=== PATIENT | female | born 1940 | race Caucasian/White ===

== ENCOUNTER 2018-01-22 09:00 | Outpatient (RCR) | payer MEDICARE, SELFPAY ==
--- NOTE | 2017-12-11 14:05 | PT.OIE ---
Current Diagnoses Other female genital prolapse (12/11/17) Female genital prolapse, unspecified (12/11/17) Past Surgical History History of cataract removal with insertion of prosthetic lens History of knee replacement History of knee replacement History of tonsillectomy Status post appendectomy Status post hysterectomy with oophorectomy Physical Therapy Initial Evaluation PT-OP-A Visit Information Start: 12/11/17 11:44 Freq: Status: Active Protocol: Activity Type Activity Date Activity User E-Sign Co-Sign Detail Recorded Client Recorded Date Recorded By Document 12/11/17 09:00 [facility] [email or web address] 12/11/17 11:49 [facility] 12/11/17 09:00 Out-Patient Physical Therapy Visit Information [Visit Information] -Visit Type Initial Evaluation -Visit Start Time 09:00 -Visit Stop Time 09:45 -Total Visit Minutes 1 -Visit Number 1 -Number of SYSTEM OPERATOR Visits 0 [Evaluation Information] -Evaluation Date 12/11/17 PT-OP-B Current Condition Start: 12/11/17 11:44 Freq: Status: Active Protocol: Activity Type Activity Date Activity User E-Sign Co-Sign Detail Recorded Client Recorded Date Recorded By Document 12/11/17 11:49 [facility] [email or web address] 12/11/17 11:58 [facility] 12/11/17 11:49 Current Condition [History of Current Condition] -Onset Date symptoms have been progressing for 5 years -Current Complaints urinary incontinence leaking 4-6 times per day and during the night -History of Current Condition 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 She has also been dealing with diarrhea and has had fecal soilage with this. -Prior Treatments and Tests Tonie has started back using a estrace ring and has been using this for approximately 2 months [Treatment Goals] -Patient/Caregiver Goals Tonie would like to begin working on a home exercise program for strengthening her pelvic floor to minimize her urinary incontinence. She reports she would like to avoid surgery if possilbe. [Prior Functional Status] -Baseline Function- ADL's Independent [Current Functional Impairments ( Reported)] -Functional Limitations- Recreation/ Tonie is limited Hobbies in walking for exercise due to urinary leakage and foot pain. She would like to work up to a pool exercise progam for strenghening. [Personal Factors] -Other Personal Factors That May history of Effect Therapy/Recovery bilateral knee replacement PT-OP-C Subjective Start: 12/11/17 11:44 Freq: Status: Active Protocol: Activity Type Activity Date Activity User E-Sign Co-Sign Detail Recorded Client Recorded Date Recorded By Document 12/11/17 11:49 [facility] [email or web address] 12/11/17 11:58 [facility] 12/11/17 11:49 OP-PT Subjective [Patient Comments] -Patient Comments Tonie's chief complaint today is of urinary leakage 4-6 time per day and during the night. She is wearing poise pads during the day but pull ups at night due to leakage. She is also concerned about her diarrhea as this has been happening for a few months now and it makes it difficult to control her bowels PT-OP-I Pelvic Floor Start: 12/11/17 11:44 Freq: Status: Active Protocol: Activity Type Activity Date Activity User E-Sign Co-Sign Detail Recorded Client Recorded Date Recorded By Document 12/11/17 11:58 [facility] [email or web address] 12/11/17 12:02 [facility] 12/11/17 11:58 Pelvic Floor Assessment [Urine] -Pelvic Floor Surgery Yes -Other Urinary Symptoms strains to fully empty her bladder, history of UTI -Leakage Size Medium -Leakage Cause Cough Exercise Lifting Sneeze Urge -Other Leakage Causes leakage also occurs at night -Leaks Per Day 5 -Voiding Frequency 10 times per day -Nocturia 1-2 times per night -Pads Used In 24 Hours 8 -Urine Pad Type Maxi Pad Depends [Pelvic Clock] -Pelvic Clock 12-3 Atrophy -Pelvic Clock 3-6 Atrophy -Pelvic Clock 6-9 Atrophy -Pelvic Clock 9-12 Atrophy [Prolapse] -Prolapse Comments vaginal vault prolapse [Contraction Ability] -Voluntary Contraction Weak -Voluntary Relaxation Weak -Manual Muscle Testing Left 2 -Manual Muscle Testing Right 2 -Manual Muscle Testing Anterior 2 -Manual Muscle Testing Posterior 2 -Muscle Endurance (Seconds) 4 -Number of Quick Contractions In 10 3 Seconds [Comments] -Pelvic Floor Comments Tonie is able to facilitate all parts of her pelvic floor however she lacks endurance and the contraction is weak. PT-OP-K Range of Motion Start: 12/11/17 14:03 Freq: Status: Active Protocol: Activity Type Activity Date Activity User E-Sign Co-Sign Detail Recorded Client Recorded Date Recorded By Document 12/11/17 14:04 [facility] [email or web address] 12/11/17 14:05 [facility] 12/11/17 14:04 Hip Goniometric Range of Motion [Hip] Measured in Degrees Right -Testing Position Supine -External Rotation 20 [Hip ROM Limitations] -Hip ROM Limitations Soft Tissue Tightness PT-OP-M Strength Start: 12/11/17 11:44 Freq: Status: Active Protocol: Activity Type Activity Date Activity User E-Sign Co-Sign Detail Recorded Client Recorded Date Recorded By Document 12/11/17 14:02 [facility] [email or web address] 12/11/17 14:03 [facility] 12/11/17 14:02 Hip Strength [Hip Manual Muscle Testing] Left -Abduction 4 Good -External Rotation 4 Good Right -Abduction 4 Good -External Rotation 4 Good PT-OP-Q Treatments Start: 12/11/17 11:44 Freq: Status: Active Protocol: Activity Type Activity Date Activity User E-Sign Co-Sign Detail Recorded Client Recorded Date Recorded By Document 12/11/17 09:00 [facility] [email or web address] 12/11/17 13:51 [facility] 12/11/17 09:00 Therapeutic Exercises [Supine Exercises] 2 -Supine Exercise Name pelvic floor long holds 5 second hold time with 10 sec rest 3 -Supine Exercise Name Roll outs with theraband -Resistance level 1 -Reps/Minutes 2 sets of 10 reps 1 -Supine Exercise Name adductor ball squeeze -Reps/Minutes 2 sets of 10 reps PT-OP-T Assessment and Plan Start: 12/11/17 11:44 Freq: Status: Active Protocol: Activity Type Activity Date Activity User E-Sign Co-Sign Detail Recorded Client Recorded Date Recorded By Document 12/11/17 09:00 [facility] [email or web address] 12/11/17 13:57 [facility] 12/11/17 09:00 Physical Therapy Assessment [Rehab Potential] -Rehabilitation Potential Excellent [Evaluation Complexity] -Number of Personal Factors/ 1-2 Comorbidities -Number of Body Systems Impaired 1-2 -Clinical Presentation at Evaluation Stable [Impairments] -Impairments Gait Posture ROM Strength Tone -Other Impairments pelvic floor weakness and vaginal vault prolapse [Goals] Four -Impairment Urinary leakage 4-5 times per day -Longterm Goal (LTG) Decrease pad use per day to 1-2 and frequency of leakage for day to 0-1 time per day. Tonie is able to remain dry at night -LTG Duration 8 weeks Three -Impairment poor postural habits contributing to downward pressure on the pelvic floor -Longterm Goal (LTG) Tonie is educated on a home exercise program addressing posture Two -Impairment poor endurance of pelvic floor contractions at 4-5 second hold time -Short Term Goal (STG) Improve endurance of the pelvic floor to 10 second hold time in supine One -Impairment Weakness of the pelvic floor at 2/5 MMT and vaginal vault prolapse -Corner Cutter Goal (LTG) improve strength of the pelvic floor to 4/5 for all parts of the levator ani to improve support of the vaginal wall -LTG Duration 8 weeks [Assessment Summary] -Assessment Tonie presents with signs and symptoms of pelvic floor weakness and urinary leakage . She is able to facilitate all parts of the pelvic floor but is weak in all areas of her levator ani. She also lacks endurance of the pelvic floor. Her right hip is tight and weak in her ER and hip abduction and postural habits may be contributing to her prolapse as well. Tonie tolerated today's treatment well and is a good candidate for PT Physical Therapy Plan [Frequency and Duration] -Frequency of Treatment 1x/Week -Plan of Care Start Date 12/11/17 -Plan of Care End Date 02/05/18 [Therapeutic Interventions] -Therapeutic Interventions Home Exercise Program Neuromuscular Re-education Self-Care/Home Management Therapeutic Exercises -Modalities Biofeedback Electric Stimulation Provider Signature Date
--- NOTE | 2017-12-11 14:07 | PT.OPPOC ---
Current Diagnoses Other female genital prolapse (12/11/17) Female genital prolapse, unspecified (12/11/17) Provider Visit Care Team Role Provider Type Ilana Alejandra DO Primary Care Provider Physician Specialty: Family Practice Address: [address] [place] [address], [id number] Email: [email or web address] Stacia Johnson MD Attending Provider Physician Specialty: G[employer] WE[employer] PU[employer]ER Address: [address] [place] [address], [id number] Email: [email or web address] Plan Of Care PT-OP-T Assessment and Plan Start: 12/11/17 11:44 Freq: Status: Active Protocol: Document 12/11/17 09:00 [facility] (Rec: 12/11/17 13:57 [facility] [email or web address]) Physical Therapy Assessment Rehab Potential Rehabilitation Potential Excellent Evaluation Complexity Number of Personal Factors/Comorbidities 1-2 Number of Body Systems Impaired 1-2 Clinical Presentation at Evaluation Stable Impairments Impairments Gait Posture ROM Strength Tone Other Impairments pelvic floor weakness and vaginal vault prolapse Goals Four Impairment Urinary leakage 4-5 times per day Home Care Manager Goal (LTG) Decrease pad use per day to 1- 2 and frequency of leakage for day to 0-1 time per day. Tonie is able to remain dry at night LTG Duration 8 weeks Three Impairment poor postural habits contributing to downward pressure on the pelvic floor Retirement Goal (LTG) Tonie is educated on a home exercise program addressing posture Two Impairment poor endurance of pelvic floor contractions at 4-5 second hold time Short Term Goal (STG) Improve endurance of the pelvic floor to 10 second hold time in supine One Impairment Weakness of the pelvic floor at 2/5 MMT and vaginal vault prolapse Home Care Manager Goal (LTG) improve strength of the pelvic floor to 4/5 for all parts of the levator ani to improve support of the vaginal wall LTG Duration 8 weeks Assessment Summary Assessment Tonie presents with signs and symptoms of pelvic floor weakness and urinary leakage. She is able to facilitate all parts of the pelvic floor but is weak in all areas of her levator ani. She also lacks endurance of the pelvic floor. Her right hip is tight and weak in her ER and hip abduction and postural habits may be contributing to her prolapse as well. Tonie tolerated today's treatment well and is a good candidate for PT Physical Therapy Plan Frequency and Duration Frequency of Treatment 1x/Week Plan of Care Start Date 12/11/17 Plan of Care End Date 02/05/18 Therapeutic Interventions Therapeutic Interventions Home Exercise Program Neuromuscular Re-education Self-Care/Home Management Therapeutic Exercises Modalities Biofeedback Electric Stimulation Plan of Care Dates Plan of Care Start Date 12/11/17 Plan of Care End Date 02/05/18 Please Sign and Return: I have reviewed this Plan of Care and certify that the skilled therapy services above are required to meet the patient???s needs. Physician Signature Date Printed Name and Credentials
--- NOTE | 2017-12-19 14:04 | PT.OTN ---
Current Diagnoses Other female genital prolapse (12/18/17) Female genital prolapse, unspecified (12/18/17) Physical Therapy Treatment Note PT-OP-A Visit Information Start: 12/11/17 11:44 Freq: Status: Active Protocol: Document 12/18/17 09:00 [facility] (Rec: 12/19/17 14:03 [facility] [email or web address]) Out-Patient Physical Therapy Visit Information Visit Information Visit Type Treatment Note Visit Start Time 09:00 Visit Stop Time 09:45 Total Visit Minutes 45 Visit Number 2 Number of WHOLESALE BUYER Visits 0 PT-OP-B Current Condition Start: 12/11/17 11:44 Freq: Status: Active Protocol: Document 12/11/17 11:49 [facility] (Rec: 12/11/17 11:58 [facility] [email or web address]) Current Condition History of Current Condition Onset Date symptoms have been progressing for 5 years Current Complaints urinary incontinence leaking 4 -6 times per day and during the night History of Current Condition 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 She has also been dealing with diarrhea and has had fecal soilage with this. Prior Treatments and Tests Tonie has started back using a estrace ring and has been using this for approximately 2 months Treatment Goals Patient/Caregiver Goals Tonie would like to begin working on a home exercise program for strengthening her pelvic floor to minimize her urinary incontinence. She reports she would like to avoid surgery if possilbe. Prior Functional Status Baseline Function- ADL's Independent Current Functional Impairments (Reported) Functional Limitations- Recreation/ Tonie is limited in walking for Hobbies exercise due to urinary leakage and foot pain. She would like to work up to a pool exercise progam for strenghening. Personal Factors Other Personal Factors That May Effect history of bilateral knee Therapy/Recovery replacement PT-OP-C Subjective Start: 12/11/17 11:44 Freq: Status: Active Protocol: Document 12/18/17 09:00 [facility] (Rec: 12/19/17 14:03 [facility] [email or web address]) OP-PT Subjective Patient Comments Patient Comments Tonie reports she has been working on her home program Patient Reported Progress Same PT-OP-I Pelvic Floor Start: 12/11/17 11:44 Freq: Status: Active Protocol: Document 12/11/17 11:58 [facility] (Rec: 12/11/17 12:02 [facility] [email or web address]) Pelvic Floor Assessment Urine Pelvic Floor Surgery Yes Other Urinary Symptoms strains to fully empty her bladder, history of UTI Leakage Size Medium Leakage Cause Cough Exercise Lifting Sneeze Urge Other Leakage Causes leakage also occurs at night Leaks Per Day 5 Voiding Frequency 10 times per day Nocturia 1-2 times per night Pads Used In 24 Hours 8 Urine Pad Type Maxi Pad Depends Pelvic Clock Pelvic Clock 12-3 Atrophy Pelvic Clock 3-6 Atrophy Pelvic Clock 6-9 Atrophy Pelvic Clock 9-12 Atrophy Prolapse Prolapse Comments vaginal vault prolapse Contraction Ability Voluntary Contraction Weak Voluntary Relaxation Weak Manual Muscle Testing Left 2 Manual Muscle Testing Right 2 Manual Muscle Testing Anterior 2 Manual Muscle Testing Posterior 2 Muscle Endurance (Seconds) 4 Number of Quick Contractions In 10 3 Seconds Comments Pelvic Floor Comments Tonie is able to facilitate all parts of her pelvic floor however she lacks endurance and the contraction is weak. PT-OP-K Range of Motion Start: 12/11/17 14:03 Freq: Status: Active Protocol: Document 12/11/17 14:04 [facility] (Rec: 12/11/17 14:05 [facility] [email or web address]) Hip Goniometric Range of Motion Hip Measured in Degrees Right Testing Position Supine External Rotation 20 Hip ROM Limitations Hip ROM Limitations Soft Tissue Tightness PT-OP-M Strength Start: 12/11/17 11:44 Freq: Status: Active Protocol: Document 12/11/17 14:02 [facility] (Rec: 12/11/17 14:03 [facility] [email or web address]) Hip Strength Hip Manual Muscle Testing Left Abduction 4 Good External Rotation 4 Good Right Abduction 4 Good External Rotation 4 Good PT-OP-Q Treatments Start: 12/11/17 11:44 Freq: Status: Active Protocol: Document 12/18/17 09:00 [facility] (Rec: 12/19/17 14:03 [facility] [email or web address]) Therapeutic Exercises Supine Exercises 6 Supine Exercise Name pelvic floor quick contractions Reps/Minutes 2 second hold with 2 second rest x 10 reps 4 Supine Exercise Name supine horizontal abduction with theraband laying on 1/2 foam roll Reps/Minutes 2 sets of 10 reps Comments for posture 5 Supine Exercise Name supine foam roll stretch Reps/Minutes 1-2 minutes 2 Supine Exercise Name pelvic floor long holds 10 second hold time with 10 sec rest 3 Supine Exercise Name Roll outs with theraband Resistance level 1 Reps/Minutes 2 sets of 10 reps 1 Supine Exercise Name adductor ball squeeze Reps/Minutes 2 sets of 10 reps PT-OP-T Assessment and Plan Start: 12/11/17 11:44 Freq: Status: Active Protocol: Document 12/18/17 09:00 [facility] (Rec: 12/19/17 14:03 [facility] [email or web address]) Physical Therapy Plan Therapeutic Interventions Therapeutic Interventions Home Exercise Program Neuromuscular Re-education Self-Care/Home Management Therapeutic Exercises Modalities Biofeedback Electric Stimulation Next Visit Focus/Plan Next Visit Plan progress dynamic stabilization and continue to work postural exercises as Tonie tends to lean forward placing increased pressure on her bladder
--- NOTE | 2017-12-25 10:02 | PT.OTN ---
Current Diagnoses Other female genital prolapse (12/25/17) Female genital prolapse, unspecified (12/25/17) Physical Therapy Treatment Note PT-OP-A Visit Information Start: 12/11/17 11:44 Freq: Status: Active Protocol: Document 12/25/17 09:54 [facility] (Rec: 12/25/17 09:59 [facility] [email or web address]) Out-Patient Physical Therapy Visit Information Visit Information Visit Type Treatment Note Visit Start Time 09:00 Visit Stop Time 09:45 Total Visit Minutes 45 Visit Number 3 Number of WOVEN BLIND LOOM TENDER Visits 0 PT-OP-B Current Condition Start: 12/11/17 11:44 Freq: Status: Active Protocol: Document 12/11/17 11:49 [facility] (Rec: 12/11/17 11:58 [facility] [email or web address]) Current Condition History of Current Condition Onset Date symptoms have been progressing for 5 years Current Complaints urinary incontinence leaking 4 -6 times per day and during the night History of Current Condition 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 She has also been dealing with diarrhea and has had fecal soilage with this. Prior Treatments and Tests Tonie has started back using a estrace ring and has been using this for approximately 2 months Treatment Goals Patient/Caregiver Goals Tonie would like to begin working on a home exercise program for strengthening her pelvic floor to minimize her urinary incontinence. She reports she would like to avoid surgery if possilbe. Prior Functional Status Baseline Function- ADL's Independent Current Functional Impairments (Reported) Functional Limitations- Recreation/ Tonie is limited in walking for Hobbies exercise due to urinary leakage and foot pain. She would like to work up to a pool exercise progam for strenghening. Personal Factors Other Personal Factors That May Effect history of bilateral knee Therapy/Recovery replacement PT-OP-C Subjective Start: 12/11/17 11:44 Freq: Status: Active Protocol: Document 12/25/17 09:54 [facility] (Rec: 12/25/17 09:59 [facility] [email or web address]) OP-PT Subjective Patient Comments Patient Comments Tonie reports she has been tring to get her exercises in more. She woke up dry at 1:00 am for the first time last night Patient Reported Progress Improving PT-OP-I Pelvic Floor Start: 12/11/17 11:44 Freq: Status: Active Protocol: Document 12/11/17 11:58 [facility] (Rec: 12/11/17 12:02 [facility] [email or web address]) Pelvic Floor Assessment Urine Pelvic Floor Surgery Yes Other Urinary Symptoms strains to fully empty her bladder, history of UTI Leakage Size Medium Leakage Cause Cough Exercise Lifting Sneeze Urge Other Leakage Causes leakage also occurs at night Leaks Per Day 5 Voiding Frequency 10 times per day Nocturia 1-2 times per night Pads Used In 24 Hours 8 Urine Pad Type Maxi Pad Depends Pelvic Clock Pelvic Clock 12-3 Atrophy Pelvic Clock 3-6 Atrophy Pelvic Clock 6-9 Atrophy Pelvic Clock 9-12 Atrophy Prolapse Prolapse Comments vaginal vault prolapse Contraction Ability Voluntary Contraction Weak Voluntary Relaxation Weak Manual Muscle Testing Left 2 Manual Muscle Testing Right 2 Manual Muscle Testing Anterior 2 Manual Muscle Testing Posterior 2 Muscle Endurance (Seconds) 4 Number of Quick Contractions In 10 3 Seconds Comments Pelvic Floor Comments Tonie is able to facilitate all parts of her pelvic floor however she lacks endurance and the contraction is weak. PT-OP-K Range of Motion Start: 12/11/17 14:03 Freq: Status: Active Protocol: Document 12/11/17 14:04 [facility] (Rec: 12/11/17 14:05 [facility] [email or web address]) Hip Goniometric Range of Motion Hip Measured in Degrees Right Testing Position Supine External Rotation 20 Hip ROM Limitations Hip ROM Limitations Soft Tissue Tightness PT-OP-M Strength Start: 12/11/17 11:44 Freq: Status: Active Protocol: Document 12/11/17 14:02 [facility] (Rec: 12/11/17 14:03 [facility] [email or web address]) Hip Strength Hip Manual Muscle Testing Left Abduction 4 Good External Rotation 4 Good Right Abduction 4 Good External Rotation 4 Good PT-OP-Q Treatments Start: 12/11/17 11:44 Freq: Status: Active Protocol: Document 12/25/17 09:54 [facility] (Rec: 12/25/17 09:59 [facility] [email or web address]) Cardio Equipment Recumbent Elliptical ([employer]) Duration (Minutes) 5 Therapeutic Exercises Supine Exercises 4 Supine Exercise Name supine horizontal abduction with theraband laying on 1/2 foam roll Reps/Minutes 2 sets of 10 reps Comments for posture 5 Supine Exercise Name supine foam roll stretch Reps/Minutes 1-2 minutes 2 Supine Exercise Name pelvic floor long holds 10 second hold time with 10 sec rest Reps/Minutes 3 sets of 10 reps 3 Supine Exercise Name Roll outs with theraband Resistance level 1 Reps/Minutes 2 sets of 10 reps 1 Supine Exercise Name adductor ball squeeze Reps/Minutes 2 sets of 10 reps Standing Exercises 2 Standing Exercise Name standing rows Side bilateral Resistance level 1 theraband Reps/Minutes 2 sets of 10 reps 1 Standing Exercise Name standing bilateral shoulder extension Equipment Used level 1 theraband Reps/Minutes 2 sets of 10 reps Self-Care/Home Management Treatment Education Patient Education Home Exercise Program PT-OP-T Assessment and Plan Start: 12/11/17 11:44 Freq: Status: Active Protocol: Document 12/25/17 09:54 [facility] (Rec: 12/25/17 09:59 [facility] [email or web address]) Physical Therapy Plan Frequency and Duration Frequency of Treatment 1x/Week Plan of Care Start Date 12/11/17 Plan of Care End Date 02/05/18 Therapeutic Interventions Therapeutic Interventions Home Exercise Program Neuromuscular Re-education Self-Care/Home Management Therapeutic Exercises Modalities Biofeedback Electric Stimulation Next Visit Focus/Plan Next Visit Plan continue to progress dynamic stabilization and posture. Start with biofeedback first Please Sign and Return: I have reviewed this Plan of Care and certify that the skilled therapy services above are required to meet the patient???s needs. Physician Signature Date Printed Name and Credentials Clinical Instructor Signature Printed Name and Credentials
--- NOTE | 2018-01-01 10:43 | PT.OTN ---
Current Diagnoses Other female genital prolapse (01/01/18) Female genital prolapse, unspecified (01/01/18) Physical Therapy Treatment Note PT-OP-A Visit Information Start: 12/11/17 11:44 Freq: Status: Active Protocol: Document 01/01/18 09:24 [facility] (Rec: 01/01/18 09:26 [facility] [email or web address]) Out-Patient Physical Therapy Visit Information Visit Information Visit Type Treatment Note Visit Start Time 09:00 Visit Stop Time 09:45 Total Visit Minutes 45 Visit Number 4 Number of ENTERTAINER OR VARIETY ARTIST Visits 0 Evaluation Information Evaluation Date 12/11/17 PT-OP-B Current Condition Start: 12/11/17 11:44 Freq: Status: Active Protocol: Document 12/11/17 11:49 [facility] (Rec: 12/11/17 11:58 [facility] [email or web address]) Current Condition History of Current Condition Onset Date symptoms have been progressing for 5 years Current Complaints urinary incontinence leaking 4 -6 times per day and during the night History of Current Condition 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 She has also been dealing with diarrhea and has had fecal soilage with this. Prior Treatments and Tests Bossman has started back using a estrace ring and has been using this for approximately 2 months Treatment Goals Patient/Caregiver Goals Bossman would like to begin working on a home exercise program for strengthening her pelvic floor to minimize her urinary incontinence. She reports she would like to avoid surgery if possilbe. Prior Functional Status Baseline Function- ADL's Independent Current Functional Impairments (Reported) Functional Limitations- Recreation/ Bossman is limited in walking for Hobbies exercise due to urinary leakage and foot pain. She would like to work up to a pool exercise progam for strenghening. Personal Factors Other Personal Factors That May Effect history of bilateral knee Therapy/Recovery replacement PT-OP-C Subjective Start: 12/11/17 11:44 Freq: Status: Active Protocol: Document 01/01/18 09:24 [facility] (Rec: 01/01/18 09:26 [facility] [email or web address]) OP-PT Subjective Patient Comments Patient Comments bossman reports she has a visit with Dr. Copeland February 11. She felt sore in her shoulders from the new theraband postural exercises Patient Reported Progress Improving PT-OP-I Pelvic Floor Start: 12/11/17 11:44 Freq: Status: Active Protocol: Document 12/11/17 11:58 [facility] (Rec: 12/11/17 12:02 [facility] [email or web address]) Pelvic Floor Assessment Urine Pelvic Floor Surgery Yes Other Urinary Symptoms strains to fully empty her bladder, history of UTI Leakage Size Medium Leakage Cause Cough Exercise Lifting Sneeze Urge Other Leakage Causes leakage also occurs at night Leaks Per Day 5 Voiding Frequency 10 times per day Nocturia 1-2 times per night Pads Used In 24 Hours 8 Urine Pad Type Maxi Pad Depends Pelvic Clock Pelvic Clock 12-3 Atrophy Pelvic Clock 3-6 Atrophy Pelvic Clock 6-9 Atrophy Pelvic Clock 9-12 Atrophy Prolapse Prolapse Comments vaginal vault prolapse Contraction Ability Voluntary Contraction Weak Voluntary Relaxation Weak Manual Muscle Testing Left 2 Manual Muscle Testing Right 2 Manual Muscle Testing Anterior 2 Manual Muscle Testing Posterior 2 Muscle Endurance (Seconds) 4 Number of Quick Contractions In 10 3 Seconds Comments Pelvic Floor Comments Bossman is able to facilitate all parts of her pelvic floor however she lacks endurance and the contraction is weak. PT-OP-K Range of Motion Start: 12/11/17 14:03 Freq: Status: Active Protocol: Document 12/11/17 14:04 [facility] (Rec: 12/11/17 14:05 [facility] [email or web address]) Hip Goniometric Range of Motion Hip Measured in Degrees Right Testing Position Supine External Rotation 20 Hip ROM Limitations Hip ROM Limitations Soft Tissue Tightness PT-OP-M Strength Start: 12/11/17 11:44 Freq: Status: Active Protocol: Document 12/11/17 14:02 [facility] (Rec: 12/11/17 14:03 [facility] [email or web address]) Hip Strength Hip Manual Muscle Testing Left Abduction 4 Good External Rotation 4 Good Right Abduction 4 Good External Rotation 4 Good PT-OP-Q Treatments Start: 12/11/17 11:44 Freq: Status: Active Protocol: Document 01/01/18 10:37 [facility] (Rec: 01/01/18 10:43 [facility] [email or web address]) Cardio Equipment Recumbent Elliptical ([employer]) Duration (Minutes) 5 Therapeutic Exercises Supine Exercises 6 Supine Exercise Name pelvic floor quick contractions Reps/Minutes 2 second hold with 2 second rest x 10 reps 4 Supine Exercise Name supine horizontal abduction with theraband laying on 1/2 foam roll Reps/Minutes 2 sets of 10 reps Comments for posture 5 Supine Exercise Name supine foam roll stretch Reps/Minutes 1-2 minutes 2 Supine Exercise Name pelvic floor long holds 10 second hold time with 10 sec rest Reps/Minutes 3 sets of 10 reps 3 Supine Exercise Name Roll outs with theraband Resistance level 1 Reps/Minutes 2 sets of 10 reps 1 Supine Exercise Name adductor ball squeeze Reps/Minutes 2 sets of 10 reps Standing Exercises 2 Standing Exercise Name standing rows Side bilateral Resistance level 1 theraband Reps/Minutes 2 sets of 10 reps 1 Standing Exercise Name standing bilateral shoulder extension Equipment Used level 1 theraband Reps/Minutes 2 sets of 10 reps Self-Care/Home Management Treatment Education Patient Education Home Exercise Program Other Education worked on urge deference technique PT-OP-T Assessment and Plan Start: 12/11/17 11:44 Freq: Status: Active Protocol: Document 01/01/18 10:37 [facility] (Rec: 01/01/18 10:43 [facility] [email or web address]) Physical Therapy Assessment Assessment Summary Assessment Bossman is making steady progress weith her pelvic floor strengthening her avg today on EMG biofeedback was 10.7 with maximum of 21.3 uv. She notes at times her leakage will happen after she has been sitting. We talked today about urge deference technique before standing and about tightening the pelivc floor as she stands from sitting Physical Therapy Plan Frequency and Duration Frequency of Treatment 1x/Week Plan of Care Start Date 12/11/17 Plan of Care End Date 02/05/18 Therapeutic Interventions Therapeutic Interventions Home Exercise Program Neuromuscular Re-education Self-Care/Home Management Therapeutic Exercises Modalities Biofeedback Electric Stimulation Next Visit Focus/Plan Next Visit Plan work on sit - stand with pelvic floor activation and continue to address posture Please Sign and Return: I have reviewed this Plan of Care and certify that the skilled therapy services above are required to meet the patient???s needs. Physician Signature Date Printed Name and Credentials Clinical Instructor Signature Printed Name and Credentials
--- NOTE | 2018-01-08 11:17 | PT.OTN ---
Current Diagnoses Other female genital prolapse (01/08/18) Female genital prolapse, unspecified (01/08/18) Physical Therapy Treatment Note PT-OP-A Visit Information Start: 12/11/17 11:44 Freq: Status: Active Protocol: Document 01/08/18 11:03 [facility] (Rec: 01/08/18 11:16 [facility] [email or web address]) Out-Patient Physical Therapy Visit Information Visit Information Visit Type Treatment Note Visit Start Time 09:00 Visit Stop Time 09:45 Total Visit Minutes 45 Visit Number 5 Number of TOP DYEING MACHINE LOADER Visits 0 PT-OP-B Current Condition Start: 12/11/17 11:44 Freq: Status: Active Protocol: Document 12/11/17 11:49 [facility] (Rec: 12/11/17 11:58 [facility] [email or web address]) Current Condition History of Current Condition Onset Date symptoms have been progressing for 5 years Current Complaints urinary incontinence leaking 4 -6 times per day and during the night History of Current Condition 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 She has also been dealing with diarrhea and has had fecal soilage with this. Prior Treatments and Tests Tonie has started back using a estrace ring and has been using this for approximately 2 months Treatment Goals Patient/Caregiver Goals Tonie would like to begin working on a home exercise program for strengthening her pelvic floor to minimize her urinary incontinence. She reports she would like to avoid surgery if possilbe. Prior Functional Status Baseline Function- ADL's Independent Current Functional Impairments (Reported) Functional Limitations- Recreation/ Tonie is limited in walking for Hobbies exercise due to urinary leakage and foot pain. She would like to work up to a pool exercise progam for strenghening. Personal Factors Other Personal Factors That May Effect history of bilateral knee Therapy/Recovery replacement PT-OP-C Subjective Start: 12/11/17 11:44 Freq: Status: Active Protocol: Document 01/08/18 11:03 [facility] (Rec: 01/08/18 11:16 [facility] [email or web address]) OP-PT Subjective Patient Comments Patient Comments Tonie reports she is trying to do her exercises more. She has had less accidents during the day but her greatest challenge is when she wakes up in the am and her bladder is very full it is difficult to make it to the toilet Patient Reported Progress Improving PT-OP-I Pelvic Floor Start: 12/11/17 11:44 Freq: Status: Active Protocol: Document 12/11/17 11:58 [facility] (Rec: 12/11/17 12:02 [facility] [email or web address]) Pelvic Floor Assessment Urine Pelvic Floor Surgery Yes Other Urinary Symptoms strains to fully empty her bladder, history of UTI Leakage Size Medium Leakage Cause Cough Exercise Lifting Sneeze Urge Other Leakage Causes leakage also occurs at night Leaks Per Day 5 Voiding Frequency 10 times per day Nocturia 1-2 times per night Pads Used In 24 Hours 8 Urine Pad Type Maxi Pad Depends Pelvic Clock Pelvic Clock 12-3 Atrophy Pelvic Clock 3-6 Atrophy Pelvic Clock 6-9 Atrophy Pelvic Clock 9-12 Atrophy Prolapse Prolapse Comments vaginal vault prolapse Contraction Ability Voluntary Contraction Weak Voluntary Relaxation Weak Manual Muscle Testing Left 2 Manual Muscle Testing Right 2 Manual Muscle Testing Anterior 2 Manual Muscle Testing Posterior 2 Muscle Endurance (Seconds) 4 Number of Quick Contractions In 10 3 Seconds Comments Pelvic Floor Comments Tonie is able to facilitate all parts of her pelvic floor however she lacks endurance and the contraction is weak. PT-OP-K Range of Motion Start: 12/11/17 14:03 Freq: Status: Active Protocol: Document 12/11/17 14:04 [facility] (Rec: 12/11/17 14:05 [facility] [email or web address]) Hip Goniometric Range of Motion Hip Measured in Degrees Right Testing Position Supine External Rotation 20 Hip ROM Limitations Hip ROM Limitations Soft Tissue Tightness PT-OP-M Strength Start: 12/11/17 11:44 Freq: Status: Active Protocol: Document 12/11/17 14:02 [facility] (Rec: 12/11/17 14:03 [facility] [email or web address]) Hip Strength Hip Manual Muscle Testing Left Abduction 4 Good External Rotation 4 Good Right Abduction 4 Good External Rotation 4 Good PT-OP-Q Treatments Start: 12/11/17 11:44 Freq: Status: Active Protocol: Document 01/08/18 11:03 [facility] (Rec: 01/08/18 11:16 [facility] [email or web address]) Therapeutic Exercises Supine Exercises 4 Supine Exercise Name supine horizontal abduction with theraband laying on 1/2 foam roll Reps/Minutes 2 sets of 10 reps Comments for posture 5 Supine Exercise Name supine foam roll stretch Reps/Minutes 1-2 minutes 2 Supine Exercise Name pelvic floor long holds 10 second hold time with 10 sec rest Reps/Minutes 3 sets of 10 reps 3 Supine Exercise Name Roll outs with theraband Resistance level 1 Reps/Minutes 3 sets of 10 reps 1 Supine Exercise Name adductor ball squeeze Reps/Minutes 2 sets of 10 reps Standing Exercises 2 Standing Exercise Name standing rows Side bilateral Resistance level 1 theraband Reps/Minutes 2 sets of 10 reps 1 Standing Exercise Name standing bilateral shoulder extension Equipment Used level 1 theraband Reps/Minutes 2 sets of 10 reps PT-OP-T Assessment and Plan Start: 12/11/17 11:44 Freq: Status: Active Protocol: Document 01/08/18 11:03 [facility] (Rec: 01/08/18 11:16 [facility] [email or web address]) Physical Therapy Assessment Assessment Summary Assessment worked alot on breathing techniques today with Tonie while on the foam roll to decrease spasm Physical Therapy Plan Frequency and Duration Frequency of Treatment 1x/Week Plan of Care Start Date 12/11/17 Plan of Care End Date 02/05/18 Therapeutic Interventions Therapeutic Interventions Home Exercise Program Neuromuscular Re-education Self-Care/Home Management Therapeutic Exercises Modalities Biofeedback Electric Stimulation Next Visit Focus/Plan Next Visit Plan work on sit - stand with pelvic floor activation and continue to address posture Please Sign and Return: I have reviewed this Plan of Care and certify that the skilled therapy services above are required to meet the patient?s needs. Physician Signature Date Printed Name and Credentials Clinical Instructor Signature Printed Name and Credentials
--- NOTE | 2018-01-15 12:01 | PT.OTN ---
Current Diagnoses Other female genital prolapse (01/15/18) Female genital prolapse, unspecified (01/15/18) Physical Therapy Treatment Note PT-OP-A Visit Information Start: 12/11/17 11:44 Freq: Status: Active Protocol: Document 01/15/18 11:50 [facility] (Rec: 01/15/18 11:54 [facility] [email or web address]) Out-Patient Physical Therapy Visit Information Visit Information Visit Type Treatment Note Visit Start Time 09:00 Visit Stop Time 09:45 Total Visit Minutes 45 Visit Number 6 Number of CONVERTIBLE TOP INSTALLER Visits 0 Evaluation Information Evaluation Date 12/11/17 PT-OP-B Current Condition Start: 12/11/17 11:44 Freq: Status: Active Protocol: Document 12/11/17 11:49 [facility] (Rec: 12/11/17 11:58 [facility] [email or web address]) Current Condition History of Current Condition Onset Date symptoms have been progressing for 5 years Current Complaints urinary incontinence leaking 4 -6 times per day and during the night History of Current Condition 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 She has also been dealing with diarrhea and has had fecal soilage with this. Prior Treatments and Tests Tonie has started back using a estrace ring and has been using this for approximately 2 months Treatment Goals Patient/Caregiver Goals Tonie would like to begin working on a home exercise program for strengthening her pelvic floor to minimize her urinary incontinence. She reports she would like to avoid surgery if possilbe. Prior Functional Status Baseline Function- ADL's Independent Current Functional Impairments (Reported) Functional Limitations- Recreation/ Tonie is limited in walking for Hobbies exercise due to urinary leakage and foot pain. She would like to work up to a pool exercise progam for strenghening. Personal Factors Other Personal Factors That May Effect history of bilateral knee Therapy/Recovery replacement PT-OP-C Subjective Start: 12/11/17 11:44 Freq: Status: Active Protocol: Document 01/15/18 11:50 [facility] (Rec: 01/15/18 11:54 [facility] [email or web address]) OP-PT Subjective Patient Comments Patient Comments Tracy reports she has been getting into more of a routine of exercising at home Patient Reported Progress Improving PT-OP-I Pelvic Floor Start: 12/11/17 11:44 Freq: Status: Active Protocol: Document 12/11/17 11:58 [facility] (Rec: 12/11/17 12:02 [facility] [email or web address]) Pelvic Floor Assessment Urine Pelvic Floor Surgery Yes Other Urinary Symptoms strains to fully empty her bladder, history of UTI Leakage Size Medium Leakage Cause Cough Exercise Lifting Sneeze Urge Other Leakage Causes leakage also occurs at night Leaks Per Day 5 Voiding Frequency 10 times per day Nocturia 1-2 times per night Pads Used In 24 Hours 8 Urine Pad Type Maxi Pad Depends Pelvic Clock Pelvic Clock 12-3 Atrophy Pelvic Clock 3-6 Atrophy Pelvic Clock 6-9 Atrophy Pelvic Clock 9-12 Atrophy Prolapse Prolapse Comments vaginal vault prolapse Contraction Ability Voluntary Contraction Weak Voluntary Relaxation Weak Manual Muscle Testing Left 2 Manual Muscle Testing Right 2 Manual Muscle Testing Anterior 2 Manual Muscle Testing Posterior 2 Muscle Endurance (Seconds) 4 Number of Quick Contractions In 10 3 Seconds Comments Pelvic Floor Comments Tonie is able to facilitate all parts of her pelvic floor however she lacks endurance and the contraction is weak. PT-OP-K Range of Motion Start: 12/11/17 14:03 Freq: Status: Active Protocol: Document 12/11/17 14:04 [facility] (Rec: 12/11/17 14:05 [facility] [email or web address]) Hip Goniometric Range of Motion Hip Measured in Degrees Right Testing Position Supine External Rotation 20 Hip ROM Limitations Hip ROM Limitations Soft Tissue Tightness PT-OP-M Strength Start: 12/11/17 11:44 Freq: Status: Active Protocol: Document 12/11/17 14:02 [facility] (Rec: 12/11/17 14:03 [facility] [email or web address]) Hip Strength Hip Manual Muscle Testing Left Abduction 4 Good External Rotation 4 Good Right Abduction 4 Good External Rotation 4 Good PT-OP-Q Treatments Start: 12/11/17 11:44 Freq: Status: Active Protocol: Document 01/15/18 11:54 [facility] (Rec: 01/15/18 11:57 [facility] [email or web address]) Cardio Equipment Recumbent Bicycle Duration (Minutes) 5 Therapeutic Exercises Supine Exercises 6 Supine Exercise Name pelvic floor quick contractions Reps/Minutes 2 second hold with 2 second rest x 10 reps 4 Supine Exercise Name supine horizontal abduction with theraband laying on 1/2 foam roll Reps/Minutes 2 sets of 10 reps Comments for posture 5 Supine Exercise Name supine foam roll stretch Reps/Minutes 1-2 minutes 2 Supine Exercise Name pelvic floor long holds 10 second hold time with 10 sec rest Reps/Minutes 3 sets of 10 reps 3 Supine Exercise Name Roll outs with theraband Resistance level 1 Reps/Minutes 3 sets of 10 reps 1 Supine Exercise Name adductor ball squeeze Reps/Minutes 2 sets of 10 reps Standing Exercises 2 Standing Exercise Name standing rows Side bilateral Resistance level 1 theraband Reps/Minutes 2 sets of 10 reps 1 Standing Exercise Name standing bilateral shoulder extension Equipment Used level 1 theraband Reps/Minutes 2 sets of 10 reps PT-OP-T Assessment and Plan Start: 12/11/17 11:44 Freq: Status: Active Protocol: Document 01/15/18 11:50 [facility] (Rec: 01/15/18 11:54 [facility] [email or web address]) Physical Therapy Assessment Assessment Summary Assessment good improvements with endurance of pelvic floor long holds today Physical Therapy Plan Frequency and Duration Frequency of Treatment 1x/Week Plan of Care Start Date 12/11/17 Plan of Care End Date 02/05/18 Therapeutic Interventions Therapeutic Interventions Home Exercise Program Neuromuscular Re-education Self-Care/Home Management Therapeutic Exercises Modalities Biofeedback Electric Stimulation Next Visit Focus/Plan Next Visit Plan work on standing pelvic floor work next visit Please Sign and Return: I have reviewed this Plan of Care and certify that the skilled therapy services above are required to meet the patient?s needs. Physician Signature Date Printed Name and Credentials Clinical Instructor Signature Printed Name and Credentials
--- NOTE | 2018-01-22 11:01 | PT.OTN ---
Current Diagnoses Other female genital prolapse (01/22/18) Female genital prolapse, unspecified (01/22/18) Physical Therapy Treatment Note PT-OP-A Visit Information Start: 12/11/17 11:44 Freq: Status: Active Protocol: Document 01/22/18 10:54 [facility] (Rec: 01/22/18 11:01 [facility] [email or web address]) Out-Patient Physical Therapy Visit Information Visit Information Visit Type Treatment Note Visit Start Time 09:00 Visit Stop Time 09:45 Total Visit Minutes 45 Visit Number 7 Number of ORDER TO DELIVERY SUPERVISOR Visits 0 Evaluation Information Evaluation Date 12/11/17 PT-OP-B Current Condition Start: 12/11/17 11:44 Freq: Status: Active Protocol: Document 12/11/17 11:49 [facility] (Rec: 12/11/17 11:58 [facility] [email or web address]) Current Condition History of Current Condition Onset Date symptoms have been progressing for 5 years Current Complaints urinary incontinence leaking 4 -6 times per day and during the night History of Current Condition 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 She has also been dealing with diarrhea and has had fecal soilage with this. Prior Treatments and Tests Tonie has started back using a estrace ring and has been using this for approximately 2 months Treatment Goals Patient/Caregiver Goals Tonie would like to begin working on a home exercise program for strengthening her pelvic floor to minimize her urinary incontinence. She reports she would like to avoid surgery if possilbe. Prior Functional Status Baseline Function- ADL's Independent Current Functional Impairments (Reported) Functional Limitations- Recreation/ Tonie is limited in walking for Hobbies exercise due to urinary leakage and foot pain. She would like to work up to a pool exercise progam for strenghening. Personal Factors Other Personal Factors That May Effect history of bilateral knee Therapy/Recovery replacement PT-OP-C Subjective Start: 12/11/17 11:44 Freq: Status: Active Protocol: Document 01/22/18 10:54 AM[facility] (Rec: 01/22/18 11:01 [facility] [email or web address]) OP-PT Subjective Patient Comments Patient Comments Tracy has a MD visit with Dr Melba Copeland in 3 weeks Patient Reported Progress Same PT-OP-I Pelvic Floor Start: 12/11/17 11:44 Freq: Status: Active Protocol: Document 12/11/17 11:58 AM[facility] (Rec: 12/11/17 12:02 [facility] [email or web address]) Pelvic Floor Assessment Urine Pelvic Floor Surgery Yes Other Urinary Symptoms strains to fully empty her bladder, history of UTI Leakage Size Medium Leakage Cause Cough Exercise Lifting Sneeze Urge Other Leakage Causes leakage also occurs at night Leaks Per Day 5 Voiding Frequency 10 times per day Nocturia 1-2 times per night Pads Used In 24 Hours 8 Urine Pad Type Maxi Pad Depends Pelvic Clock Pelvic Clock 12-3 Atrophy Pelvic Clock 3-6 Atrophy Pelvic Clock 6-9 Atrophy Pelvic Clock 9-12 Atrophy Prolapse Prolapse Comments vaginal vault prolapse Contraction Ability Voluntary Contraction Weak Voluntary Relaxation Weak Manual Muscle Testing Left 2 Manual Muscle Testing Right 2 Manual Muscle Testing Anterior 2 Manual Muscle Testing Posterior 2 Muscle Endurance (Seconds) 4 Number of Quick Contractions In 10 3 Seconds Comments Pelvic Floor Comments Tonie is able to facilitate all parts of her pelvic floor however she lacks endurance and the contraction is weak. PT-OP-K Range of Motion Start: 12/11/17 14:03 Freq: Status: Active Protocol: Document 12/11/17 14:04 AM[facility] (Rec: 12/11/17 14:05 AM[facility] [email or web address]) Hip Goniometric Range of Motion Hip Measured in Degrees Right Testing Position Supine External Rotation 20 Hip ROM Limitations Hip ROM Limitations Soft Tissue Tightness PT-OP-M Strength Start: 12/11/17 11:44 Freq: Status: Active Protocol: Document 12/11/17 14:02 AMH (Rec: 12/11/17 14:03 [facility] [email or web address]) Hip Strength Hip Manual Muscle Testing Left Abduction 4 Good External Rotation 4 Good Right Abduction 4 Good External Rotation 4 Good PT-OP-Q Treatments Start: 12/11/17 11:44 Freq: Status: Active Protocol: Document 01/22/18 10:54 AM[facility] (Rec: 01/22/18 11:01 [facility] [email or web address]) Therapeutic Exercises Supine Exercises 6 Supine Exercise Name pelvic floor quick contractions Reps/Minutes 2 second hold with 2 second rest x 10 reps 4 Supine Exercise Name supine horizontal abduction with theraband laying on 1/2 foam roll Reps/Minutes 2 sets of 10 reps Comments for posture 5 Supine Exercise Name supine foam roll stretch Reps/Minutes 1-2 minutes 2 Supine Exercise Name pelvic floor long holds 10 second hold time with 10 sec rest Reps/Minutes 3 sets of 10 reps 3 Supine Exercise Name Roll outs with theraband Resistance level 1 Reps/Minutes 3 sets of 10 reps 1 Supine Exercise Name adductor ball squeeze Reps/Minutes 2 sets of 10 reps Standing Exercises 4 Standing Exercise Name standing hip abduction and hip extension Reps/Minutes 2 sets of 10 reps 3 Standing Exercise Name function squats Reps/Minutes 2 sets of 10 reps 2 Standing Exercise Name standing rows Side bilateral Resistance level 1 theraband Reps/Minutes 2 sets of 10 reps 1 Standing Exercise Name standing bilateral shoulder extension Equipment Used level 1 theraband Reps/Minutes 2 sets of 10 reps PT-OP-T Assessment and Plan Start: 12/11/17 11:44 Freq: Status: Active Protocol: Document 01/22/18 10:54 AM[facility] (Rec: 01/22/18 11:01 AM[facility] [email or web address]) Physical Therapy Plan Frequency and Duration Frequency of Treatment 1x/Week Plan of Care Start Date 12/11/17 Plan of Care End Date 02/05/18 Therapeutic Interventions Therapeutic Interventions Home Exercise Program Neuromuscular Re-education Self-Care/Home Management Therapeutic Exercises Modalities Biofeedback Electric Stimulation Next Visit Focus/Plan Next Visit Plan review standing pelvic floor exercises next visit
--- NOTE | 2018-02-07 11:07 | PT.OPPN ---
Current Diagnoses Other female genital prolapse (01/22/18) Female genital prolapse, unspecified (01/22/18) Physical Therapy Progress Note PT-OP-A Visit Information Start: 12/11/17 11:44 Freq: Status: Active Protocol: Document 01/22/18 10:54 AM[facility] (Rec: 01/22/18 11:01 AM[facility] [email or web address]) Out-Patient Physical Therapy Visit Information Visit Information Visit Type Treatment Note Visit Start Time 09:00 Visit Stop Time 09:45 Total Visit Minutes 45 Visit Number 7 Number of FURNACE DOOR TENDER Visits 0 Evaluation Information Evaluation Date 12/11/17 PT-OP-B Current Condition Start: 12/11/17 11:44 Freq: Status: Active Protocol: Document 12/11/17 11:49 AMH (Rec: 12/11/17 11:58 AM[facility] [email or web address]) Current Condition History of Current Condition Onset Date symptoms have been progressing for 5 years Current Complaints urinary incontinence leaking 4 -6 times per day and during the night History of Current Condition 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 She has also been dealing with diarrhea and has had fecal soilage with this. Prior Treatments and Tests Tonie has started back using a estrace ring and has been using this for approximately 2 months Treatment Goals Patient/Caregiver Goals Tonie would like to begin working on a home exercise program for strengthening her pelvic floor to minimize her urinary incontinence. She reports she would like to avoid surgery if possilbe. Prior Functional Status Baseline Function- ADL's Independent Current Functional Impairments (Reported) Functional Limitations- Recreation/ Tonie is limited in walking for Hobbies exercise due to urinary leakage and foot pain. She would like to work up to a pool exercise progam for strenghening. Personal Factors Other Personal Factors That May Effect history of bilateral knee Therapy/Recovery replacement PT-OP-C Subjective Start: 12/11/17 11:44 Freq: Status: Active Protocol: Document 01/22/18 10:54 AMH (Rec: 01/22/18 11:01 [facility] [email or web address]) OP-PT Subjective Patient Comments Patient Comments Tracy has a MD visit with Dr Melba Copeland in 3 weeks Patient Reported Progress Same PT-OP-I Pelvic Floor Start: 12/11/17 11:44 Freq: Status: Active Protocol: Document 12/11/17 11:58 AMH (Rec: 12/11/17 12:02 AM[facility] [email or web address]) Pelvic Floor Assessment Urine Pelvic Floor Surgery Yes Other Urinary Symptoms strains to fully empty her bladder, history of UTI Leakage Size Medium Leakage Cause Cough Exercise Lifting Sneeze Urge Other Leakage Causes leakage also occurs at night Leaks Per Day 5 Voiding Frequency 10 times per day Nocturia 1-2 times per night Pads Used In 24 Hours 8 Urine Pad Type Maxi Pad Depends Pelvic Clock Pelvic Clock 12-3 Atrophy Pelvic Clock 3-6 Atrophy Pelvic Clock 6-9 Atrophy Pelvic Clock 9-12 Atrophy Prolapse Prolapse Comments vaginal vault prolapse Contraction Ability Voluntary Contraction Weak Voluntary Relaxation Weak Manual Muscle Testing Left 2 Manual Muscle Testing Right 2 Manual Muscle Testing Anterior 2 Manual Muscle Testing Posterior 2 Muscle Endurance (Seconds) 4 Number of Quick Contractions In 10 3 Seconds Comments Pelvic Floor Comments Tonie is able to facilitate all parts of her pelvic floor however she lacks endurance and the contraction is weak. PT-OP-K Range of Motion Start: 12/11/17 14:03 Freq: Status: Active Protocol: Document 12/11/17 14:04 AMH (Rec: 12/11/17 14:05 AM[facility] [email or web address]) Hip Goniometric Range of Motion Hip Measured in Degrees Right Testing Position Supine External Rotation 20 Hip ROM Limitations Hip ROM Limitations Soft Tissue Tightness PT-OP-M Strength Start: 12/11/17 11:44 Freq: Status: Active Protocol: Document 12/11/17 14:02 AMH (Rec: 12/11/17 14:03 AMH [email or web address]) Hip Strength Hip Manual Muscle Testing Left Abduction 4 Good External Rotation 4 Good Right Abduction 4 Good External Rotation 4 Good PT-OP-T Assessment and Plan Start: 12/11/17 11:44 Freq: Status: Active Protocol: Document 02/07/18 09:41 AMH (Rec: 02/07/18 09:53 AMH [email or web address]) Physical Therapy Assessment Goals Four Impairment Urinary leakage 4-5 times per day Halfway Goal (LTG) Decrease pad use per day to 1- 2 and frequency of leakage for day to 0-1 time per day. Tonie is able to remain dry at night LTG Duration 8 weeks Three Impairment poor postural habits contributing to downward pressure on the pelvic floor Halfway Goal (LTG) Tonie is educated on a home exercise program addressing posture Two Impairment poor endurance of pelvic floor contractions at 4-5 second hold time Short Term Goal (STG) Improve endurance of the pelvic floor to 10 second hold time in supine One Impairment Weakness of the pelvic floor at 2/5 MMT and vaginal vault prolapse Halfway Goal (LTG) improve strength of the pelvic floor to 4/5 for all parts of the levator ani to improve support of the vaginal wall LTG Duration 8 weeks Progress Towards Goals Progress Towards Goals Slow Progress due to Activity Tolerance Progress Comments Tonie's treatment has focused on improving pelvic floor strength as well as strength of her surrounding hip and pelvis musculature. I have also been addressing posture to decrease pressure down on the pelvic floor. Tonie has made some progress but it has been slow. She is trying to work on her exercises as she can at home. She is still noting leakage at night, although this is intermittent now and some times during the day. Assessment Summary Assessment Tonie has been tolerating her exercises well and has progressed her exercises from supine to include functional positions like sit-stand with pelvic floor facilitation and standing postural stabilization. Her endurance of the pelvic floor has improved to 10 second hold time in supine. EMG readings have improved and maximum contraction is 21 uv. Tonie may benefit from continued PT to carry her over to a independent program. Physical Therapy Plan Frequency and Duration Frequency of Treatment 1x/Week Plan of Care Start Date 02/07/18 Plan of Care End Date 04/04/18
--- NOTE | 2018-09-04 11:15 | PT.OPDS ---
Current Diagnoses Other female genital prolapse (01/22/18) Female genital prolapse, unspecified (01/22/18) Provider Visit Care Team Role Provider Type Ilana Alejandra DO Primary Care Provider Physician Specialty: Family Practice Address: [address] [place] [address], [id number] Email: [email or web address] Stacia Johnson MD Attending Provider Physician Specialty: PRACTICING DERMATOLOGIST Address: [address] [place] [address], [id number] Email: [email or web address] Visit Number Visit Number 7 Discharge Summary PT-OP-B Current Condition Start: 12/11/17 11:44 Freq: Status: Active Protocol: Document 12/11/17 11:49 AMH (Rec: 12/11/17 11:58 AMH [email or web address]) Current Condition History of Current Condition Onset Date symptoms have been progressing for 5 years Current Complaints urinary incontinence leaking 4 -6 times per day and during the night History of Current Condition 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 She has also been dealing with diarrhea and has had fecal soilage with this. Prior Treatments and Tests Tonie has started back using a estrace ring and has been using this for approximately 2 months Treatment Goals Patient/Caregiver Goals Tonie would like to begin working on a home exercise program for strengthening her pelvic floor to minimize her urinary incontinence. She reports she would like to avoid surgery if possilbe. Prior Functional Status Baseline Function- ADL's Independent Current Functional Impairments (Reported) Functional Limitations- Recreation/ Tonie is limited in walking for Hobbies exercise due to urinary leakage and foot pain. She would like to work up to a pool exercise progam for strenghening. Personal Factors Other Personal Factors That May Effect history of bilateral knee Therapy/Recovery replacement PT-OP-C Subjective Start: 12/11/17 11:44 Freq: Status: Active Protocol: Document 01/22/18 10:54 AMH (Rec: 01/22/18 11:01 AMH [email or web address]) OP-PT Subjective Patient Comments Patient Comments Tracy has a MD visit with Dr Melba Copeland in 3 weeks Patient Reported Progress Same PT-OP-I Pelvic Floor Start: 12/11/17 11:44 Freq: Status: Active Protocol: Document 12/11/17 11:58 AMH (Rec: 12/11/17 12:02 AMH [email or web address]) Pelvic Floor Assessment Urine Pelvic Floor Surgery Yes Other Urinary Symptoms strains to fully empty her bladder, history of UTI Leakage Size Medium Leakage Cause Cough Exercise Lifting Sneeze Urge Other Leakage Causes leakage also occurs at night Leaks Per Day 5 Voiding Frequency 10 times per day Nocturia 1-2 times per night Pads Used In 24 Hours 8 Urine Pad Type Maxi Pad Depends Pelvic Clock Pelvic Clock 12-3 Atrophy Pelvic Clock 3-6 Atrophy Pelvic Clock 6-9 Atrophy Pelvic Clock 9-12 Atrophy Prolapse Prolapse Comments vaginal vault prolapse Contraction Ability Voluntary Contraction Weak Voluntary Relaxation Weak Manual Muscle Testing Left 2 Manual Muscle Testing Right 2 Manual Muscle Testing Anterior 2 Manual Muscle Testing Posterior 2 Muscle Endurance (Seconds) 4 Number of Quick Contractions In 10 3 Seconds Comments Pelvic Floor Comments Tonie is able to facilitate all parts of her pelvic floor however she lacks endurance and the contraction is weak. PT-OP-K Range of Motion Start: 12/11/17 14:03 Freq: Status: Active Protocol: Document 12/11/17 14:04 AMH (Rec: 12/11/17 14:05 [facility] [email or web address]) Hip Goniometric Range of Motion Hip Measured in Degrees Right Testing Position Supine External Rotation 20 Hip ROM Limitations Hip ROM Limitations Soft Tissue Tightness PT-OP-M Strength Start: 12/11/17 11:44 Freq: Status: Active Protocol: Document 12/11/17 14:02 AMH (Rec: 12/11/17 14:03 AMH [email or web address]) Hip Strength Hip Manual Muscle Testing Left Abduction 4 Good External Rotation 4 Good Right Abduction 4 Good External Rotation 4 Good PT-OP-T Assessment and Plan Start: 12/11/17 11:44 Freq: Status: Active Protocol: Document 09/04/18 11:13 AMH (Rec: 09/04/18 11:15 AMH [email or web address]) Physical Therapy Assessment Assessment Summary Assessment Tonie has not been seen in physical therapy since February 2018. She did not wish to continue her PT at this time. She will be discharged to a independent home program at this time Physical Therapy Plan Discharge Physical Therapy Discharge Reasons No Longer Attending PT
== END 2018-09-04 14:34 ==
LOC: PHYS 09:00
PROVIDERS: PCP Family Medicine; Visit Provider Obstetrics & Gynecology
DX: N81.9 Female genital prolapse, unspecified (principal); N81.89 Other female genital prolapse
CPT/HCPCS: 97110; 97161

== ENCOUNTER → 2018-04-12 12:34 | Outpatient (CLI) | payer MEDICARE, SELFPAY ==
--- NOTE | 2018-04-12 | DI.MG.S_ITS ---
BILATERAL DIGITAL SCREENING MAMMOGRAM 3D/2D WITH CAD: 04/12/2018 CLINICAL: Routine screening. Comparison is made to exams dated: 03/30/2017 mammogram, 03/24/2016 mammogram, 01/04/2015 mammogram, 06/09/2013 mammogram, 04/12/2012 mammogram, and 01/10/2011 mammogram - [facility]. There are scattered fibroglandular elements in both breasts. Current study was also evaluated with a Computer Aided Detection (CAD) system. There is a new 0.5 cm oval mass in the right breast posterior depth superior region seen on the mediolateral oblique view only, not seen on any comparison imaging dating back to at least 2010. No other significant masses, calcifications, or other findings are seen in either breast. IMPRESSION: INCOMPLETE: NEEDS ADDITIONAL IMAGING EVALUATION The new 0.5 cm oval mass in the right breast is indeterminate. Additional views with possible ultrasound are recommended. This exam was interpreted at Station ID: [id number]. NOTE: For mammograms, a report in lay terms will be sent to the patient. Approximately 15% of breast malignancies will not be visualized mammographically. In the management of a palpable breast mass, a negative mammogram must not discourage biopsy of a clinically suspicious lesion. Electronically Signed By: Jaylen Neal M.D. ecl/:04/14/2018 20:56:03 copy to: Stacia Johnson letter sent: Additional Imaging Needed ACR BI-RADS Category 0: Incomplete [id number]
== END ==
PROVIDERS: PCP Family Medicine; Visit Provider Family Medicine
DX: Z12.31 Encounter for screening mammogram for malignant neoplasm of breast (principal)
CPT/HCPCS: 77063; 77067

== ENCOUNTER → 2018-04-25 08:46 | Outpatient (CLI) | payer MEDICARE, SELFPAY ==
--- NOTE | 2018-04-25 08:48 | DI.US.S_ITS ---
ULTRASOUND OF RIGHT BREAST: 04/25/2018 CLINICAL: Patient returns for additional imaging over a suspected mass in the right breast. Comparison is made to exams dated: 04/25/2018 mammogram, 04/12/2018 mammogram, and 03/30/2017 mammogram - [facility]. Color flow ultrasound of the right breast was performed on the areas of interest. Gil scale images of the real-time examination were reviewed. There is a benign 0.4 cm lymph node in the right breast at 9 o'clock posterior depth. This correlates with mammography findings. IMPRESSION: BENIGN There is no sonographic evidence of malignancy. The 0.4 cm lymph node in the right breast is benign. A 1 year screening mammogram is recommended. This exam was interpreted at Station ID: [id number]. Electronically Signed By: Shelley Vernon M.D. lk/:04/25/2018 13:56:00 copy to: Stacia Johnson letter sent: Normal Exam Ultrasound BI-RADS: 2 Benign
--- NOTE | 2018-04-25 08:48 | DI.MG.S_ITS ---
UNILATERAL RIGHT DIGITAL DIAGNOSTIC MAMMOGRAM 3D/2D WITH ADDITIONAL VIEWS: 04/25/2018 CLINICAL: Additional evaluation requested from prior study. Comparison is made to exams dated: 04/12/2018 mammogram, 03/30/2017 mammogram, and 03/24/2016 mammogram - [facility]. There are scattered fibroglandular elements in the right breast. There is a round mass in the right breast at 10 o'clock posterior depth. No other significant masses or calcifications are seen in the breast. IMPRESSION: INCOMPLETE: NEEDS ADDITIONAL IMAGING EVALUATION The round mass in the right breast likely represents a lymph node and is indeterminate. An ultrasound is recommended. This exam was interpreted at Station ID: [id number]. NOTE: For mammograms, a report in lay terms will be sent to the patient. Approximately 15% of breast malignancies will not be visualized mammographically. In the management of a palpable breast mass, a negative mammogram must not discourage biopsy of a clinically suspicious lesion. Electronically Signed By: Shelley cruz/kusum:04/25/2018 09:31:25 copy to: Stacia Johnson letter sent: Additional Imaging Needed ACR BI-RADS Category 0: Incomplete [id number]
== END ==
PROVIDERS: PCP Family Medicine; Visit Provider Family Medicine
DX: R92.8 Other abnormal and inconclusive findings on diagnostic imaging of breast (principal)
CPT/HCPCS: 76642; 77065; G0279

== ENCOUNTER → 2018-07-11 09:09 | Outpatient (CLI) | payer MEDICARE, SELFPAY ==
[2018-07-11 15:03] LABS: Clostridium Difficile Tox PCR Negative for C. diff
== END ==
PROVIDERS: PCP Family Medicine; Visit Provider Family Medicine
DX: R19.7 Diarrhea, unspecified (principal)
CPT/HCPCS: 87015; 87045; 87177; 87427; 87493; 87899

== ENCOUNTER → 2018-11-19 11:43 | Outpatient (CLI) | payer MEDICARE, SELFPAY ==
[2018-11-19 12:19] LABS: Appearance Urine UA SL CLOUDY; Bilirubin Urine UA NEGATIVE (NEGATIVE); Color Urine UA YELLOW; Glucose Urine UA NEGATIVE (Negative); Ketones Urine UA NEGATIVE (NEGATIVE); Leukocyte Esterase Urine UA 3+ (NEGATIVE); Nitrite Urine UA NEGATIVE (Negative); Occult Blood Urine UA 2+ (Negative); Protein Urine UA NEGATIVE (Negative); Urobilinogen Urine UA 0.2 E.U./dL (0.2)
[2018-11-19 13:50] LABS: RBC Urine 5-10/HPF (0-5/HPF); Squamous Epithelial Cell Urine 1-5 /HPF (0-5/HPF); WBC Urine 30-100/HPF (0-5/HPF)
[2018-11-19 13:51] LABS: Bacteria Urine Many (>30); Culture Indicated Urine Specimen Cultured
== END ==
PROVIDERS: PCP Family Medicine; Visit Provider Family Medicine
DX: R39.89 Other symptoms and signs involving the genitourinary system (principal)
CPT/HCPCS: 81001; 87077; 87086; 87186

== ENCOUNTER → 2019-02-18 11:36 | Outpatient (CLI) | payer MEDICARE, SELFPAY ==
[2019-02-18 12:15] LABS: Add Manual Diff / Slide Review NO; Basophils Absolute Auto 100 /uL (0-100); Basophils Percent Auto 1.2 % (0-2); Eosinophils Absolute Auto 100 /uL (0-450); Hematocrit 39.7 % (36-46); Hemoglobin 13.2 g/dL (12.0-16.0); Lymphocytes Absolute Auto 1200 /uL (1100-4500); Lymphocytes Percent Auto 21.8 % (25-40); Mean Corpuscular HGB Conc 33.1 % (30-36); Mean Corpuscular Hemoglobin 30.5 PG (26-34); Mean Corpuscular Volume 92.1 fL (80-100); Monocytes Absolute Auto 400 /uL (0-900); Monocytes Percent Auto 8.1 % (3-14); Neutrophils Absolute Auto 3700 /uL (1500-7000); Neutrophils Percent Auto 66.9 % (50-75); Platelet Count 304 X10^3/uL (150-400); Red Blood Cell Count 4.31 X10^6/uL (4.0-5.2); Red Cell Distribution Width 13.2 % (11.6-14.8); White Blood Cell Count 5.5 X10^3/uL (4.5-11.0)
[2019-02-18 13:41] LABS: Thyroid Stimulating Hormone 1.98 uIU/mL (0.47-4.68)
[2019-02-18 16:50] LABS: Alanine Aminotransferase 28 IU/L (9-52); Albumin 4.2 g/dL (3.5-5.0); Albumin Globulin Ratio 1.6 (1.0-2.8); Alkaline Phosphatase 65 U/L (38-126); Aspartate Aminotransferase 25 IU/L (14-36); BUN Creatinine Ratio 31.7 (6-22); Blood Urea Nitrogen 19 mg/dL (7-17); Calcium 9.7 mg/dL (8.4-10.2); Carbon Dioxide 27 mmol/L (22-32); Chloride 101 mmol/L (98-107); Estimated Glomerular Filt Rate > 60.0 mL/min (>60); Globulin 2.7 g/dL (1.7-4.1); Glucose 92 mg/dL (80-110); HEMOLYSIS < 15 (0-50); Potassium 4.4 mmol/L (3.4-5.1); Sodium 137 mmol/L (137-145); Total Protein 6.9 g/dL (6.3-8.2)
== END ==
PROVIDERS: PCP Family Medicine; Visit Provider Family Medicine
DX: Z13.29 Encounter for screening for other suspected endocrine disorder (principal); Z13.6 Encounter for screening for cardiovascular disorders; E78.5 Hyperlipidemia, unspecified
CPT/HCPCS: 36415; 80053; 84443; 85025

== ENCOUNTER → 2019-05-15 12:10 | Outpatient (CLI) | payer MEDICARE, SELFPAY ==
--- NOTE | 2019-05-15 12:11 | DI.MG.S_ITS ---
BILATERAL DIGITAL SCREENING MAMMOGRAM 3D/2D WITH CAD: 05/15/2019 CLINICAL: Routine screening. Comparison is made to exams dated: 04/12/2018 mammogram, 03/30/2017 mammogram, 03/24/2016 mammogram, 04/25/2018 mammogram, and 04/25/2018 [facility]. There are scattered fibroglandular elements in both breasts. Current study was also evaluated with a Computer Aided Detection (CAD) system. No significant masses, calcifications, or other findings are seen in either breast. There has been no significant interval change. IMPRESSION: NEGATIVE There is no mammographic evidence of malignancy. A 1 year screening mammogram is recommended. This exam was interpreted at Station ID: [id number]. NOTE: For mammograms, a report in lay terms will be sent to the patient. Approximately 15% of breast malignancies will not be visualized mammographically. In the management of a palpable breast mass, a negative mammogram must not discourage biopsy of a clinically suspicious lesion. Electronically Signed By: Jaylen strauss/kusum:05/16/2019 15:04:53 copy to: Stacia Johnson letter sent: Normal Exam ACR BI-RADS Category 1: Negative [id number]
== END ==
PROVIDERS: PCP Family Medicine; Visit Provider Family Medicine
DX: Z12.31 Encounter for screening mammogram for malignant neoplasm of breast (principal); M85.852 Other specified disorders of bone density and structure, left thigh; Z78.0 Asymptomatic menopausal state; Z90.722 Acquired absence of ovaries, bilateral; Z82.62 Family history of osteoporosis
CPT/HCPCS: 77063; 77067; 77080

== ENCOUNTER → 2019-09-19 07:50 | Outpatient (CLI) | payer MEDICARE, SELFPAY ==
[2019-09-19 08:52] LABS: Blood Urea Nitrogen 23 mg/dL (7-17); Calcium 9.3 mg/dL (8.4-10.2); Carbon Dioxide 27 mmol/L (22-32); Chloride 102 mmol/L (98-107); Estimated Glomerular Filt Rate > 60.0 mL/min (>60); Glucose 96 mg/dL (80-110); HEMOLYSIS < 15 (0-50); Potassium 4.3 mmol/L (3.4-5.1); Sodium 135 mmol/L (137-145)
[2019-09-19 09:16] LABS: Vitamin D 25 Hydroxy (D3) 49.8 ng/mL (30.0-100.0)
== END ==
PROVIDERS: PCP Family Medicine; Referring Provider Family Medicine; Visit Provider Family Medicine
DX: M81.0 Age-related osteoporosis without current pathological fracture (principal); M85.80 Other specified disorders of bone density and structure, unspecified site
CPT/HCPCS: 36415; 80048; 82306

== ENCOUNTER 2019-09-24 13:00 | Outpatient (RCR) | payer MEDICARE, SELFPAY ==
--- NOTE | 2019-07-14 16:00 | PT.OIE ---
Current Diagnoses Other specified disorders of muscle (07/14/19) Urge incontinence (07/14/19) Unspecified urinary incontinence (07/14/19) Past Medical History (Last Reviewed 09/05/18 @ 10:26 by Trang Goodson) Arthritis of foot (Chronic ~1999) Cataracts, bilateral (Resolved) Cervical spine disease (Chronic ~2013) Chickenpox (Resolved) Dry skin (Chronic) Hearing loss (Chronic) Hemorrhoids (Chronic ~1959) History of wrist fracture (Resolved ~1949) Measles (Resolved) Mumps (Resolved) Murmur (Chronic ~2010) Osteopenia (Chronic ~1999) Shoulder pain (Resolved) Urinary incontinence, urge (Chronic ~1999) Past Surgical History (Last Reviewed 09/05/18 @ 10:26 by Trang Goodson) Anesthesia complication (Inactive) History of bladder suspension procedure (Chronic ~2001) History of cataract removal with insertion of prosthetic lens History of knee replacement (~2010) History of knee replacement (~2011) History of tonsillectomy (~1949) History of vein stripping (Resolved ~1965) Pilonidal cyst (Resolved ~1999) Status post appendectomy (~1949) Status post hysterectomy with oophorectomy (~1979) Surgical procedure planned (Resolved ~1964) Visit Care Team Role Provider Type Ilana Alejandra DO Attending Provider Physician Primary Care Provider Specialty: [facility] Address: [address] [place] [address], [address], [facility] Email: [email or web address] Physical Therapy Initial Evaluation PT-OP-A Visit Information Start: 07/14/19 07:41 Freq: Status: Active Protocol: Document 07/14/19 14:30 AMB (Rec: 07/20/19 14:03 AMB [email or web address]) Out-Patient Physical Therapy Visit Information Visit Information Visit Type Initial Evaluation Visit Start Time 14:30 Visit Stop Time 15:15 Total Visit Minutes 45 Visit Number 1 PT-OP-B Current Condition Start: 07/14/19 07:41 Freq: Status: Active Protocol: Document 07/14/19 14:30 AMB (Rec: 07/20/19 14:03 AMB [email or web address]) Current Condition History of Current Condition Onset Date 5 years Current Complaints urinary urgency History of Current Condition Tonie reports 5 vaginal births all with episiotomies. She had a bladder sling and hyserectomy in 1985. She has had at least 2 episodes of prior pelvic floor physical therapy. She returns to PT after seeing Dr. Copeland in [place]. She reports she does have intermittent diarrhea and can have some fecal soiling, but mostly she is concerned with her urinary incontinence. She describes 2 -3 large leaks per week, with more smaller ones. She describes a lot of urgency with triggers including running water, collier in th edoor , being close to a bathroom. She does not describe leaking with cough or sneeze. Personal Factors Other Personal Factors That May Effect Previous bladder surgery and Therapy/Recovery pelvic floor physical therapy, osteopenia PT-OP-C Subjective Start: 07/14/19 07:41 Freq: Status: Active Protocol: Document 07/14/19 14:30 AMB (Rec: 07/20/19 14:03 AMB [email or web address]) Patient Questionnaires Pelvic Pain and Urgency/Frequency Patient Symptom Scale Pelvic Pain Score 8 PT-OP-I Pelvic Floor Start: 07/14/19 07:41 Freq: Status: Active Protocol: Document 07/14/19 14:30 AMB (Rec: 07/20/19 14:03 AMB [email or web address]) Pelvic Floor Assessment Urine Urinary Symptoms Urge Sensation,Dribbling After Urination Leakage Size Large Leakage Cause Urge Leaks Per Day daily Nocturia 1-2 Pads Used In 24 Hours 4 Urine Pad Type Depends Bowel Bowel Symptoms Fecal Leakage Other Bowel Symptoms leaking when has diarrhea Pelvic Clock Pelvic Clock 12-3 Atrophy Pelvic Clock 3-6 Atrophy Pelvic Clock 6-9 Atrophy Pelvic Clock 9-12 Atrophy Prolapse Prolapse Comments vaginal vault prolapse Perineal Descent Resting Absent Bearing Present Contraction Ability Voluntary Contraction Weak Voluntary Relaxation Moderate Manual Muscle Testing Left 2 Manual Muscle Testing Right 2 Manual Muscle Testing Anterior 2 Manual Muscle Testing Posterior 2 Muscle Endurance (Seconds) 3 Number of Quick Contractions In 10 3 Seconds Comments Pelvic Floor Comments Tonie is able to contract her pelvic floor, but tends to overuse her abdominals PT-OP-T Assessment and Plan Start: 07/14/19 07:41 Freq: Status: Active Protocol: Document 07/14/19 14:30 AMB (Rec: 07/20/19 14:03 AMB [email or web address]) Physical Therapy Assessment Rehab Potential Rehabilitation Potential Fair Evaluation Complexity Number of Personal Factors/Comorbidities 1-2 Number of Body Systems Impaired 1-2 Clinical Presentation at Evaluation Stable Impairments Impairments Functional Activities,Strength Goals Four Impairment Urinary leakage 4-5 times per day Color Card Maker Goal (LTG) Decrease pad use per day to 1- 2 and frequency of leakage for day to 0-1 time per day. LTG Duration 8 weeks Three Impairment Urge incontinence Snf Goal (LTG) Tonie will use urge reduction techniques to reduce her leaks with triggers (running water, seeing toilet). 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 Given her history she likely has stress incontinence as well, but her large leaks in relationship to triggers of running water or seeing a toilet will definitely benefit from urge reduction techniques. She does have a weak pelvic floor, and would benefit from another round of strengthening. Physical Therapy Plan Frequency and Duration Frequency of Treatment 1x/Week Duration of Treatment 8 weeks Plan of Care Start Date 07/14/19 Plan of Care End Date 09/08/19 Therapeutic Interventions Therapeutic Interventions Home Exercise Program,Manual Therapy,Neuromuscular Re- education,Self-Care/Home Management,Therapeutic Activities,Therapeutic Exercises Modalities Biofeedback,Electric Stimulation Next Visit Focus/Plan Next Note Type Treatment Note Next Visit Plan begin with urge reduction techniques, can try NMES vs sEMG for assistance with strengthening
--- NOTE | 2019-08-15 16:13 | PT.OTN ---
Current Diagnoses Other specified disorders of muscle (08/15/19) Urge incontinence (08/15/19) Physical Therapy Treatment Note PT-OP-A Visit Information Start: 07/14/19 07:41 Freq: Status: Active Protocol: Document 08/15/19 10:30 AMB (Rec: 08/15/19 16:13 AMB [email or web address]) Out-Patient Physical Therapy Visit Information Visit Information Visit Type Treatment Note Visit Start Time 10:30 Visit Stop Time 11:15 Total Visit Minutes 45 Visit Number 2 PT-OP-B Current Condition Start: 07/14/19 07:41 Freq: Status: Active Protocol: Document 07/14/19 14:30 AMB (Rec: 07/20/19 14:03 AMB [email or web address]) Current Condition History of Current Condition Onset Date 5 years Current Complaints urinary urgency History of Current Condition Tonie reports 5 vaginal births all with episiotomies. She had a bladder sling and hyserectomy in 1985. She has had at least 2 episodes of prior pelvic floor physical therapy. She returns to PT after seeing Dr. Copeland in [place]. She reports she does have intermittent diarrhea and can have some fecal soiling, but mostly she is concerned with her urinary incontinence. She describes 2 -3 large leaks per week, with more smaller ones. She describes a lot of urgency with triggers including running water, collier in th edoor , being close to a bathroom. She does not describe leaking with cough or sneeze. Personal Factors Other Personal Factors That May Effect Previous bladder surgery and Therapy/Recovery pelvic floor physical therapy, osteopenia PT-OP-C Subjective Start: 07/14/19 07:41 Freq: Status: Active Protocol: Document 08/15/19 10:30 AMB (Rec: 08/15/19 16:13 AMB [email or web address]) OP-PT Subjective Patient Comments Patient Comments Tonie states she has not been doing her exercises much. She has been busy over the holidays with her grandchildren. She has been trying to do her exercises when she has a trigger but not many other exercises. PT-OP-I Pelvic Floor Start: 07/14/19 07:41 Freq: Status: Active Protocol: Document 07/14/19 14:30 AMB (Rec: 07/20/19 14:03 AMB [email or web address]) Pelvic Floor Assessment Urine Urinary Symptoms Urge Sensation,Dribbling After Urination Leakage Size Large Leakage Cause Urge Leaks Per Day daily Nocturia 1-2 Pads Used In 24 Hours 4 Urine Pad Type Depends Bowel Bowel Symptoms Fecal Leakage Other Bowel Symptoms leaking when has diarrhea Pelvic Clock Pelvic Clock 12-3 Atrophy Pelvic Clock 3-6 Atrophy Pelvic Clock 6-9 Atrophy Pelvic Clock 9-12 Atrophy Prolapse Prolapse Comments vaginal vault prolapse Perineal Descent Resting Absent Bearing Present Contraction Ability Voluntary Contraction Weak Voluntary Relaxation Moderate Manual Muscle Testing Left 2 Manual Muscle Testing Right 2 Manual Muscle Testing Anterior 2 Manual Muscle Testing Posterior 2 Muscle Endurance (Seconds) 3 Number of Quick Contractions In 10 3 Seconds Comments Pelvic Floor Comments Tonie is able to contract her pelvic floor, but tends to overuse her abdominals PT-OP-Q Treatments Start: 07/14/19 07:41 Freq: Status: Active Protocol: Document 08/15/19 10:30 AMB (Rec: 08/15/19 16:13 AMB [email or web address]) Therapeutic Exercises Sitting Exercises 1 Sitting Exercise Name roll in roll out Resistance #3 band Comments vc for PF contract before and after Neuro Re-Education Treatment Other Activities 1 Details sEMG Reps/Duration hooklying Comments quick flicks and long hodls with vc to avoid overuse of abdominals or gluteals. PT-OP-T Assessment and Plan Start: 07/14/19 07:41 Freq: Status: Active Protocol: Document 08/15/19 10:30 AMB (Rec: 08/15/19 16:13 AMB [email or web address]) Physical Therapy Assessment Assessment Summary Assessment Tonie had baseline 2 and max 6- 7 on sEMG today with tendency to hold her breath and compensate with abdominals, continued to enforce urge reduction with triggers. Physical Therapy Plan Next Visit Focus/Plan Next Note Type Treatment Note Next Visit Plan begin with urge reduction techniques, can try NMES vs sEMG for assistance with strengthening
--- NOTE | 2019-09-10 11:45 | PT.OTN ---
Current Diagnoses Other specified disorders of muscle (09/10/19) Urge incontinence (09/10/19) Physical Therapy Treatment Note PT-OP-A Visit Information Start: 07/14/19 07:41 Freq: Status: Active Protocol: Document 09/10/19 09:45 AMB (Rec: 09/10/19 11:39 AMB [id number]) Out-Patient Physical Therapy Visit Information Visit Information Visit Type Treatment Note Visit Start Time 09:45 Visit Stop Time 10:30 Total Visit Minutes 45 Visit Number 3 PT-OP-B Current Condition Start: 07/14/19 07:41 Freq: Status: Active Protocol: Document 07/14/19 14:30 AMB (Rec: 07/20/19 14:03 AMB [email or web address]) Current Condition History of Current Condition Onset Date 5 years Current Complaints urinary urgency History of Current Condition Tonie reports 5 vaginal births all with episiotomies. She had a bladder sling and hyserectomy in 1985. She has had at least 2 episodes of prior pelvic floor physical therapy. She returns to PT after seeing Dr. Copeland in [place]. She reports she does have intermittent diarrhea and can have some fecal soiling, but mostly she is concerned with her urinary incontinence. She describes 2 -3 large leaks per week, with more smaller ones. She describes a lot of urgency with triggers including running water, collier in th edoor , being close to a bathroom. She does not describe leaking with cough or sneeze. Personal Factors Other Personal Factors That May Effect Previous bladder surgery and Therapy/Recovery pelvic floor physical therapy, osteopenia PT-OP-C Subjective Start: 07/14/19 07:41 Freq: Status: Active Protocol: Document 09/10/19 09:45 AMB (Rec: 09/10/19 11:39 AMB [id number]) OP-PT Subjective Patient Comments Patient Comments Tonie states she thinks her sx are a little better, but still having large leaks, urgency, frequency, worst when she is at home. She does tend to fluid restrict when out in the community. PT-OP-I Pelvic Floor Start: 07/14/19 07:41 Freq: Status: Active Protocol: Document 07/14/19 14:30 AMB (Rec: 07/20/19 14:03 AMB [email or web address]) Pelvic Floor Assessment Urine Urinary Symptoms Urge Sensation,Dribbling After Urination Leakage Size Large Leakage Cause Urge Leaks Per Day daily Nocturia 1-2 Pads Used In 24 Hours 4 Urine Pad Type Depends Bowel Bowel Symptoms Fecal Leakage Other Bowel Symptoms leaking when has diarrhea Pelvic Clock Pelvic Clock 12-3 Atrophy Pelvic Clock 3-6 Atrophy Pelvic Clock 6-9 Atrophy Pelvic Clock 9-12 Atrophy Prolapse Prolapse Comments vaginal vault prolapse Perineal Descent Resting Absent Bearing Present Contraction Ability Voluntary Contraction Weak Voluntary Relaxation Moderate Manual Muscle Testing Left 2 Manual Muscle Testing Right 2 Manual Muscle Testing Anterior 2 Manual Muscle Testing Posterior 2 Muscle Endurance (Seconds) 3 Number of Quick Contractions In 10 3 Seconds Comments Pelvic Floor Comments Tonie is able to contract her pelvic floor, but tends to overuse her abdominals PT-OP-Q Treatments Start: 07/14/19 07:41 Freq: Status: Active Protocol: Document 09/10/19 09:45 AMB (Rec: 09/10/19 11:39 AMB [id number]) Therapeutic Exercises Standing Exercises 1 Standing Exercise Name 10 second holds with NMES Reps/Minutes 10 min Neuro Re-Education Treatment Other Activities 1 Details sEMG Reps/Duration hooklying Comments quick flicks and long hodls with vc to avoid overuse of abdominals or gluteals. PT-OP-T Assessment and Plan Start: 07/14/19 07:41 Freq: Status: Active Protocol: Document 09/10/19 09:45 AMB (Rec: 09/10/19 11:39 AMB [id number]) Physical Therapy Assessment Assessment Summary Assessment Tonie had baseline of 1, max with quick flicks of 14, max with 10 second holds with 8.5. Pt continues to be challenged by urge reduction technique. Physical Therapy Plan Next Visit Focus/Plan Next Note Type Treatment Note Next Visit Plan begin with urge reduction techniques, can try NMES vs sEMG for assistance with strengthening
--- NOTE | 2019-09-10 16:17 | PT.OPPOC ---
Physical, Occupational & Speech Therapy At [facility] Current Diagnoses Other specified disorders of muscle (09/10/19) Urge incontinence (09/10/19) Visit Care Team Role Provider Type Ilana Alejandra DO Attending Provider Physician Primary Care Provider Specialty: [facility] Practice Address: [address] [place] [address], [address], [facility] Email: [email or web address] Plan Of Care PT-OP-T Assessment and Plan Start: 07/14/19 07:41 Freq: Status: Active Protocol: Document 09/10/19 09:45 AMB (Rec: 09/10/19 11:39 AMB [id number]) Physical Therapy Assessment Goals Four Impairment Urinary leakage 4-5 times per day Refrigeration Engineering Teacher Goal (LTG) Decrease pad use per day to 1- 2 and frequency of leakage for day to 0-1 time per day. 2/5 : not yet met, pt has only had 3 visits LTG Duration 8 weeks Three Impairment Urge incontinence Refrigeration Engineering Teacher Goal (LTG) Tonie will use urge reduction techniques to reduce her leaks with triggers (running water, seeing toilet). 2/5: partially met- pt tries to do this every day but is challenged by it LTG Duration 8 weeks Two Impairment poor endurance of pelvic floor contractions at 4-5 second hold time Short Term Goal (STG) Improve endurance of the pelvic floor to 10 second hold time in supine 2/5 not met STG Duration 4 weeks One Impairment Weakness of the pelvic floor at 2/5 MMT and vaginal vault prolapse Refrigeration Engineering Teacher Goal (LTG) improve strength of the pelvic floor to 4/5 for all parts of the levator ani to improve support of the vaginal wall 2 /5: not met LTG Duration 8 weeks Assessment Summary Assessment Tonie has been seen for three visits, due to her traveling and some inclement weather. She has had a challenging time using urge reduction techniques to decrease her leaking, and feels that she has had some small improvements so far, but continues to have large leaks and need to use multiple pads per day. With sEMG today, Tonie had baseline of 1, max with quick flicks of 14, max with 10 second holds with 8.5, which is an improvement. Pt continues to be challenged by urge reduction technique and will benefit from continued treatment, as she has not been seen very frequently over the last two months. Physical Therapy Plan Frequency and Duration Frequency of Treatment 1x/Week Duration of Treatment 8 weeks Plan of Care Start Date 09/10/19 Plan of Care End Date 11/05/19 Therapeutic Interventions Therapeutic Interventions Home Exercise Program,Manual Therapy,Neuromuscular Re- education,Self-Care/Home Management,Therapeutic Activities,Therapeutic Exercises Modalities Biofeedback,Electric Stimulation Next Visit Focus/Plan Next Note Type Treatment Note Next Visit Plan begin with urge reduction techniques, can try NMES vs sEMG for assistance with strengthening Plan of Care Dates Plan of Care Start Date 09/10/19 Plan of Care End Date 11/05/19 Electronically Signed by: Jacqueline Pulido, PT 09/10/19 9713 Please Sign and Return: I have reviewed this Plan of Care and certify that the skilled therapy services above are required to meet the patient?s needs. Physician Signature Date Printed Name and Credentials Clinical Instructor Signature Printed Name and Credentials
--- NOTE | 2019-09-24 15:43 | PT.OTN ---
Current Diagnoses Other specified disorders of muscle (09/24/19) Urge incontinence (09/24/19) Physical Therapy Treatment Note PT-OP-A Visit Information Start: 07/14/19 07:41 Freq: Status: Active Protocol: Document 09/24/19 13:00 AMB (Rec: 09/24/19 13:42 AMB [id number]) Out-Patient Physical Therapy Visit Information Visit Information Visit Type Treatment Note Visit Start Time 09:45 Visit Stop Time 10:30 Total Visit Minutes 45 Visit Number 4 PT-OP-B Current Condition Start: 07/14/19 07:41 Freq: Status: Active Protocol: Document 07/14/19 14:30 AMB (Rec: 07/20/19 14:03 AMB [email or web address]) Current Condition History of Current Condition Onset Date 5 years Current Complaints urinary urgency History of Current Condition Tonie reports 5 vaginal births all with episiotomies. She had a bladder sling and hyserectomy in 1985. She has had at least 2 episodes of prior pelvic floor physical therapy. She returns to PT after seeing Dr. Copeland in [place]. She reports she does have intermittent diarrhea and can have some fecal soiling, but mostly she is concerned with her urinary incontinence. She describes 2 -3 large leaks per week, with more smaller ones. She describes a lot of urgency with triggers including running water, collier in th edoor , being close to a bathroom. She does not describe leaking with cough or sneeze. Personal Factors Other Personal Factors That May Effect Previous bladder surgery and Therapy/Recovery pelvic floor physical therapy, osteopenia PT-OP-C Subjective Start: 07/14/19 07:41 Freq: Status: Active Protocol: Document 09/24/19 13:00 AMB (Rec: 09/24/19 13:42 AMB [id number]) OP-PT Subjective Patient Comments Patient Comments Pt states she has been doing HEP, although not multiple times per day. PT-OP-I Pelvic Floor Start: 07/14/19 07:41 Freq: Status: Active Protocol: Document 07/14/19 14:30 AMB (Rec: 07/20/19 14:03 AMB [email or web address]) Pelvic Floor Assessment Urine Urinary Symptoms Urge Sensation,Dribbling After Urination Leakage Size Large Leakage Cause Urge Leaks Per Day daily Nocturia 1-2 Pads Used In 24 Hours 4 Urine Pad Type Depends Bowel Bowel Symptoms Fecal Leakage Other Bowel Symptoms leaking when has diarrhea Pelvic Clock Pelvic Clock 12-3 Atrophy Pelvic Clock 3-6 Atrophy Pelvic Clock 6-9 Atrophy Pelvic Clock 9-12 Atrophy Prolapse Prolapse Comments vaginal vault prolapse Perineal Descent Resting Absent Bearing Present Contraction Ability Voluntary Contraction Weak Voluntary Relaxation Moderate Manual Muscle Testing Left 2 Manual Muscle Testing Right 2 Manual Muscle Testing Anterior 2 Manual Muscle Testing Posterior 2 Muscle Endurance (Seconds) 3 Number of Quick Contractions In 10 3 Seconds Comments Pelvic Floor Comments Tonie is able to contract her pelvic floor, but tends to overuse her abdominals PT-OP-Q Treatments Start: 07/14/19 07:41 Freq: Status: Active Protocol: Document 09/24/19 13:00 AMB (Rec: 09/24/19 15:39 AMB [email or web address]) Therapeutic Exercises Sitting Exercises 1 Sitting Exercise Name roll in roll out Resistance #4 band Comments vc for PF contract before and after Neuro Re-Education Treatment Other Activities 1 Details sEMG Reps/Duration hooklying Comments quick flicks and long holds with vc to avoid overuse of abdominals or gluteals. Pt encouraged to use tactile feedback as well to promote isolation of pelvic floor. PT-OP-T Assessment and Plan Start: 07/14/19 07:41 Freq: Status: Active Protocol: Document 09/24/19 13:00 AMB (Rec: 09/24/19 13:42 AMB [id number]) Physical Therapy Assessment Assessment Summary Assessment Tonie continues to struggle with isolation of pelvic floor . She is doing better wtih breathing, but isolation continues to be challenging. Continues to have urge and leaking multiple times per day . Max 10 8.7 today. Physical Therapy Plan Frequency and Duration Frequency of Treatment 1x/Week Duration of Treatment 8 weeks Plan of Care Start Date 09/10/19 Plan of Care End Date 11/05/19 Next Visit Focus/Plan Next Note Type Treatment Note Next Visit Plan Look at bladder diary.
--- NOTE | 2019-10-08 16:09 | PT.OPDS ---
Current Diagnoses Other specified disorders of muscle (09/24/19) Urge incontinence (09/24/19) Visit Care Team Role Provider Type Ilana Alejandra DO Attending Provider Physician Primary Care Provider Specialty: Family Practice Address: [address] [place] [address], [address], [address] Email: [email or web address] Visit Number Visit Number 4 Discharge Summary PT-OP-B Current Condition Start: 07/14/19 07:41 Freq: Status: Active Protocol: Document 07/14/19 14:30 AMB (Rec: 07/20/19 14:03 AMB [id number]) Current Condition History of Current Condition Onset Date 5 years Current Complaints urinary urgency History of Current Condition Tonie reports 5 vaginal births all with episiotomies. She had a bladder sling and hyserectomy in 1985. She has had at least 2 episodes of prior pelvic floor physical therapy. She returns to PT after seeing Dr. Copeland in [place]. She reports she does have intermittent diarrhea and can have some fecal soiling, but mostly she is concerned with her urinary incontinence. She describes 2 -3 large leaks per week, with more smaller ones. She describes a lot of urgency with triggers including running water, collier in th edoor , being close to a bathroom. She does not describe leaking with cough or sneeze. Personal Factors Other Personal Factors That May Effect Previous bladder surgery and Therapy/Recovery pelvic floor physical therapy, osteopenia PT-OP-C Subjective Start: 07/14/19 07:41 Freq: Status: Active Protocol: Document 09/24/19 13:00 AMB (Rec: 09/24/19 13:42 AMB [id number]) OP-PT Subjective Patient Comments Patient Comments Pt states she has been doing HEP, although not multiple times per day. PT-OP-I Pelvic Floor Start: 07/14/19 07:41 Freq: Status: Active Protocol: Document 07/14/19 14:30 AMB (Rec: 07/20/19 14:03 AMB [email or web address]) Pelvic Floor Assessment Urine Urinary Symptoms Urge Sensation,Dribbling After Urination Leakage Size Large Leakage Cause Urge Leaks Per Day daily Nocturia 1-2 Pads Used In 24 Hours 4 Urine Pad Type Depends Bowel Bowel Symptoms Fecal Leakage Other Bowel Symptoms leaking when has diarrhea Pelvic Clock Pelvic Clock 12-3 Atrophy Pelvic Clock 3-6 Atrophy Pelvic Clock 6-9 Atrophy Pelvic Clock 9-12 Atrophy Prolapse Prolapse Comments vaginal vault prolapse Perineal Descent Resting Absent Bearing Present Contraction Ability Voluntary Contraction Weak Voluntary Relaxation Moderate Manual Muscle Testing Left 2 Manual Muscle Testing Right 2 Manual Muscle Testing Anterior 2 Manual Muscle Testing Posterior 2 Muscle Endurance (Seconds) 3 Number of Quick Contractions In 10 3 Seconds Comments Pelvic Floor Comments Tonie is able to contract her pelvic floor, but tends to overuse her abdominals PT-OP-T Assessment and Plan Start: 07/14/19 07:41 Freq: Status: Active Protocol: Document 10/08/19 16:04 AMB (Rec: 10/08/19 16:09 AMB [email or web address]) Physical Therapy Assessment Assessment Summary Assessment Pt called in to state that her is too sick for her to continue with physical therapy at this time. At the time of her last visit she continued to have urge and stress incontinence, with continued pelvic floor weakness. Physical Therapy Plan Discharge Physical Therapy Discharge Reasons Patient Request
== END 2019-10-10 08:18 ==
LOC: PHYS 13:00
PROVIDERS: PCP Family Medicine; Visit Provider Family Medicine
DX: M62.89 Other specified disorders of muscle (principal); N39.41 Urge incontinence
CPT/HCPCS: 97110; 97112; 97161

== ENCOUNTER → 2020-10-13 09:13 | Outpatient (CLI) | payer MEDICARE, SELFPAY ==
[2020-10-13] MEDS: COVID-19 VACC, Ad26(JANSSEN)/PF 0.5 ML IM (09:28)
== END ==
PROVIDERS: PCP Family Medicine; Visit Provider Internal Medicine
DX: Z23 Encounter for immunization (principal)
CPT/HCPCS: 0031A; 91303

== ENCOUNTER 2020-11-14 16:02 | Emergency (ER) | payer MEDICARE, SELFPAY ==
[2020-11-14 17:13] VITALS: BP 126/62; PULSE 63; RESP 15; TEMP 36.6; O2SAT 98; BMI 25.7
--- NOTE | 2020-11-14 17:17 | ED.LOWEXIN ---
HPI - Extremity Injury (Lower) General Chief Complaint: Wound/Laceration Stated Complaint: left leg cut Time Seen by Provider: 11/14/20 16:16 Source: patient and family Mode of arrival: Ambulatory Limitations: no limitations History of Present Illness HPI Narrative: 80-year-old female nonsmoker with noncontributory medical history presents with her in the chief complaint of a deep, heavily bleeding laceration to her left anterior raza. This injury was suffered just prior to arrival when she accidentally walked into a storage container with a sharp leading edge in her kitchen. She states her tetanus will need to be updated. She has pain but denies other injury. She is not dizzy nor weak or lightheaded. She is otherwise well and free of complaint MD complaint: leg injury Onset (ago): minute(s) Type of Injury: laceration Place: home Severity: mild Relieving factors: nothing Exacerbating factors: nothing Context: direct blow Other symptoms: none Treatments prior to arrival: bandage Related Data Home Medications Medication Instructions Recorded Confirmed ASCORBIC ACID (#VITAMIN C) 500 mg PO Q DAY #0 05/17/11 09/03/19 [CALMS FORTE] 0.5 tab PO PRN PRN #0 05/17/11 09/03/19 cyclosporine [Restasis] 0.4 ml OP Q12HP #0 05/17/11 09/03/19 metoprolol succinate 25 mg 25 mg PO DAILY 01/28/18 09/03/19 tablet,extended release 24 hr vitamins A,C,R-bsnw-amhpwl 14,320 cap PO BID cap 01/28/18 09/03/19 unit-226 mg-200 unit capsule Previous Rx's Medication Instructions Recorded estradiol 1 vag ring VAGINAL [id number] #1 ea 10/04/20 Allergies Allergy/AdvReac Type Severity Reaction Status Date / Time Sulfa (Sulfonamide Allergy Mild ITCHY, Verified 09/03/19 13:52 Antibiotics) IRRITABLE, [SULFA (SULFONAMIDE MOOD CHANGE ANTIBIOTICS)] Review of Systems Constitutional Constitutional: Denies chills, Denies fatigue, Denies fever(s), Denies frequent falls, Denies lethargy and Denies weakness Eyes Eyes: Denies change in vision, Denies eye discharge, Denies irritation and Denies loss of vision ENT Ears, Nose, Mouth, and Throat: Denies change in voice, Denies dizziness, Denies neck pain, Denies sore throat and Denies throat swelling Cardiovascular Cardiovascular: Denies chest pain, Denies irregular heart rhythm, Denies lightheadedness, Denies palpitations, Denies dyspnea, Denies dyspnea on exertion and Denies orthopnea Respiratory Respiratory: Denies cough, Denies dyspnea, Denies dyspnea on exertion and Denies wheezing Gastrointestinal Gastrointestinal: Denies abdominal pain, Denies change in bowel habits, Denies diarrhea, Denies nausea and Denies vomiting Musculoskeletal Musculoskeletal: Denies neck pain and Denies numbness Integumentary/Breasts Skin/Breast: Denies pruritus, Denies erythema, Denies rash and Reports wounds Neurologic Neurologic: Denies behavioral changes, Denies confusion, Denies dizziness, Denies frequent falls, Denies loss of vision, Denies numbness and Denies weakness Psychiatric Psychiatric: Denies anxiety, Denies behavioral changes, Denies confusion, Denies depression, Denies homicidal ideation and Denies suicidal ideation Endocrine Endocrine: Denies fatigue, Denies flushing and Denies palpitations Hematologic/Lymphatic Hematologic/Lymphatic: Denies easy bruising Allergic/Immunologic Allergic/Immunologic: Denies urticaria, Denies throat swelling and Denies wheezing Patient History Medical History Arthritis of foot (~1999) Cataracts, bilateral Cervical spine disease (~2013) Chickenpox Dry skin Hearing loss Hemorrhoids (~1959) History of wrist fracture (~1949) Measles Mumps Murmur (~2010) Osteopenia (~1999) Shoulder pain Urinary incontinence, urge (~1999) Surgical History Anesthesia complication History of bladder suspension procedure (~2001) History of cataract removal with insertion of prosthetic lens History of knee replacement (~2010) History of knee replacement (~2011) History of tonsillectomy (~1949) History of vein stripping (~1965) Pilonidal cyst (~1999) Status post appendectomy (~1949) Status post hysterectomy with oophorectomy (~1979) Surgical procedure planned (~1964) Family History Father No problems noted. Mother No problems noted. Grandfather No problems noted. Social History Smoking Status: Never smoker alcohol intake: never substance use type: does not use Smoking Status: Never smoker Exam Narrative Exam Narrative: GEN: AOx3 and in mild distress EYES: Pupils are equal, round, and reactive to light and accommodation. Extraoccular muscles are intact bilaterally. There is no subconjunctival hemorrhage or exudate. CHEST: Lungs are clear to auscultation bilaterally and free of wheezes, rales, or rhonchi. Heart rate is regular rhythm, there are no murmurs, clicks, rubs, or gallops. There is no chest wall tenderness. ABD: Abdomen is soft and nontender. There is no guarding or rebound. Bowel sounds are normal in all 4 quadrants. There is no mass or organomegaly. EXT: 4 cm deep, wedge shaped laceration on anterior raza with heavy bleeding. No evidence of foreign body. Full painless ROM of all extremities with no loss of sensation or strength. SKIN: Warm, pink, and dry. No erythema or rash Initial Vital Signs Initial Vital Signs: Vital Signs Temperature 97.8 F 11/14/20 17:13 Pulse Rate 63 11/14/20 17:13 Respiratory Rate 15 11/14/20 17:13 Blood Pressure 126/62 11/14/20 17:13 Pulse Oximetry 98 11/14/20 17:13 Procedures Laceration Repair Laceration 1: Site: lower extremity Side (If applicable): left (Overlying skin very thin and attempt to place suture poles right through the skin, unable to repair surface, wound care likely will be needed) Size (cm): 4 Description: flap Depth: simple, single layer Local Anesthetic: lidocaine 1% and with bicarb Amount of anesthesia used (mL): 5 Pre-repair: wound explored, irrigated extensively and deep structures intact Size: 5-0 Number of sutures: 3 Technique: simple, interrupted Muscle layer closed with: vicryl (Sutures placed only for hemostasis and closing deep portions of wound) Course Orders Ordered: Discontinued Medications Diphtheria/Tetanus/Acell Pertussis (Tet,Diph,Pertuss(Acell),Vac/Pf 0.5 Ml Syringe) 0.5 ml IM .ONCE ONE Stop: 11/14/20 17:50 Last Admin: 11/14/20 17:59 Dose: 0.5 ml Documented by: FRAN Lidocaine/Sodium Bicarbonate (Lido 1%/Sod Bicarb 8.4% (10ml) 10 Ml Syringe) 10 ml INJ NOW ONE Stop: 11/14/20 17:17 Last Admin: 11/14/20 17:30 Dose: 10 ml Documented by: FRAN Discharge Plan Departure Patient Disposition: Home Clinical Impression: Laceration of left lower leg Qualifiers: Encounter type: initial encounter Qualified Code(s): S81.812A - Laceration without foreign body, left lower leg, initial encounter Instructions: DI for Laceration Repair Activity Restrictions/Additional Instructions: *You have been diagnosed with [left leg laceration and skin tear] *What to do: *Take medications as directed *Follow up with your primary care provider in 2-3 days, call for an appointment. Let them know you were seen in the Emergency Department and that we ask that you be seen in follow up. I have faxed over a wound care referral and they should call you in the next day or 2 for follow-up *Return to ER if you should have any new, worsening or concerning symptoms, such as [increasing pain, bleeding, redness, drainage, fever, chills or other bothersome symptoms] Prescriptions: No Action ASCORBIC ACID (#VITAMIN C) 500 mg PO Q DAY Qty: 0 RF: 0 cyclosporine [Restasis] 1 EACH dropperette 0.4 ml OP Q12HP Qty: 0 RF: 0 [CALMS FORTE] 0.5 tab PO PRN PRNQty: 0 RF: 0 Estring 2 mg (7.5 mcg /24 hour) ring 1 vag ring vaginal [id number] Qty: 1 RF: 3 metoprolol succinate 25 mg tablet extended release 24 hr 25 mg PO DAILY RF: 0 vitamins A,C,Q-yatr-bapnfz [ICaps AREDS] 14,320-226-200 pdkl-tv-ghiu capsule PO BID RF: 0 Referrals: Nirav Gamboa MD [Physician] - Ilana Alejandra DO [Primary Care Provider] -
[2020-11-14] MEDS: LIDO 1%/SOD BICARB 8.4% (10ML) 10 ML SYRINGE INJ (17:30)
[2020-11-14] MEDS: TET,DIPH,PERTUSS(ACELL),VAC/PF 0.5 ML SYRINGE IM (17:59)
[2020-11-14 18:11] VITALS: BP 122/72; PULSE 80; RESP 14; O2SAT 99
== END 2020-11-14 18:12 | disposition home or self-care (01) ==
PROVIDERS: Emergency Provider Emergency Medicine; PCP Family Medicine
DX: S81.812A Laceration without foreign body, left lower leg, initial encounter (principal); W26.8XXA Contact with other sharp object(s), not elsewhere classified, initial encounter; Z23 Encounter for immunization
CPT/HCPCS: 12002; 90471; 99283; 90715

== ENCOUNTER → 2020-11-17 09:54 | Outpatient (CLI) | payer MEDICARE, SELFPAY | PROVIDERS: PCP Family Medicine; Referring Provider Emergency Medicine; Visit Provider Family Medicine | DX: S81.812A Laceration without foreign body, left lower leg, initial encounter (principal); I87.2 Venous insufficiency (chronic) (peripheral); R60.0 Localized edema; W26.8XXA Contact with other sharp object(s), not elsewhere classified, initial encounter | CPT/HCPCS: 11042; 99204; 99213 ==

== ENCOUNTER → 2020-11-24 09:24 | Outpatient (CLI) | payer MEDICARE, SELFPAY | PROVIDERS: PCP Family Medicine; Referring Provider Family Medicine; Visit Provider Family Medicine | DX: S81.802A Unspecified open wound, left lower leg, initial encounter (principal); I87.2 Venous insufficiency (chronic) (peripheral); R60.0 Localized edema; L08.9 Local infection of the skin and subcutaneous tissue, unspecified | CPT/HCPCS: 11042; 87070; 87075; 87077; 87186; 87205; 99214 ==

== ENCOUNTER → 2020-11-26 11:00 | Outpatient (CLI) | payer MEDICARE, SELFPAY | PROVIDERS: PCP Family Medicine; Referring Provider Family Medicine; Visit Provider Nurse Practitioner Family | DX: S81.812A Laceration without foreign body, left lower leg, initial encounter (principal); R60.0 Localized edema | CPT/HCPCS: 29581 ==

== ENCOUNTER → 2020-12-01 15:38 | Outpatient (CLI) | payer MEDICARE, SELFPAY | PROVIDERS: PCP Family Medicine; Referring Provider Family Medicine; Visit Provider Family Medicine | DX: S81.802A Unspecified open wound, left lower leg, initial encounter (principal); I87.2 Venous insufficiency (chronic) (peripheral); R60.0 Localized edema; B95.7 Other staphylococcus as the cause of diseases classified elsewhere | CPT/HCPCS: 11042; 99213 ==

== ENCOUNTER → 2020-12-08 09:13 | Outpatient (CLI) | payer MEDICARE, SELFPAY | PROVIDERS: PCP Family Medicine; Referring Provider Family Medicine; Visit Provider Nurse Practitioner Family | DX: R60.0 Localized edema (principal) | CPT/HCPCS: 29581 ==

== ENCOUNTER → 2020-12-15 08:36 | Outpatient (CLI) | payer MEDICARE, SELFPAY | PROVIDERS: PCP Family Medicine; Referring Provider Family Medicine; Visit Provider Family Medicine | DX: S81.802A Unspecified open wound, left lower leg, initial encounter (principal); I87.2 Venous insufficiency (chronic) (peripheral); R60.0 Localized edema | CPT/HCPCS: 11042 ==

== ENCOUNTER → 2020-12-16 16:03 | Outpatient (CLI) | payer MEDICARE, SELFPAY ==
--- NOTE | 2020-12-16 | DI.MG.S_ITS ---
BILATERAL DIGITAL SCREENING MAMMOGRAM 3D/2D WITH CAD: 12/16/2020 CLINICAL: Routine screening. Comparison is made to exams dated: 05/15/2019 mammogram, 04/12/2018 mammogram, and 03/30/2017 mammogram - [facility]. There are scattered fibroglandular elements in both breasts. Current study was also evaluated with a Computer Aided Detection (CAD) system. No significant masses, calcifications, or other findings are seen in either breast. There has been no significant interval change. IMPRESSION: NEGATIVE There is no mammographic evidence of malignancy. A 1 year screening mammogram is recommended. This exam was interpreted at Station ID: [id number]. NOTE: For mammograms, a report in lay terms will be sent to the patient. Approximately 15% of breast malignancies will not be visualized mammographically. In the management of a palpable breast mass, a negative mammogram must not discourage biopsy of a clinically suspicious lesion. Electronically Signed By: Ajay hannah/kusum:12/16/2020 16:42:42 copy to: Stacia Johnson letter sent: Normal Exam ACR BI-RADS Category 1: Negative [id number]
== END ==
PROVIDERS: PCP Family Medicine; Referring Provider Family Medicine; Visit Provider Family Medicine
DX: Z12.31 Encounter for screening mammogram for malignant neoplasm of breast (principal)
CPT/HCPCS: 77063; 77067

== ENCOUNTER → 2020-12-21 19:13 | Outpatient (ROUT) | payer MEDICARE, SELFPAY ==
[2020-12-21 19:37] LABS: Appearance Urine UA SL CLOUDY; Bilirubin Urine UA NEGATIVE (NEGATIVE); Color Urine UA YELLOW; Glucose Urine UA NEGATIVE (Negative); Ketones Urine UA NEGATIVE (NEGATIVE); Leukocyte Esterase Urine UA 3+ (NEGATIVE); Nitrite Urine UA POSITIVE (Negative); Occult Blood Urine UA 2+ (Negative); Protein Urine UA NEGATIVE (Negative); Specific Gravity Urine UA 1.015 (1.000-1.035); Urobilinogen Urine UA 0.2 E.U./dL (0.2)
[2020-12-21 19:56] LABS: Bacteria Urine Many (>30); Culture Indicated Urine Specimen Cultured; RBC Urine 5-10/HPF (0-5/HPF); Squamous Epithelial Cell Urine 1-5 /HPF (0-5/HPF); WBC Urine 30-100/HPF (0-5/HPF)
== END ==
PROVIDERS: PCP Family Medicine; Visit Provider Nurse Practitioner Family
DX: R30.0 Dysuria (principal)
CPT/HCPCS: 81001; 87077; 87086; 87186

== ENCOUNTER → 2020-12-22 09:25 | Outpatient (CLI) | payer MEDICARE, SELFPAY | PROVIDERS: PCP Family Medicine; Referring Provider Family Medicine; Visit Provider Family Medicine | DX: I87.2 Venous insufficiency (chronic) (peripheral) (principal); S81.802A Unspecified open wound, left lower leg, initial encounter; R60.0 Localized edema | CPT/HCPCS: 97597 ==

== ENCOUNTER → 2020-12-29 09:08 | Outpatient (CLI) | payer MEDICARE, SELFPAY | PROVIDERS: PCP Family Medicine; Referring Provider Family Medicine; Visit Provider Family Medicine | DX: I87.2 Venous insufficiency (chronic) (peripheral) (principal); S81.812D Laceration without foreign body, left lower leg, subsequent encounter | CPT/HCPCS: 99212; 99213 ==

== ENCOUNTER → 2020-12-31 14:21 | Outpatient (CLI) | payer MEDICARE, SELFPAY ==
[2020-12-31 15:10] LABS: Appearance Urine UA TURBID; Bilirubin Urine UA NEGATIVE (NEGATIVE); Color Urine UA YELLOW; Glucose Urine UA NEGATIVE (Negative); Ketones Urine UA NEGATIVE (NEGATIVE); Leukocyte Esterase Urine UA 3+ (NEGATIVE); Nitrite Urine UA POSITIVE (Negative); Occult Blood Urine UA 2+ (Negative); Protein Urine UA NEGATIVE (Negative); Specific Gravity Urine UA 1.015 (1.000-1.035); Urobilinogen Urine UA 0.2 E.U./dL (0.2)
[2020-12-31 15:33] LABS: Bacteria Urine Many (>30); RBC Urine 5-10/HPF (0-5/HPF); Renal Epithelial Cells Urine 0-1/HPF (0-1/HPF); Squamous Epithelial Cell Urine 1-5 /HPF (0-5/HPF); WBC Urine >100/HPF (0-5/HPF)
[2020-12-31 15:34] LABS: Culture Indicated Urine Specimen Cultured
== END ==
PROVIDERS: PCP Family Medicine; Referring Provider Family Medicine; Visit Provider Family Medicine
DX: N39.0 Urinary tract infection, site not specified (principal)
CPT/HCPCS: 81001; 87077; 87086; 87186

== ENCOUNTER → 2021-04-29 09:29 | Outpatient (CLI) | payer MEDICARE, SELFPAY | PROVIDERS: PCP Family Medicine; Visit Provider Nurse Practitioner | DX: R30.0 Dysuria (principal); R35.0 Frequency of micturition | CPT/HCPCS: 87077; 87086; 87186 ==

== ENCOUNTER → 2021-07-05 15:03 | Outpatient (CLI) | payer MEDICARE, SELFPAY | PROVIDERS: PCP Family Medicine; Referring Provider Physician Assistant; Visit Provider Physician Assistant | DX: N34.3 Urethral syndrome, unspecified (principal) | CPT/HCPCS: 87077; 87086; 87186 ==

== ENCOUNTER → 2021-07-19 10:18 | Outpatient (CLI) | payer MEDICARE, SELFPAY ==
[2021-07-19 11:50] LABS: Appearance Urine UA SL CLOUDY; Bilirubin Urine UA NEGATIVE (NEGATIVE); Color Urine UA YELLOW; Glucose Urine UA NEGATIVE (Negative); Ketones Urine UA NEGATIVE (NEGATIVE); Leukocyte Esterase Urine UA 3+ (NEGATIVE); Nitrite Urine UA POSITIVE (Negative); Occult Blood Urine UA 2+ (Negative); Protein Urine UA NEGATIVE (Negative); Specific Gravity Urine UA <=1.005 (1.000-1.035); Urobilinogen Urine UA 0.2 E.U./dL (0.2)
[2021-07-19 12:16] LABS: Bacteria Urine Many (>30); RBC Urine 1-5/HPF (0-5/HPF); Squamous Epithelial Cell Urine 1-5 /HPF (0-5/HPF); WBC Urine 30-100/HPF (0-5/HPF)
[2021-07-19 12:17] LABS: Culture Indicated Urine Specimen Cultured
== END ==
PROVIDERS: PCP Family Medicine; Referring Provider Family Medicine; Visit Provider Family Medicine
DX: N30.01 Acute cystitis with hematuria (principal)
CPT/HCPCS: 81001; 87077; 87086; 87186

== ENCOUNTER → 2021-09-20 07:40 | Outpatient (CLI) | payer MEDICARE, SELFPAY ==
[2021-09-20 08:38] LABS: Alanine Aminotransferase 20 IU/L (<35); Albumin 4.2 g/dL (3.5-5.0); Albumin Globulin Ratio 1.5 (1.0-2.8); Alkaline Phosphatase 62 U/L (38-126); Aspartate Aminotransferase 25 IU/L (14-36); BUN Creatinine Ratio 37.5 (6-22); Blood Urea Nitrogen 21 mg/dL (7-17); Calcium 9.3 mg/dL (8.4-10.2); Carbon Dioxide 29 mmol/L (22-32); Chloride 104 mmol/L (98-107); Cholesterol 193 mg/dL (140-199); Estimated Glomerular Filt Rate > 60.0 mL/min (>60); Globulin 2.8 g/dL (1.7-4.1); Glucose 91 mg/dL (80-110); HDL Cholesterol 75 mg/dL (40-60); HEMOLYSIS < 15 (0-50); LDL Cholesterol Calculated 104 mg/dL (<100); Potassium 4.8 mmol/L (3.4-5.1); Sodium 136 mmol/L (137-145); Triglycerides 70 mg/dL (35-150)
== END ==
PROVIDERS: PCP Family Medicine; Referring Provider Family Medicine; Visit Provider Family Medicine
DX: E78.5 Hyperlipidemia, unspecified (principal); M81.0 Age-related osteoporosis without current pathological fracture
CPT/HCPCS: 36415; 80053; 80061

== ENCOUNTER → 2021-11-14 10:46 | Outpatient (CLI) | payer MEDICARE, SELFPAY | PROVIDERS: Family Provider Family Medicine; PCP Family Medicine; Referring Provider Family Medicine; Visit Provider Family Medicine | DX: M81.0 Age-related osteoporosis without current pathological fracture (principal); Z78.0 Asymptomatic menopausal state; M19.071 Primary osteoarthritis, right ankle and foot; M19.072 Primary osteoarthritis, left ankle and foot | CPT/HCPCS: 77080 ==

== ENCOUNTER 2021-12-16 13:00 | Outpatient (RCR) | payer MEDICARE, SELFPAY ==
--- NOTE | 2021-11-07 17:28 | PT.OIE ---
Current Diagnoses Muscle weakness (generalized) (11/07/21) Unsteadiness on feet (11/07/21) Other abnormalities of gait and mobility (11/07/21) Unspecified abnormalities of gait and mobility (11/07/21) Abnormal posture (11/07/21) Past Medical History (Last Reviewed 07/05/21 @ 16:41 by Nuria Ludwig PA-C) Aortic valve stenosis, moderate Arthritis of foot (~1999) Cataracts, bilateral Cervical spine disease (~2013) Chickenpox Dry skin Hearing loss Hemorrhoids (~1959) History of bladder suspension procedure (~2001) History of vein stripping (~1965) History of wrist fracture (~1949) Hyperlipidemia (08/29/13) Measles Mumps Murmur (~2010) 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 Osteopenia (~1999) Shoulder pain Urinary incontinence (06/02/11) Urinary incontinence, urge (~1999) Past Surgical History (Last Reviewed 07/05/21 @ 16:41 by Nuria Ludwig PA-C) Anesthesia complication History of bladder suspension procedure (~2001) History of cataract removal with insertion of prosthetic lens History of knee replacement (~2010) History of knee replacement (~2011) History of tonsillectomy (~1949) History of vein stripping (~1965) Pilonidal cyst (~1999) Status post appendectomy (~1949) Status post hysterectomy with oophorectomy (~1979) Surgical procedure planned (~1964) Visit Care Team Role Provider Type Ann Gonzalez MD Attending Provider Physician Family Provider Primary Care Provider Referring Provider Specialty: Family Practice Address: [address] [place] [address], [facility] Phone: Fax: Email: [email or web address] Physical Therapy Initial Evaluation PT-OP-A Visit Information Start: 11/01/21 18:51 Freq: Status: Active Protocol: Document 11/07/21 13:03 LRN (Rec: 11/07/21 17:24 [email or web address] [id number]) Out-Patient Physical Therapy Visit Information Visit Information Visit Type Initial Evaluation Visit Start Time 13:03 Visit Stop Time 13:50 Total Visit Minutes 47 Visit Number 1 Evaluation Information Evaluation Date 11/07/21 Precautions Precautions Osteopenia (chiropractor won't touch her back), [place] TKA's ( 2011, 2010), arthritis, occasional falls. PT-OP-B Current Condition Start: 11/01/21 18:51 Freq: Status: Active Protocol: Document 11/07/21 13:03 LRN (Rec: 11/07/21 17:24 LRN [id number]) Current Condition History of Current Condition Onset Date 2-3 yrs ago Current Complaints Has to walk slowly and akwardly and has trouble getting up out of chair. History of Current Condition Past 2-3 yrs started to have walking and balance changes caused her to walk slower, which is an annoyance. Denies dizziness. Sometimes L knee pain. Fell a year ago going up one step tripping on the first step because didn't see it because the grass had grown over it. 1 step into house ( 4 step) and 14 steps inside the house. Prior Treatments and Tests None Future Testing and Treatments Planned None Treatment Goals Patient/Caregiver Goals Pt goal is to improve her muscle strength everywhere. Pt goal is to be able to walk more symmetrically, and faster . Pt agreeable to pool therapy in a month or two. Prior Functional Status Baseline Function- ADL's Independent Baseline Function- Mobility Independent Baseline Function- Gait Ambulated independently without assistive devices. Current Functional Impairments (Reported) Functional Limitations- ADL's Trying to cook uses counters to stabilize herself. Functional Limitations- Mobility/Gait Ambulates with 2 walking sticks outside the home and no assistive devices in the home , wearing orthotics for past 9 months. Personal Factors Other Personal Factors That May Effect Chronicity of condition, Therapy/Recovery osteopenia, Lives with spouse who has cancer in one ear, so she does all cooking and she hangs onto objects to steady herself because she doesn't use walking sticks inside the house. PT-OP-C Subjective Start: 11/01/21 18:51 Freq: Status: Active Protocol: Document 11/07/21 13:03 LRN (Rec: 11/07/21 17:24 LRN [id number]) Patient Questionnaires ABC- Activity Specific Balance Confidence Scale ABC Score 48.125 ABC Functional Impairment 40 to <60% Impaired (Score 41- 60) OP-PT Pain Assessment Location Bilateral feet Pain Location Details Feet generally in AM. Intensity 6 Scale Used Numeric (0 - 10) PT-OP-D Balance Start: 11/01/21 18:51 Freq: Status: Active Protocol: Document 11/07/21 13:03 LRN (Rec: 11/07/21 17:27 LRN [id number]) Balance Tests Romberg Romberg EO 60 secs Single Limb Standing Single Limb- Right 0 Single Limb- Left 0 PT-OP-E Functional Tests Start: 11/01/21 18:51 Freq: Status: Active Protocol: Document 11/07/21 13:03 LRN (Rec: 11/07/21 17:24 LRN [id number]) Functional Tests Dynamic Gait Index (DGI) Score 14 DGI Impairment Rating 40 to <60% Impaired (Score 10- 14) Timed Up and Go (TUG) Score 20 with walking sticks, 17 without AD Comments Used 2 walking sticks. TUG Impairment Rating 60 to <80% Impaired (Score 16- 17) PT-OP-G Mobility & Gait Start: 11/01/21 18:51 Freq: Status: Active Protocol: Document 11/07/21 13:03 LRN (Rec: 11/07/21 17:24 LRN [id number]) OP Gait Assessment Gait Gait Assistance Required: Independent Able to Maintain Weight Bearing Status Yes During Gait Gait Deviations General Gait Pattern Decreased Stride Length,Flexed Trunk,Lateral Trunk Lean Comments Gait Comments Assistive devices used: 2 walking sticks outside. No assistive device inside home. Has shorter step length with LLE. Stair Climbing Evaluation Comments Stair Climbing Comments Pt reports no problems with stair ambulation, uses 2 railings. PT-OP-J Posture/Palpation/Skin Start: 11/01/21 18:51 Freq: Status: Active Protocol: Document 11/07/21 13:03 LRN (Rec: 11/07/21 17:24 LRN [id number]) Posture Evaluation Position Standing Evaluation View Lateral Head/C-Spine Posture Forward Head L-Spine Posture Flattened Hip Posture (L) Flexed,(R) Flexed Comments Posture Comments Stands in hip flex 50-60 deg's hip flexion. PT-OP-M Strength Start: 11/01/21 18:51 Freq: Status: Active Protocol: Document 11/07/21 13:03 LRN (Rec: 11/07/21 17:24 LRN [id number]) Trunk Strength Trunk Manual Muscle Testing Core Stabilization Pt is not able to maintain a stable core during gait or with hip mobility in standing. Hip Strength Hip Manual Muscle Testing Right Flexion (L2) 3+ Fair+ Extension (S1) 2- Poor- Abduction 3- Fair- External Rotation 3+ Fair+ Internal Rotation 2- Poor- Comments Pt assessed in standing moving against gravity. Left Flexion (L2) 3+ Fair+ Extension (S1) 2- Poor- Abduction 3- Fair- External Rotation 3+ Fair+ Internal Rotation 2- Poor- PT-OP-Q Treatments Start: 11/01/21 18:51 Freq: Status: Active Protocol: Document 11/07/21 13:03 LRN (Rec: 11/07/21 17:24 LRN [id number]) Self-Care/Home Management Treatment Education Other Education Discussed results of evaluation, goals, and plan of care (POC). Pt agreeable to goals and POC. PT-OP-T Assessment and Plan Start: 11/01/21 18:51 Freq: Status: Active Protocol: Document 11/07/21 13:03 LRN (Rec: 11/07/21 17:24 LRN [id number]) Physical Therapy Assessment Rehab Potential Rehabilitation Potential Good Evaluation Complexity Number of Personal Factors/Comorbidities 1-2 Number of Body Systems Impaired 4 or More Clinical Presentation at Evaluation Evolving Impairments Impairments Balance,Gait,Posture,ROM,Soft Tissue Mobility,Strength Other Concerns Barriers to Rehabilitation Chronicity of condition. Goals Four Impairment Decreased stability with gait per TUG score 17 without asst device. Impairment TUG score 17 without asst device (60<80% impaired, score 16-17). TUG score 20 with walking sticks (100% impaired). Short Term Goal (STG) Improve TUG score without asst device to 15 (40<60% impaired , score 14-15), and with walking sticks to 18 (80<100% impaired, score 18-19). STG Duration 01/06/22 Mcfp Goal (LTG) Imiprove stability with gait with pt able to report no use of support surfaces to manueuver around her kitchen during meal prep. LTG Duration 02/05/22 Three Impairment Decreased gait ability per DGI score of 14 Impairment DGI 14 (40-<60% impaired, score 10-14) Short Term Goal (STG) Improve safety with gait per DGI score of 19 or higher ( score 15-19 is 20<40% impaired , score 20-23 is 1<20% impaired). STG Duration 01/06/22 Mcfp Goal (LTG) Pt will be able to walk more symmetrically and faster. LTG Duration 02/05/22 Two Impairment Decreased core and LE strength resulting in poor posture Short Term Goal (STG) Pt will be educated in general strengthening ex's of core & LE's. STG Duration 01/06/22 Bullet Casting Operator Goal (LTG) Pt will demonstrate improved standing posture resulting from improved LE and trunk strength. LTG Duration 02/05/22 One Impairment Pt lacks appropriate self care HEP. Short Term Goal (STG) Pt will be independent with a self care HEP. STG Duration 01/06/22 Bullet Casting Operator Goal (LTG) Pt will be independent with a self care aquatic exercise program. LTG Duration 02/05/22 Assessment Summary Assessment The pt presents with gait dyfunction due to postural deviations, decreased balance and LE and core weakness. The pt feels overall weakness that could also be contributing to her decrease in standing balance. The pt will benefit from skilled land based physical therapy (to start) and skilled aquatic based physical therapy (to end ) for focus on improving gait and balance stability through lumbar/hip mobility for improved posture and for hip/ core/pelvic stabilization/ strength. Pt education will be focus on self care and home exercises, body mechanics training to improve balance with functional activities. Physical Therapy Plan Frequency and Duration Frequency of Treatment 2x/Week Plan of Care Start Date 11/07/21 Plan of Care End Date 02/05/22 Therapeutic Interventions Therapeutic Interventions Aquatic Therapy,Balance Training,Gait Training,Home Exercise Program,Neuromuscular Re-education,Patient/ Caregiver Education,Self-Care/ Home Management,Therapeutic Activities,Therapeutic Exercises Modalities Cold Pack/Ice Massage,Hot Packs Next Visit Focus/Plan Next Note Type Treatment Note Next Visit Plan Assess LE strength of knees and ankles, hip Ext & IR strength. Assess tolerance to supine lying and restrictions for improved posturing. Assess MAYO balance. Self care HEP: postural ex's of trunk/hip ROM/strengthening , ankle strengthening. Ther Act: sit to stand transfers (and as ex) and ex to improve LE/core strength.
--- NOTE | 2021-11-10 17:36 | PT.OTN ---
Current Diagnoses Muscle weakness (generalized) (11/10/21) Unsteadiness on feet (11/10/21) Other abnormalities of gait and mobility (11/10/21) Unspecified abnormalities of gait and mobility (11/10/21) Abnormal posture (11/10/21) Physical Therapy Treatment Note PT-OP-A Visit Information Start: 11/01/21 18:51 Freq: Status: Active Protocol: Document 11/10/21 13:01 LRN (Rec: 11/10/21 13:50 LRN [id number]) Out-Patient Physical Therapy Visit Information Visit Information Visit Type Treatment Note Visit Start Time 13:02 Visit Stop Time 13:46 Total Visit Minutes 44 Visit Number 2 Evaluation Information Evaluation Date 11/07/21 Precautions Precautions Osteopenia (chiropractor won't touch her back), [place] TKA's ( 2011, 2010), arthritis, occasional falls. PT-OP-B Current Condition Start: 11/01/21 18:51 Freq: Status: Active Protocol: Document 11/07/21 13:03 LRN (Rec: 11/07/21 17:24 LRN [id number]) Current Condition History of Current Condition Onset Date 2-3 yrs ago Current Complaints Has to walk slowly and akwardly and has trouble getting up out of chair. History of Current Condition Past 2-3 yrs started to have walking and balance changes caused her to walk slower, which is an annoyance. Denies dizziness. Sometimes L knee pain. Fell a year ago going up one step tripping on the first step because didn't see it because the grass had grown over it. 1 step into house ( 4 step) and 14 steps inside the house. Prior Treatments and Tests None Future Testing and Treatments Planned None Treatment Goals Patient/Caregiver Goals Pt goal is to improve her muscle strength everywhere. Pt goal is to be able to walk more symmetrically, and faster . Pt agreeable to pool therapy in a month or two. Prior Functional Status Baseline Function- ADL's Independent Baseline Function- Mobility Independent Baseline Function- Gait Ambulated independently without assistive devices. Current Functional Impairments (Reported) Functional Limitations- ADL's Trying to cook uses counters to stabilize herself. Functional Limitations- Mobility/Gait Ambulates with 2 walking sticks outside the home and no assistive devices in the home , wearing orthotics for past 9 months. Personal Factors Other Personal Factors That May Effect Chronicity of condition, Therapy/Recovery osteopenia, Lives with spouse who has cancer in one ear, so she does all cooking and she hangs onto objects to steady herself because she doesn't use walking sticks inside the house. PT-OP-C Subjective Start: 11/01/21 18:51 Freq: Status: Active Protocol: Document 11/10/21 13:01 LRN (Rec: 11/10/21 13:50 LRN [id number]) OP-PT Subjective Patient Comments Patient Comments States she strained her L achilles a day before the last visit and it aches; therefore her walking is slow. PT-OP-D Balance Start: 11/01/21 18:51 Freq: Status: Active Protocol: Document 11/07/21 13:03 LRN (Rec: 11/07/21 17:27 LRN [id number]) Balance Tests Romberg Romberg EO 60 secs Single Limb Standing Single Limb- Right 0 Single Limb- Left 0 PT-OP-E Functional Tests Start: 11/01/21 18:51 Freq: Status: Active Protocol: Document 11/10/21 13:01 LRN (Rec: 11/10/21 13:50 LRN [id number]) Functional Tests Five Times Sit to Stand Test Score 16 Comments 10x sit to paper and prints restorer ~30 secs, pt lost balance bkwds on 10th time. PT-OP-G Mobility & Gait Start: 11/01/21 18:51 Freq: Status: Active Protocol: Document 11/07/21 13:03 LRN (Rec: 11/07/21 17:24 LRN [id number]) OP Gait Assessment Gait Gait Assistance Required: Independent Able to Maintain Weight Bearing Status Yes During Gait Gait Deviations General Gait Pattern Decreased Stride Length,Flexed Trunk,Lateral Trunk Lean Comments Gait Comments Assistive devices used: 2 walking sticks outside. No assistive device inside home. Has shorter step length with LLE. Stair Climbing Evaluation Comments Stair Climbing Comments Pt reports no problems with stair ambulation, uses 2 railings. PT-OP-J Posture/Palpation/Skin Start: 11/01/21 18:51 Freq: Status: Active Protocol: Document 11/07/21 13:03 LRN (Rec: 11/07/21 17:24 LRN [id number]) Posture Evaluation Position Standing Evaluation View Lateral Head/C-Spine Posture Forward Head L-Spine Posture Flattened Hip Posture (L) Flexed,(R) Flexed Comments Posture Comments Stands in hip flex 50-60 deg's hip flexion. PT-OP-M Strength Start: 11/01/21 18:51 Freq: Status: Active Protocol: Document 11/10/21 13:01 LRN (Rec: 11/10/21 13:50 LRN [id number]) Hip Strength Hip Manual Muscle Testing Right Flexion (L2) 5 Normal Extension (S1) 3+ Fair+ Abduction 3- Fair- External Rotation 3+ Fair+ Internal Rotation 2- Poor- Comments Assessed in supine, sidelie and prone on plinth. Left Flexion (L2) 5 Normal Extension (S1) 3+ Fair+ Abduction 2- Poor- External Rotation 3+ Fair+ Internal Rotation 2- Poor- Comments Assessed in supine, sidelie and prone on plinth. Knee Strength Knee Manual Muscle Testing Right Flexion (S2) 5 Normal Extension (L3) 4 Good Left Flexion (S2) 5 Normal Extension (L3) 4 Good Ankle/Foot Strength Ankle and Foot Manual Muscle Testing Right Dorsiflexion (L4) 5 Normal Plantarflexion (S1) 5 Normal Inversion 5 Normal Eversion (S1) 4 Good Left Dorsiflexion (L4) 5 Normal Plantarflexion (S1) 5 Normal Inversion 5 Normal Eversion (S1) 4+ Good+ PT-OP-Q Treatments Start: 11/01/21 18:51 Freq: Status: Active Protocol: Document 11/10/21 13:01 LRN (Rec: 11/10/21 13:50 [facility] [id number]) Therapeutic Exercises Supine Exercises Reverse Clamshell Supine Exercise Name Reverse Clamshell - hold for next treatment. Side bilateral Clamshell Supine Exercise Name Clamshell Side bilateral Reps/Minutes 15x Comments Much phy & v cuing to keep pelvic stable. Pt not able to keep hips stable Hip AB Supine Exercise Name Active Hip AB Side bilateral Reps/Minutes 15x each Comments Much v & phy cuing for leading with heel, pt's feet flop with each rep. SLR Supine Exercise Name SLR Side bilateral Reps/Minutes 15x each Comments Cuing needed for lift range and core stab Bridging Supine Exercise Name Bridging Reps/Minutes 15x Sitting Exercises Knee Ext Sitting Exercise Name Knee ext strengthening Side bilateral Equipment Used Lev 2 TB Reps/Minutes 15x each Comments Extra time for finding max tolerated positioning and ex tolerance Ankle EV Sitting Exercise Name Ankle EV strengthening Side bilateral Equipment Used Lev 2 TB Reps/Minutes 15x each Comments Extra time for finding max tolerated positioning and ex tolerance Sit to Stands Sitting Exercise Name Sit to Stands Reps/Minutes 10x Self-Care/Home Management Treatment Education Patient Education Home Exercise Program Activities Self-Care/Home Management Activities Issued & reviewed HEP: knee, ankle & hip strengthening. PT-OP-T Assessment and Plan Start: 11/01/21 18:51 Freq: Status: Active Protocol: Document 11/10/21 13:01 LRN (Rec: 11/10/21 13:50 LRN [id number]) Physical Therapy Assessment Goals Four Impairment Decreased stability with gait per TUG score 17 without asst device. Impairment TUG score 17 without asst device (60<80% impaired, score 16-17). TUG score 20 with walking sticks (100% impaired). Short Term Goal (STG) Improve TUG score without asst device to 15 (40<60% impaired , score 14-15), and with walking sticks to 18 (80<100% impaired, score 18-19). STG Duration 01/06/22 Ultra Sound Technician Goal (LTG) Imiprove stability with gait with pt able to report no use of support surfaces to manueuver around her kitchen during meal prep. LTG Duration 02/05/22 Three Impairment Decreased gait ability per DGI score of 14 Impairment DGI 14 (40-<60% impaired, score 10-14) Short Term Goal (STG) Improve safety with gait per DGI score of 19 or higher ( score 15-19 is 20<40% impaired , score 20-23 is 1<20% impaired). STG Duration 01/06/22 Ultra Sound Technician Goal (LTG) Pt will be able to walk more symmetrically and faster. LTG Duration 02/05/22 Two Impairment Decreased core and LE strength resulting in poor posture Short Term Goal (STG) Pt will be educated in general strengthening ex's of core & LE's. STG Duration 01/06/22 Shelter Goal (LTG) Pt will demonstrate improved standing posture resulting from improved LE and trunk strength. LTG Duration 02/05/22 One Impairment Pt lacks appropriate self care HEP. Short Term Goal (STG) Pt will be independent with a self care HEP. STG Duration 01/06/22 Ultra Sound Technician Goal (LTG) Pt will be independent with a self care aquatic exercise program. (11/10/21: HEP issued: TB ankle EV & knee ext strengthening) LTG Duration 02/05/22 (11/10/21: Progressed ) Progress Towards Goals Progress Comments Progressed HEP. Assessment Summary Assessment Knees are weak with extension, and ankles with EV, hips are generally weak . Pt not able to keep pelvis stable with hip AB and clamshell. Poor awareness of core control. She has difficulty finding the muscles to do and anterior shift of her pelvis. She has no pain with supine lying or performing a bridge (lumbar/ thoracic ext); therefore her forward bent posture with standing and walking is not mechanical in nature, may be habitual. Physical Therapy Plan Frequency and Duration Frequency of Treatment 2x/Week Plan of Care Start Date 11/07/21 Plan of Care End Date 02/05/22 Next Visit Focus/Plan Next Note Type Treatment Note Next Visit Plan Assess MAYO balance. Self care HEP: postural ex's of trunk/hip ROM/strengthening , ankle strengthening. Ther Act: sit to stand transfers (and as ex) and ex to improve LE/core strength.
--- NOTE | 2021-11-14 17:40 | PT.OTN ---
Current Diagnoses Muscle weakness (generalized) (11/14/21) Unsteadiness on feet (11/14/21) Other abnormalities of gait and mobility (11/14/21) Unspecified abnormalities of gait and mobility (11/14/21) Abnormal posture (11/14/21) Physical Therapy Treatment Note PT-OP-A Visit Information Start: 11/01/21 18:51 Freq: Status: Active Protocol: Document 11/14/21 09:00 LRN (Rec: 11/14/21 09:46 LRN [id number]) Out-Patient Physical Therapy Visit Information Visit Information Visit Type Treatment Note Visit Start Time 09:00 Visit Stop Time 09:45 Total Visit Minutes 45 Visit Number 3 Evaluation Information Evaluation Date 11/07/21 Precautions Precautions Osteopenia (chiropractor won't touch her back), [place] TKA's ( 2011, 2010), arthritis, occasional falls. PT-OP-B Current Condition Start: 11/01/21 18:51 Freq: Status: Active Protocol: Document 11/07/21 13:03 LRN (Rec: 11/07/21 17:24 LRN [id number]) Current Condition History of Current Condition Onset Date 2-3 yrs ago Current Complaints Has to walk slowly and akwardly and has trouble getting up out of chair. History of Current Condition Past 2-3 yrs started to have walking and balance changes caused her to walk slower, which is an annoyance. Denies dizziness. Sometimes L knee pain. Fell a year ago going up one step tripping on the first step because didn't see it because the grass had grown over it. 1 step into house ( 4 step) and 14 steps inside the house. Prior Treatments and Tests None Future Testing and Treatments Planned None Treatment Goals Patient/Caregiver Goals Pt goal is to improve her muscle strength everywhere. Pt goal is to be able to walk more symmetrically, and faster . Pt agreeable to pool therapy in a month or two. Prior Functional Status Baseline Function- ADL's Independent Baseline Function- Mobility Independent Baseline Function- Gait Ambulated independently without assistive devices. Current Functional Impairments (Reported) Functional Limitations- ADL's Trying to cook uses counters to stabilize herself. Functional Limitations- Mobility/Gait Ambulates with 2 walking sticks outside the home and no assistive devices in the home , wearing orthotics for past 9 months. Personal Factors Other Personal Factors That May Effect Chronicity of condition, Therapy/Recovery osteopenia, Lives with spouse who has cancer in one ear, so she does all cooking and she hangs onto objects to steady herself because she doesn't use walking sticks inside the house. PT-OP-C Subjective Start: 11/01/21 18:51 Freq: Status: Active Protocol: Document 11/14/21 09:00 LRN (Rec: 11/14/21 09:46 LRN [id number]) OP-PT Subjective Patient Comments Patient Comments States did not do ex's because of company. PT-OP-D Balance Start: 11/01/21 18:51 Freq: Status: Active Protocol: Document 11/07/21 13:03 LRN (Rec: 11/07/21 17:27 LRN [id number]) Balance Tests Romberg Romberg EO 60 secs Single Limb Standing Single Limb- Right 0 Single Limb- Left 0 PT-OP-E Functional Tests Start: 11/01/21 18:51 Freq: Status: Active Protocol: Document 11/10/21 13:01 LRN (Rec: 11/10/21 13:50 LRN [id number]) Functional Tests Five Times Sit to Stand Test Score 16 Comments 10x sit to insurance billing clerk ~30 secs, pt lost balance bkwds on 10th time. PT-OP-G Mobility & Gait Start: 11/01/21 18:51 Freq: Status: Active Protocol: Document 11/07/21 13:03 LRN (Rec: 11/07/21 17:24 LRN [id number]) OP Gait Assessment Gait Gait Assistance Required: Independent Able to Maintain Weight Bearing Status Yes During Gait Gait Deviations General Gait Pattern Decreased Stride Length,Flexed Trunk,Lateral Trunk Lean Comments Gait Comments Assistive devices used: 2 walking sticks outside. No assistive device inside home. Has shorter step length with LLE. Stair Climbing Evaluation Comments Stair Climbing Comments Pt reports no problems with stair ambulation, uses 2 railings. PT-OP-J Posture/Palpation/Skin Start: 11/01/21 18:51 Freq: Status: Active Protocol: Document 11/07/21 13:03 LRN (Rec: 11/07/21 17:24 LRN [id number]) Posture Evaluation Position Standing Evaluation View Lateral Head/C-Spine Posture Forward Head L-Spine Posture Flattened Hip Posture (L) Flexed,(R) Flexed Comments Posture Comments Stands in hip flex 50-60 deg's hip flexion. PT-OP-M Strength Start: 11/01/21 18:51 Freq: Status: Active Protocol: Document 11/10/21 13:01 LRN (Rec: 11/10/21 13:50 LRN [id number]) Hip Strength Hip Manual Muscle Testing Right Flexion (L2) 5 Normal Extension (S1) 3+ Fair+ Abduction 3- Fair- External Rotation 3+ Fair+ Internal Rotation 2- Poor- Comments Assessed in supine, sidelie and prone on plinth. Left Flexion (L2) 5 Normal Extension (S1) 3+ Fair+ Abduction 2- Poor- External Rotation 3+ Fair+ Internal Rotation 2- Poor- Comments Assessed in supine, sidelie and prone on plinth. Knee Strength Knee Manual Muscle Testing Right Flexion (S2) 5 Normal Extension (L3) 4 Good Left Flexion (S2) 5 Normal Extension (L3) 4 Good Ankle/Foot Strength Ankle and Foot Manual Muscle Testing Right Dorsiflexion (L4) 5 Normal Plantarflexion (S1) 5 Normal Inversion 5 Normal Eversion (S1) 4 Good Left Dorsiflexion (L4) 5 Normal Plantarflexion (S1) 5 Normal Inversion 5 Normal Eversion (S1) 4+ Good+ PT-OP-Q Treatments Start: 11/01/21 18:51 Freq: Status: Active Protocol: Document 11/14/21 09:00 LRN (Rec: 11/14/21 09:46 LRN [id number]) Therapeutic Exercises Supine Exercises QL w/elbow digs Supine Exercise Name QL with elbow pressing into plinth, legs bent/strght Side bilateral Reps/Minutes 5' Comments Much phys & v cuing needed with legs stgt, legs bent QL Supine Exercise Name Arching of back Side bilateral Reps/Minutes 8' Comments Much phys & v cuing needed with legs stgt, legs bent Sidelying Exercises Clamshell Sidelying Exercise Name Clamshell w/topPplvic anter rot Reps/Minutes 11' R knee lift, 9' L knee lift Comments Much phy & v cuing to keep pelvic stable. Pt not able to keep hips stable Pelvic Anter Rot Sidelying Exercise Name Top pelvis Anter rot. Side bilateral Reps/Minutes 4' on each side Comments Much phy & v cuing to keep pelvic stable. Pt not able to keep hips stable Standing Exercises Single leg step ups on step Standing Exercise Name Single leg step ups 4x each, 6 steps Side bilateral Comments 17 secs without use of hands. PT-OP-T Assessment and Plan Start: 11/01/21 18:51 Freq: Status: Active Protocol: Document 11/14/21 09:00 LRN (Rec: 11/14/21 09:46 LRN [id number]) Physical Therapy Assessment Goals Four Impairment Decreased stability with gait per TUG score 17 without asst device. Impairment TUG score 17 without asst device (60<80% impaired, score 16-17). TUG score 20 with walking sticks (100% impaired). Short Term Goal (STG) Improve TUG score without asst device to 15 (40<60% impaired , score 14-15), and with walking sticks to 18 (80<100% impaired, score 18-19). STG Duration 01/06/22 Press Operator [employer] Goal (LTG) Imiprove stability with gait with pt able to report no use of support surfaces to manueuver around her kitchen during meal prep. LTG Duration 02/05/22 Three Impairment Decreased gait ability per DGI score of 14 Impairment DGI 14 (40-<60% impaired, score 10-14) Short Term Goal (STG) Improve safety with gait per DGI score of 19 or higher ( score 15-19 is 20<40% impaired , score 20-23 is 1<20% impaired). STG Duration 01/06/22 Press Operator [employer] Goal (LTG) Pt will be able to walk more symmetrically and faster. LTG Duration 02/05/22 Two Impairment Decreased core and LE strength resulting in poor posture Short Term Goal (STG) Pt will be educated in general strengthening ex's of core & LE's. STG Duration 01/06/22 Press Operator [employer] Goal (LTG) Pt will demonstrate improved standing posture resulting from improved LE and trunk strength. LTG Duration 02/05/22 One Impairment Pt lacks appropriate self care HEP. Short Term Goal (STG) Pt will be independent with a self care HEP. STG Duration 01/06/22 Press Operator [employer] Goal (LTG) Pt will be independent with a self care aquatic exercise program. (11/10/21: HEP issued: TB ankle EV & knee ext strengthening) LTG Duration 02/05/22 (11/10/21: Progressed ) Progress Towards Goals Progress Comments Pt able to tighten lower trunk extensors weakly after training, and was able to better stabilize pelvis during clamshell. Assessment Summary Assessment Pt has very poor lower trunk ext & QL strength, as well as poor lower trunk rotator control, making arching of back and stablization with clamshell difficult. Pt was able to do R clamshell easier than L, possibly due to training on L first. Loss of stab mostly after 45 deg lift. Physical Therapy Plan Frequency and Duration Frequency of Treatment 2x/Week Plan of Care Start Date 11/07/21 Plan of Care End Date 02/05/22 Next Visit Focus/Plan Next Note Type Treatment Note Next Visit Plan Complete MAYO balance. Self care HEP: postural ex's of trunk/hip ROM/strengthening , ankle strengthening. Ther Act: sit to stand transfers (and as ex) and ex to improve LE/core strength.
--- NOTE | 2021-11-24 10:34 | PT.OTN ---
Current Diagnoses Muscle weakness (generalized) (11/24/21) Unsteadiness on feet (11/24/21) Other abnormalities of gait and mobility (11/24/21) Unspecified abnormalities of gait and mobility (11/24/21) Abnormal posture (11/24/21) Physical Therapy Treatment Note PT-OP-A Visit Information Start: 11/01/21 18:51 Freq: Status: Active Protocol: Document 11/24/21 09:45 LRN (Rec: 11/24/21 10:33 LRN [id number]) Out-Patient Physical Therapy Visit Information Visit Information Visit Type Treatment Note Visit Start Time 09:45 Visit Stop Time 10:25 Total Visit Minutes 40 Visit Number 5 Evaluation Information Evaluation Date 11/07/21 Precautions Precautions Osteopenia (chiropractor won't touch her back), [place] TKA's ( 2011, 2010), arthritis, occasional falls. PT-OP-B Current Condition Start: 11/01/21 18:51 Freq: Status: Active Protocol: Document 11/07/21 13:03 LRN (Rec: 11/07/21 17:24 LRN [id number]) Current Condition History of Current Condition Onset Date 2-3 yrs ago Current Complaints Has to walk slowly and akwardly and has trouble getting up out of chair. History of Current Condition Past 2-3 yrs started to have walking and balance changes caused her to walk slower, which is an annoyance. Denies dizziness. Sometimes L knee pain. Fell a year ago going up one step tripping on the first step because didn't see it because the grass had grown over it. 1 step into house ( 4 step) and 14 steps inside the house. Prior Treatments and Tests None Future Testing and Treatments Planned None Treatment Goals Patient/Caregiver Goals Pt goal is to improve her muscle strength everywhere. Pt goal is to be able to walk more symmetrically, and faster . Pt agreeable to pool therapy in a month or two. Prior Functional Status Baseline Function- ADL's Independent Baseline Function- Mobility Independent Baseline Function- Gait Ambulated independently without assistive devices. Current Functional Impairments (Reported) Functional Limitations- ADL's Trying to cook uses counters to stabilize herself. Functional Limitations- Mobility/Gait Ambulates with 2 walking sticks outside the home and no assistive devices in the home , wearing orthotics for past 9 months. Personal Factors Other Personal Factors That May Effect Chronicity of condition, Therapy/Recovery osteopenia, Lives with spouse who has cancer in one ear, so she does all cooking and she hangs onto objects to steady herself because she doesn't use walking sticks inside the house. PT-OP-C Subjective Start: 11/01/21 18:51 Freq: Status: Active Protocol: Document 11/21/21 09:04 LRN (Rec: 11/21/21 09:51 LRN [id number]) OP-PT Subjective Patient Comments Patient Comments Had company over weekend, so didn't get much ex in. PT-OP-D Balance Start: 11/01/21 18:51 Freq: Status: Active Protocol: Document 11/21/21 09:04 LRN (Rec: 11/21/21 09:51 LRN [id number]) Ho Balance Assessment Evaluation Sitting to Standing Ability Independent w/out Hands Unsupported Stance Safely- 2 minutes Sitting Unsupported, Feet on Floor Safely- 2 minutes Standing to Sitting Ability Safely, Minimal Hand Use Transfer Ability Safely, Minimal Hand Use Unsupported Stance- Eyes Closed Safely, 10 seconds Unsupported Stance- Eyes Open Independent, 1 minute Reaching Forward Standing Confidently, 10 inches Pick- Up Object From Floor Independent/Safe Look Behind Shoulder - Standing Shifts Weight Well Turning 360 Degrees Turns slowly, but safely Unsupported Stance, Alternating Feet on (I)- 8 Steps in > 20 secs Stair Unsupported Tandem Stance Balance Lost- Step/Stand Unilateral Leg Stance Unable,assist to not fall Total Score Ho Total Score (out of 56 points) 45 Ho Impairment Rating 1 to 19% Impaired (Score 45-55 ) PT-OP-E Functional Tests Start: 11/01/21 18:51 Freq: Status: Active Protocol: Document 11/10/21 13:01 LRN (Rec: 11/10/21 13:50 LRN [id number]) Functional Tests Five Times Sit to Stand Test Score 16 Comments 10x sit to developmental education instructor ~30 secs, pt lost balance bkwds on 10th time. PT-OP-G Mobility & Gait Start: 11/01/21 18:51 Freq: Status: Active Protocol: Document 11/07/21 13:03 LRN (Rec: 11/07/21 17:24 LRN [id number]) OP Gait Assessment Gait Gait Assistance Required: Independent Able to Maintain Weight Bearing Status Yes During Gait Gait Deviations General Gait Pattern Decreased Stride Length,Flexed Trunk,Lateral Trunk Lean Comments Gait Comments Assistive devices used: 2 walking sticks outside. No assistive device inside home. Has shorter step length with LLE. Stair Climbing Evaluation Comments Stair Climbing Comments Pt reports no problems with stair ambulation, uses 2 railings. PT-OP-J Posture/Palpation/Skin Start: 11/01/21 18:51 Freq: Status: Active Protocol: Document 11/07/21 13:03 LRN (Rec: 11/07/21 17:24 LRN [id number]) Posture Evaluation Position Standing Evaluation View Lateral Head/C-Spine Posture Forward Head L-Spine Posture Flattened Hip Posture (L) Flexed,(R) Flexed Comments Posture Comments Stands in hip flex 50-60 deg's hip flexion. PT-OP-M Strength Start: 11/01/21 18:51 Freq: Status: Active Protocol: Document 11/10/21 13:01 LRN (Rec: 11/10/21 13:50 LRN [id number]) Hip Strength Hip Manual Muscle Testing Right Flexion (L2) 5 Normal Extension (S1) 3+ Fair+ Abduction 3- Fair- External Rotation 3+ Fair+ Internal Rotation 2- Poor- Comments Assessed in supine, sidelie and prone on plinth. Left Flexion (L2) 5 Normal Extension (S1) 3+ Fair+ Abduction 2- Poor- External Rotation 3+ Fair+ Internal Rotation 2- Poor- Comments Assessed in supine, sidelie and prone on plinth. Knee Strength Knee Manual Muscle Testing Right Flexion (S2) 5 Normal Extension (L3) 4 Good Left Flexion (S2) 5 Normal Extension (L3) 4 Good Ankle/Foot Strength Ankle and Foot Manual Muscle Testing Right Dorsiflexion (L4) 5 Normal Plantarflexion (S1) 5 Normal Inversion 5 Normal Eversion (S1) 4 Good Left Dorsiflexion (L4) 5 Normal Plantarflexion (S1) 5 Normal Inversion 5 Normal Eversion (S1) 4+ Good+ PT-OP-Q Treatments Start: 11/01/21 18:51 Freq: Status: Active Protocol: Document 11/24/21 09:45 LRN (Rec: 11/24/21 10:33 LRN [id number]) Therapeutic Exercises Supine Exercises Hand to opp knee push Supine Exercise Name Kimberly hand to knee push Side bilateral Reps/Minutes 5' Comments No activation felt on R side, minimal on L side QL w/elbow digs Supine Exercise Name QL with elbow pressing into plinth, legs bent/strght Side bilateral Reps/Minutes 5' Comments Much phys & v cuing needed with legs stgt, legs bent QL Supine Exercise Name Anterior Pelvic Tilt before & after sti<>stand sets Side bilateral Reps/Minutes 10' Comments Much phys & v cuing needed with legs stgt, legs bent Clamshell Supine Exercise Name Clamshell (L sidelie) Side right Reps/Minutes 15' Comments Much phy & v cuing to keep anter pelvtilt and much trng for ant rot pelvs Sitting Exercises QL Sitting Exercise Name Arching of back Reps/Minutes 5 x 10 Comments Cuing to maintain symmetrical arch (L side weak). Sit to Stands Sitting Exercise Name Sit to Stands - extra time for pt to obtain best posture ( tailbone lift) Reps/Minutes 10x 2 Comments Cuing to not lean agst plinth to stand and extra back arch when upright. PT-OP-T Assessment and Plan Start: 11/01/21 18:51 Freq: Status: Active Protocol: Document 11/24/21 09:45 LRN (Rec: 11/24/21 10:33 LRN [id number]) Physical Therapy Assessment Goals Four Impairment Decreased stability with gait per TUG score 17 without asst device. Impairment TUG score 17 without asst device (60<80% impaired, score 16-17). TUG score 20 with walking sticks (100% impaired). Short Term Goal (STG) Improve TUG score without asst device to 15 (40<60% impaired , score 14-15), and with walking sticks to 18 (80<100% impaired, score 18-19). STG Duration 01/06/22 Assisted Goal (LTG) Imiprove stability with gait with pt able to report no use of support surfaces to manueuver around her kitchen during meal prep. LTG Duration 02/05/22 Three Impairment Decreased gait ability per DGI score of 14 Impairment DGI 14 (40-<60% impaired, score 10-14) Short Term Goal (STG) Improve safety with gait per DGI score of 19 or higher ( score 15-19 is 20<40% impaired , score 20-23 is 1<20% impaired). STG Duration 01/06/22 Assisted Goal (LTG) Pt will be able to walk more symmetrically and faster. LTG Duration 02/05/22 Two Impairment Decreased core and LE strength resulting in poor posture Short Term Goal (STG) Pt will be educated in general strengthening ex's of core & LE's. STG Duration 01/06/22 Assisted Goal (LTG) Pt will demonstrate improved standing posture resulting from improved LE and trunk strength. LTG Duration 02/05/22 One Impairment Pt lacks appropriate self care HEP. Short Term Goal (STG) Pt will be independent with a self care HEP. STG Duration 01/06/22 Treating And Pumping Supervisor Goal (LTG) Pt will be independent with a self care aquatic exercise program. (11/10/21: HEP issued: TB ankle EV & knee ext strengthening) LTG Duration 02/05/22 (11/10/21: Progressed ) Progress Towards Goals Progress Comments Pt able to perform anter pelv tilt 90% of time after training. Assessment Summary Assessment 90% of time pt is able to perform an anterior pelvic tilt after training with phys & v cuing. Pt is not able to do pelvic rotation after training. Pt exhibits poor body awareness in the pelvic region or there may be possible neural dysfunction. She appears to have no internal oblique activation in lower abdomen on the R side & minimal on the L side. Physical Therapy Plan Frequency and Duration Frequency of Treatment 2x/Week Plan of Care Start Date 11/07/21 Plan of Care End Date 02/05/22 Next Visit Focus/Plan Next Note Type Treatment Note Next Visit Plan Assess pt ability to perform anter pelv tilt & pelv rotation. Educate in general strengthening ex's of core & LE's. Self care HEP: postural ex's of trunk/hip ROM/strengthening , ankle strengthening. Ther Ex: sit to stand ex to improve LE/core strength. Gait: Improve gait stability and speed.
--- NOTE | 2021-11-29 10:32 | PT.OTN ---
Current Diagnoses Muscle weakness (generalized) (11/29/21) Unsteadiness on feet (11/29/21) Other abnormalities of gait and mobility (11/29/21) Unspecified abnormalities of gait and mobility (11/29/21) Abnormal posture (11/29/21) Physical Therapy Treatment Note PT-OP-A Visit Information Start: 11/01/21 18:51 Freq: Status: Active Protocol: Document 11/29/21 09:47 SP (Rec: 11/29/21 10:32 SP [id number]) Out-Patient Physical Therapy Visit Information Visit Information Visit Type Treatment Note Visit Start Time 09:47 Visit Stop Time 10:32 Total Visit Minutes 45 Visit Number 6 Number of SOCIAL DIRECTOR Visits 1 Evaluation Information Evaluation Date 11/07/21 Precautions Precautions Osteopenia (chiropractor won't touch her back), [place] TKA's ( 2011, 2010), arthritis, occasional falls. PT-OP-B Current Condition Start: 11/01/21 18:51 Freq: Status: Active Protocol: Document 11/07/21 13:03 LRN (Rec: 11/07/21 17:24 LRN [id number]) Current Condition History of Current Condition Onset Date 2-3 yrs ago Current Complaints Has to walk slowly and akwardly and has trouble getting up out of chair. History of Current Condition Past 2-3 yrs started to have walking and balance changes caused her to walk slower, which is an annoyance. Denies dizziness. Sometimes L knee pain. Fell a year ago going up one step tripping on the first step because didn't see it because the grass had grown over it. 1 step into house ( 4 step) and 14 steps inside the house. Prior Treatments and Tests None Future Testing and Treatments Planned None Treatment Goals Patient/Caregiver Goals Pt goal is to improve her muscle strength everywhere. Pt goal is to be able to walk more symmetrically, and faster . Pt agreeable to pool therapy in a month or two. Prior Functional Status Baseline Function- ADL's Independent Baseline Function- Mobility Independent Baseline Function- Gait Ambulated independently without assistive devices. Current Functional Impairments (Reported) Functional Limitations- ADL's Trying to cook uses counters to stabilize herself. Functional Limitations- Mobility/Gait Ambulates with 2 walking sticks outside the home and no assistive devices in the home , wearing orthotics for past 9 months. Personal Factors Other Personal Factors That May Effect Chronicity of condition, Therapy/Recovery osteopenia, Lives with spouse who has cancer in one ear, so she does all cooking and she hangs onto objects to steady herself because she doesn't use walking sticks inside the house. PT-OP-C Subjective Start: 11/01/21 18:51 Freq: Status: Active Protocol: Document 11/29/21 09:47 SP (Rec: 11/29/21 10:32 SP [id number]) OP-PT Subjective Patient Comments Patient Comments Pt states had R knee replaced while back and feels its weak get more strengthening. She requested to start doing more off the table activity, to feel stronger getting around, balance, machines today. PT-OP-D Balance Start: 11/01/21 18:51 Freq: Status: Active Protocol: Document 11/21/21 09:04 LRN (Rec: 11/21/21 09:51 LRN [id number]) Ho Balance Assessment Evaluation Sitting to Standing Ability Independent w/out Hands Unsupported Stance Safely- 2 minutes Sitting Unsupported, Feet on Floor Safely- 2 minutes Standing to Sitting Ability Safely, Minimal Hand Use Transfer Ability Safely, Minimal Hand Use Unsupported Stance- Eyes Closed Safely, 10 seconds Unsupported Stance- Eyes Open Independent, 1 minute Reaching Forward Standing Confidently, 10 inches Pick- Up Object From Floor Independent/Safe Look Behind Shoulder - Standing Shifts Weight Well Turning 360 Degrees Turns slowly, but safely Unsupported Stance, Alternating Feet on (I)- 8 Steps in > 20 secs Stair Unsupported Tandem Stance Balance Lost- Step/Stand Unilateral Leg Stance Unable,assist to not fall Total Score Ho Total Score (out of 56 points) 45 Ho Impairment Rating 1 to 19% Impaired (Score 45-55 ) PT-OP-E Functional Tests Start: 11/01/21 18:51 Freq: Status: Active Protocol: Document 11/10/21 13:01 LRN (Rec: 11/10/21 13:50 LRN [id number]) Functional Tests Five Times Sit to Stand Test Score 16 Comments 10x sit to sanitary engineering teacher ~30 secs, pt lost balance bkwds on 10th time. PT-OP-G Mobility & Gait Start: 11/01/21 18:51 Freq: Status: Active Protocol: Document 11/07/21 13:03 LRN (Rec: 04/04/22 17:24 LRN [id number]) OP Gait Assessment Gait Gait Assistance Required: Independent Able to Maintain Weight Bearing Status Yes During Gait Gait Deviations General Gait Pattern Decreased Stride Length,Flexed Trunk,Lateral Trunk Lean Comments Gait Comments Assistive devices used: 2 walking sticks outside. No assistive device inside home. Has shorter step length with LLE. Stair Climbing Evaluation Comments Stair Climbing Comments Pt reports no problems with stair ambulation, uses 2 railings. PT-OP-J Posture/Palpation/Skin Start: 11/01/21 18:51 Freq: Status: Active Protocol: Document 11/07/21 13:03 LRN (Rec: 11/07/21 17:24 LRN [id number]) Posture Evaluation Position Standing Evaluation View Lateral Head/C-Spine Posture Forward Head L-Spine Posture Flattened Hip Posture (L) Flexed,(R) Flexed Comments Posture Comments Stands in hip flex 50-60 deg's hip flexion. PT-OP-M Strength Start: 11/01/21 18:51 Freq: Status: Active Protocol: Document 11/10/21 13:01 LRN (Rec: 11/10/21 13:50 LRN [id number]) Hip Strength Hip Manual Muscle Testing Right Flexion (L2) 5 Normal Extension (S1) 3+ Fair+ Abduction 3- Fair- External Rotation 3+ Fair+ Internal Rotation 2- Poor- Comments Assessed in supine, sidelie and prone on plinth. Left Flexion (L2) 5 Normal Extension (S1) 3+ Fair+ Abduction 2- Poor- External Rotation 3+ Fair+ Internal Rotation 2- Poor- Comments Assessed in supine, sidelie and prone on plinth. Knee Strength Knee Manual Muscle Testing Right Flexion (S2) 5 Normal Extension (L3) 4 Good Left Flexion (S2) 5 Normal Extension (L3) 4 Good Ankle/Foot Strength Ankle and Foot Manual Muscle Testing Right Dorsiflexion (L4) 5 Normal Plantarflexion (S1) 5 Normal Inversion 5 Normal Eversion (S1) 4 Good Left Dorsiflexion (L4) 5 Normal Plantarflexion (S1) 5 Normal Inversion 5 Normal Eversion (S1) 4+ Good+ PT-OP-Q Treatments Start: 11/01/21 18:51 Freq: Status: Active Protocol: Document 11/29/21 09:47 SP (Rec: 11/29/21 10:32 SP [id number]) Cardio Equipment Recumbent Stepper (Sci-Fit) Duration (Minutes) 6 Resistance 2 Seat Position 9 ( next biodex) Other 55 RPM, miles Gym Equipment Shuttle Balance red clips Details WBOS Comments wt shift and stationary stance Next add corner balance Therapeutic Exercises Sitting Exercises Knee Ext Sitting Exercise Name Knee ext strengthening- added back in HEP Side bilateral Equipment Used Lev 2 TB loop Reps/Minutes 15x each Comments little time find proper strength Sit to Stands Sitting Exercise Name Sit to Stands - extra time for pt to obtain best posture ( tailbone lift) Reps/Minutes 10x 2 Comments Cuing to not lean agst plinth to stand and extra back arch when upright. Self-Care/Home Management Treatment Education Patient Education Home Exercise Program Other Education Added resisted knee ext back into HEP and STS for functional strengthening. Next tx add corner balance for stability/core and posture to improve carryover gait. PT-OP-T Assessment and Plan Start: 11/01/21 18:51 Freq: Status: Active Protocol: Document 11/29/21 09:47 SP (Rec: 11/29/21 10:32 SP [id number]) Physical Therapy Assessment Goals Four Impairment Decreased stability with gait per TUG score 17 without asst device. Impairment TUG score 17 without asst device (60<80% impaired, score 16-17). TUG score 20 with walking sticks (100% impaired). Short Term Goal (STG) Improve TUG score without asst device to 15 (40<60% impaired , score 14-15), and with walking sticks to 18 (80<100% impaired, score 18-19). STG Duration 01/06/22 [facility] Goal (LTG) Imiprove stability with gait with pt able to report no use of support surfaces to manueuver around her kitchen during meal prep. LTG Duration 02/05/22 Three Impairment Decreased gait ability per DGI score of 14 Impairment DGI 14 (40-<60% impaired, score 10-14) Short Term Goal (STG) Improve safety with gait per DGI score of 19 or higher ( score 15-19 is 20<40% impaired , score 20-23 is 1<20% impaired). STG Duration 01/06/22 Signals Intelligence Analysis Manager Goal (LTG) Pt will be able to walk more symmetrically and faster. LTG Duration 02/05/22 Two Impairment Decreased core and LE strength resulting in poor posture Short Term Goal (STG) Pt will be educated in general strengthening ex's of core & LE's. STG Duration 01/06/22 Signals Intelligence Analysis Manager Goal (LTG) Pt will demonstrate improved standing posture resulting from improved LE and trunk strength. LTG Duration 02/05/22 One Impairment Pt lacks appropriate self care HEP. Short Term Goal (STG) Pt will be independent with a self care HEP. STG Duration 01/06/22 [facility] Goal (LTG) Pt will be independent with a self care aquatic exercise program. (11/10/21: HEP issued: TB ankle EV & knee ext strengthening) LTG Duration 02/05/22 (11/10/21: Progressed ) Assessment Summary Assessment Pt improved core and anterior pelvic tilt during sitting and ableto complete added LAQ against resistance to add back in for HEP at home. Progressed functional baland on shuttle recovery WBOS with cues for trunk alignment, stated feels core and challenged balance better worked. Ended wtih bike for cardio and strengthening to start as warm up in future txs . Physical Therapy Plan Frequency and Duration Frequency of Treatment 2x/Week Plan of Care Start Date 11/07/21 Plan of Care End Date 02/05/22 Therapeutic Interventions Therapeutic Interventions Aquatic Therapy,Balance Training,Gait Training,Home Exercise Program,Neuromuscular Re-education,Patient/ Caregiver Education,Self-Care/ Home Management,Therapeutic Activities,Therapeutic Exercises Modalities Cold Pack/Ice Massage,Hot Packs Next Visit Focus/Plan Next Note Type Treatment Note Next Visit Plan Warm up biodex, corner balance and shuttle balance. HEP review. Assess pt ability to perform anter pelv tilt & pelv rotation. Educate in general strengthening ex's of core & LE's. Self care HEP: postural ex's of trunk/hip ROM/strengthening , ankle strengthening. Ther Ex: sit to stand ex to improve LE/core strength. Gait: Improve gait stability and speed.
--- NOTE | 2021-12-01 09:00 | PT.OTN ---
Current Diagnoses Muscle weakness (generalized) (12/01/21) Unsteadiness on feet (12/01/21) Other abnormalities of gait and mobility (12/01/21) Unspecified abnormalities of gait and mobility (12/01/21) Abnormal posture (12/01/21) Physical Therapy Treatment Note PT-OP-A Visit Information Start: 11/01/21 18:51 Freq: Status: Active Protocol: Document 12/01/21 08:16 SP (Rec: 12/01/21 09:02 SP [id number]) Out-Patient Physical Therapy Visit Information Visit Information Visit Type Treatment Note Visit Start Time 08:16 Visit Stop Time 09:00 Total Visit Minutes 44 Visit Number 7 Number of IT TEACHER Visits 2 Evaluation Information Evaluation Date 11/07/21 Precautions Precautions Osteopenia (chiropractor won't touch her back), [place] TKA's ( 2011, 2010), arthritis, occasional falls. PT-OP-B Current Condition Start: 11/01/21 18:51 Freq: Status: Active Protocol: Document 11/07/21 13:03 LRN (Rec: 11/07/21 17:24 LRN [id number]) Current Condition History of Current Condition Onset Date 2-3 yrs ago Current Complaints Has to walk slowly and akwardly and has trouble getting up out of chair. History of Current Condition Past 2-3 yrs started to have walking and balance changes caused her to walk slower, which is an annoyance. Denies dizziness. Sometimes L knee pain. Fell a year ago going up one step tripping on the first step because didn't see it because the grass had grown over it. 1 step into house ( 4 step) and 14 steps inside the house. Prior Treatments and Tests None Future Testing and Treatments Planned None Treatment Goals Patient/Caregiver Goals Pt goal is to improve her muscle strength everywhere. Pt goal is to be able to walk more symmetrically, and faster . Pt agreeable to pool therapy in a month or two. Prior Functional Status Baseline Function- ADL's Independent Baseline Function- Mobility Independent Baseline Function- Gait Ambulated independently without assistive devices. Current Functional Impairments (Reported) Functional Limitations- ADL's Trying to cook uses counters to stabilize herself. Functional Limitations- Mobility/Gait Ambulates with 2 walking sticks outside the home and no assistive devices in the home , wearing orthotics for past 9 months. Personal Factors Other Personal Factors That May Effect Chronicity of condition, Therapy/Recovery osteopenia, Lives with spouse who has cancer in one ear, so she does all cooking and she hangs onto objects to steady herself because she doesn't use walking sticks inside the house. PT-OP-C Subjective Start: 11/01/21 18:51 Freq: Status: Active Protocol: Document 12/01/21 08:16 SP (Rec: 12/01/21 09:02 SP [id number]) OP-PT Subjective Patient Comments Patient Comments Pt stated felt ok after last tx. She stated went walking over the weekend over uneven surfaces top [facility] to see wild [place] cid and went slow. PT-OP-D Balance Start: 11/01/21 18:51 Freq: Status: Active Protocol: Document 11/21/21 09:04 LRN (Rec: 11/21/21 09:51 LRN [id number]) Ho Balance Assessment Evaluation Sitting to Standing Ability Independent w/out Hands Unsupported Stance Safely- 2 minutes Sitting Unsupported, Feet on Floor Safely- 2 minutes Standing to Sitting Ability Safely, Minimal Hand Use Transfer Ability Safely, Minimal Hand Use Unsupported Stance- Eyes Closed Safely, 10 seconds Unsupported Stance- Eyes Open Independent, 1 minute Reaching Forward Standing Confidently, 10 inches Pick- Up Object From Floor Independent/Safe Look Behind Shoulder - Standing Shifts Weight Well Turning 360 Degrees Turns slowly, but safely Unsupported Stance, Alternating Feet on (I)- 8 Steps in > 20 secs Stair Unsupported Tandem Stance Balance Lost- Step/Stand Unilateral Leg Stance Unable,assist to not fall Total Score Ho Total Score (out of 56 points) 45 Ho Impairment Rating 1 to 19% Impaired (Score 45-55 ) PT-OP-E Functional Tests Start: 11/01/21 18:51 Freq: Status: Active Protocol: Document 12/01/21 08:16 SP (Rec: 12/01/21 11:52 SP [id number]) Functional Tests Timed Up and Go (TUG) Score 19s, 17s, 23s Comments cued tall posture, use B trek poles TUG Impairment Rating 80 to <100% Impaired (Score 18 -19) PT-OP-G Mobility & Gait Start: 11/01/21 18:51 Freq: Status: Active Protocol: Document 11/07/21 13:03 LRN (Rec: 04/04/22 17:24 LRN [id number]) OP Gait Assessment Gait Gait Assistance Required: Independent Able to Maintain Weight Bearing Status Yes During Gait Gait Deviations General Gait Pattern Decreased Stride Length,Flexed Trunk,Lateral Trunk Lean Comments Gait Comments Assistive devices used: 2 walking sticks outside. No assistive device inside home. Has shorter step length with LLE. Stair Climbing Evaluation Comments Stair Climbing Comments Pt reports no problems with stair ambulation, uses 2 railings. PT-OP-J Posture/Palpation/Skin Start: 11/01/21 18:51 Freq: Status: Active Protocol: Document 11/07/21 13:03 LRN (Rec: 11/07/21 17:24 LRN [id number]) Posture Evaluation Position Standing Evaluation View Lateral Head/C-Spine Posture Forward Head L-Spine Posture Flattened Hip Posture (L) Flexed,(R) Flexed Comments Posture Comments Stands in hip flex 50-60 deg's hip flexion. PT-OP-M Strength Start: 11/01/21 18:51 Freq: Status: Active Protocol: Document 11/10/21 13:01 LRN (Rec: 11/10/21 13:50 LRN [id number]) Hip Strength Hip Manual Muscle Testing Right Flexion (L2) 5 Normal Extension (S1) 3+ Fair+ Abduction 3- Fair- External Rotation 3+ Fair+ Internal Rotation 2- Poor- Comments Assessed in supine, sidelie and prone on plinth. Left Flexion (L2) 5 Normal Extension (S1) 3+ Fair+ Abduction 2- Poor- External Rotation 3+ Fair+ Internal Rotation 2- Poor- Comments Assessed in supine, sidelie and prone on plinth. Knee Strength Knee Manual Muscle Testing Right Flexion (S2) 5 Normal Extension (L3) 4 Good Left Flexion (S2) 5 Normal Extension (L3) 4 Good Ankle/Foot Strength Ankle and Foot Manual Muscle Testing Right Dorsiflexion (L4) 5 Normal Plantarflexion (S1) 5 Normal Inversion 5 Normal Eversion (S1) 4 Good Left Dorsiflexion (L4) 5 Normal Plantarflexion (S1) 5 Normal Inversion 5 Normal Eversion (S1) 4+ Good+ PT-OP-Q Treatments Start: 11/01/21 18:51 Freq: Status: Active Protocol: Document 12/01/21 08:16 SP (Rec: 12/01/21 09:02 SP [id number]) Cardio Equipment Recumbent Elliptical (Biodex) Duration (Minutes) 6 Resistance 2 Seat Position see 6 Other UEs/LEs 566 ft, 50 RPM Gym Equipment Shuttle Balance red clips Details WBOS, stagger wide stance Comments wt shift into BLE f/b/side, needed more into RLE and trunk posture R over pelvis. Cued tall posture, anterior tilt to improve functional posture, core and hip facilitation strengthening. Next add corner balance for carryover. Therapeutic Exercises Sitting Exercises band walk Sitting Exercise Name added HEP Resistance AROM side stepping Equipment Used contact rail 1 UE book on head Reps/Minutes 10 ft x3 laps Comments cued tall posture, pelvic ant tilt, slow eccentric trail leg Knee Ext Sitting Exercise Name Knee ext strengthening- added back in HEP Side bilateral Equipment Used Lev 2 TB loop Reps/Minutes 2x10 Comments good form and pacing Neuro Re-Education Treatment Balance Activities TUG Surface frirm Equipment B walk sticks Reps/Duration x3 Comments 19s, uses stick to ascend and arm rest to sit, 17s, 23S Self-Care/Home Management Treatment Education Patient Education Body Mechanics,Posture Other Education Intiated side stepping at rail , seated LAQ review for home self posture, core/ hip abd strengthening carryover. PT-OP-T Assessment and Plan Start: 11/01/21 18:51 Freq: Status: Active Protocol: Document 12/01/21 08:16 SP (Rec: 12/01/21 09:02 SP [id number]) Physical Therapy Assessment Other Concerns Barriers to Rehabilitation hronicity of condition. Goals Four Impairment Decreased stability with gait per TUG score 17 without asst device. Impairment TUG score 17 without asst device (60<80% impaired, score 16-17). TUG score 20 with walking sticks (100% impaired). Short Term Goal (STG) Improve TUG score without asst device to 15 (40<60% impaired , score 14-15), and with walking sticks to 18 (80<100% impaired, score 18-19). STG Duration 01/06/22 Longterm Goal (LTG) Imiprove stability with gait with pt able to report no use of support surfaces to manueuver around her kitchen during meal prep. LTG Duration 02/05/22 Three Impairment Decreased gait ability per DGI score of 14 Impairment DGI 14 (40-<60% impaired, score 10-14) Short Term Goal (STG) Improve safety with gait per DGI score of 19 or higher ( score 15-19 is 20<40% impaired , score 20-23 is 1<20% impaired). STG Duration 01/06/22 Longterm Goal (LTG) Pt will be able to walk more symmetrically and faster. LTG Duration 02/05/22 Two Impairment Decreased core and LE strength resulting in poor posture Short Term Goal (STG) Pt will be educated in general strengthening ex's of core & LE's. STG Duration 01/06/22 Longterm Goal (LTG) Pt will demonstrate improved standing posture resulting from improved LE and trunk strength. LTG Duration 02/05/22 One Impairment Pt lacks appropriate self care HEP. Short Term Goal (STG) Pt will be independent with a self care HEP. STG Duration 01/06/22 [employer] Of [employer] Goal (LTG) Pt will be independent with a self care aquatic exercise program. (11/10/21: HEP issued: TB ankle EV & knee ext strengthening) LTG Duration 02/05/22 (11/10/21: Progressed ) Progress Towards Goals Progress Comments Pt able to perform anter pelv tilt 90% of time after training. Assessment Summary Assessment Pt improved trunk corrections wtih cuing shuttle balance, able to few head turns and more awareness of trunk posture and pelvic tilt. Pt able to carryover duirng side stepping with same cues book on head worked to help self correct better. Gave for home. Physical Therapy Plan Frequency and Duration Frequency of Treatment 2x/Week Plan of Care Start Date 11/07/21 Plan of Care End Date 02/05/22 Therapeutic Interventions Therapeutic Interventions Aquatic Therapy,Balance Training,Gait Training,Home Exercise Program,Neuromuscular Re-education,Patient/ Caregiver Education,Self-Care/ Home Management,Therapeutic Activities,Therapeutic Exercises Modalities Cold Pack/Ice Massage,Hot Packs Next Visit Focus/Plan Next Note Type Treatment Note Next Visit Plan Warm up biodex, corner balance and shuttle balance. HEP review. Assess pt ability to perform anter pelv tilt & pelv rotation. Educate in general strengthening ex's of core & LE's. Self care HEP: postural ex's of trunk/hip ROM/strengthening , ankle strengthening. Ther Ex: sit to stand ex to improve LE/core strength. Gait: Improve gait stability and speed.
--- NOTE | 2021-12-08 09:45 | PT.OTN ---
Current Diagnoses Muscle weakness (generalized) (12/08/21) Unsteadiness on feet (12/08/21) Other abnormalities of gait and mobility (12/08/21) Unspecified abnormalities of gait and mobility (12/08/21) Abnormal posture (12/08/21) Physical Therapy Treatment Note PT-OP-A Visit Information Start: 11/01/21 18:51 Freq: Status: Active Protocol: Document 12/08/21 09:15 SP (Rec: 12/08/21 09:51 SP [id number]) Out-Patient Physical Therapy Visit Information Visit Information Visit Type Treatment Note Visit Note 15 min late for appt Visit Start Time 09:15 Visit Stop Time 09:45 Total Visit Minutes 30 Visit Number 8 Number of TREATMENT PLANT OPERATOR Visits 3 Evaluation Information Evaluation Date 11/07/21 Precautions Precautions Osteopenia (chiropractor won't touch her back), [place] TKA's ( 2011, 2010), arthritis, occasional falls. PT-OP-B Current Condition Start: 11/01/21 18:51 Freq: Status: Active Protocol: Document 11/07/21 13:03 LRN (Rec: 11/07/21 17:24 LRN [id number]) Current Condition History of Current Condition Onset Date 2-3 yrs ago Current Complaints Has to walk slowly and akwardly and has trouble getting up out of chair. History of Current Condition Past 2-3 yrs started to have walking and balance changes caused her to walk slower, which is an annoyance. Denies dizziness. Sometimes L knee pain. Fell a year ago going up one step tripping on the first step because didn't see it because the grass had grown over it. 1 step into house ( 4 step) and 14 steps inside the house. Prior Treatments and Tests None Future Testing and Treatments Planned None Treatment Goals Patient/Caregiver Goals Pt goal is to improve her muscle strength everywhere. Pt goal is to be able to walk more symmetrically, and faster . Pt agreeable to pool therapy in a month or two. Prior Functional Status Baseline Function- ADL's Independent Baseline Function- Mobility Independent Baseline Function- Gait Ambulated independently without assistive devices. Current Functional Impairments (Reported) Functional Limitations- ADL's Trying to cook uses counters to stabilize herself. Functional Limitations- Mobility/Gait Ambulates with 2 walking sticks outside the home and no assistive devices in the home , wearing orthotics for past 9 months. Personal Factors Other Personal Factors That May Effect Chronicity of condition, Therapy/Recovery osteopenia, Lives with spouse who has cancer in one ear, so she does all cooking and she hangs onto objects to steady herself because she doesn't use walking sticks inside the house. PT-OP-C Subjective Start: 11/01/21 18:51 Freq: Status: Active Protocol: Document 12/08/21 09:15 SP (Rec: 12/08/21 09:51 SP [id number]) OP-PT Subjective Patient Comments Patient Comments Pt states feels better about HEP and wants to work on balance today. PT-OP-D Balance Start: 11/01/21 18:51 Freq: Status: Active Protocol: Document 11/21/21 09:04 LRN (Rec: 11/21/21 09:51 LRN [id number]) Ho Balance Assessment Evaluation Sitting to Standing Ability Independent w/out Hands Unsupported Stance Safely- 2 minutes Sitting Unsupported, Feet on Floor Safely- 2 minutes Standing to Sitting Ability Safely, Minimal Hand Use Transfer Ability Safely, Minimal Hand Use Unsupported Stance- Eyes Closed Safely, 10 seconds Unsupported Stance- Eyes Open Independent, 1 minute Reaching Forward Standing Confidently, 10 inches Pick- Up Object From Floor Independent/Safe Look Behind Shoulder - Standing Shifts Weight Well Turning 360 Degrees Turns slowly, but safely Unsupported Stance, Alternating Feet on (I)- 8 Steps in > 20 secs Stair Unsupported Tandem Stance Balance Lost- Step/Stand Unilateral Leg Stance Unable,assist to not fall Total Score Ho Total Score (out of 56 points) 45 Ho Impairment Rating 1 to 19% Impaired (Score 45-55 ) PT-OP-E Functional Tests Start: 11/01/21 18:51 Freq: Status: Active Protocol: Document 12/08/21 09:15 SP (Rec: 12/08/21 12:15 SP [id number]) Functional Tests Dynamic Gait Index (DGI) Score 16/24 DGI Impairment Rating 20 to <40% Impaired (Score 15- 19) PT-OP-G Mobility & Gait Start: 11/01/21 18:51 Freq: Status: Active Protocol: Document 11/07/21 13:03 LRN (Rec: 11/07/21 17:24 LRN [id number]) OP Gait Assessment Gait Gait Assistance Required: Independent Able to Maintain Weight Bearing Status Yes During Gait Gait Deviations General Gait Pattern Decreased Stride Length,Flexed Trunk,Lateral Trunk Lean Comments Gait Comments Assistive devices used: 2 walking sticks outside. No assistive device inside home. Has shorter step length with LLE. Stair Climbing Evaluation Comments Stair Climbing Comments Pt reports no problems with stair ambulation, uses 2 railings. PT-OP-J Posture/Palpation/Skin Start: 11/01/21 18:51 Freq: Status: Active Protocol: Document 11/07/21 13:03 LRN (Rec: 11/07/21 17:24 LRN [id number]) Posture Evaluation Position Standing Evaluation View Lateral Head/C-Spine Posture Forward Head L-Spine Posture Flattened Hip Posture (L) Flexed,(R) Flexed Comments Posture Comments Stands in hip flex 50-60 deg's hip flexion. PT-OP-M Strength Start: 11/01/21 18:51 Freq: Status: Active Protocol: Document 11/10/21 13:01 LRN (Rec: 11/10/21 13:50 LRN [id number]) Hip Strength Hip Manual Muscle Testing Right Flexion (L2) 5 Normal Extension (S1) 3+ Fair+ Abduction 3- Fair- External Rotation 3+ Fair+ Internal Rotation 2- Poor- Comments Assessed in supine, sidelie and prone on plinth. Left Flexion (L2) 5 Normal Extension (S1) 3+ Fair+ Abduction 2- Poor- External Rotation 3+ Fair+ Internal Rotation 2- Poor- Comments Assessed in supine, sidelie and prone on plinth. Knee Strength Knee Manual Muscle Testing Right Flexion (S2) 5 Normal Extension (L3) 4 Good Left Flexion (S2) 5 Normal Extension (L3) 4 Good Ankle/Foot Strength Ankle and Foot Manual Muscle Testing Right Dorsiflexion (L4) 5 Normal Plantarflexion (S1) 5 Normal Inversion 5 Normal Eversion (S1) 4 Good Left Dorsiflexion (L4) 5 Normal Plantarflexion (S1) 5 Normal Inversion 5 Normal Eversion (S1) 4+ Good+ PT-OP-Q Treatments Start: 11/01/21 18:51 Freq: Status: Active Protocol: Document 12/08/21 09:15 SP (Rec: 12/08/21 12:15 SP [id number]) Neuro Re-Education Treatment Balance Activities DGI Details Comments see scanned and copy testing. Self-Care/Home Management Treatment Education Patient Education Posture Other Education added corner balance PT-OP-T Assessment and Plan Start: 11/01/21 18:51 Freq: Status: Active Protocol: Document 12/08/21 09:15 SP (Rec: 12/08/21 09:51 SP [id number]) Physical Therapy Assessment Goals Four Impairment Decreased stability with gait per TUG score 17 without asst device. Impairment TUG score 17 without asst device (60<80% impaired, score 16-17). TUG score 20 with walking sticks (100% impaired). Short Term Goal (STG) Improve TUG score without asst device to 15 (40<60% impaired , score 14-15), and with walking sticks to 18 (80<100% impaired, score 18-19). 12/01/21: TUs, 19s, 23s. STG Duration 01/06/22 Progressing 12/01/21 Long-Term Goal (LTG) Imiprove stability with gait with pt able to report no use of support surfaces to manueuver around her kitchen during meal prep. LTG Duration 02/05/22 Three Impairment Decreased gait ability per DGI score of 14 Impairment DGI 14 (40-<60% impaired, score 10-14) Short Term Goal (STG) Improve safety with gait per DGI score of 19 or higher ( score 15-19 is 20<40% impaired , score 20-23 is 1<20% impaired). 12/08/21: 20-40 % impaired , fallrisk. STG Duration 01/06/22 progressin12/08/21 Long-Term Goal (LTG) Pt will be able to walk more symmetrically and faster. LTG Duration 02/05/22 Two Impairment Decreased core and LE strength resulting in poor posture Short Term Goal (STG) Pt will be educated in general strengthening ex's of core & LE's. STG Duration 01/06/22 Long-Term Goal (LTG) Pt will demonstrate improved standing posture resulting from improved LE and trunk strength. LTG Duration 02/05/22 One Impairment Pt lacks appropriate self care HEP. Short Term Goal (STG) Pt will be independent with a self care HEP. STG Duration 01/06/22 Long-Term Goal (LTG) Pt will be independent with a self care aquatic exercise program. (11/10/21: HEP issued: TB ankle EV & knee ext strengthening) 12/01/21: side stepping. 12/08/21: added corner balance to HEP LTG Duration 02/05/22 (12/11/21: Progressed ) Assessment Summary Assessment Pt improved balance able to complete EC up to 30s NBOS and stagger stance incorner added to HEP. DGI , understands is fall risk. Improved postural corrections during corner balance. Physical Therapy Plan Frequency and Duration Frequency of Treatment 2x/Week Plan of Care Start Date 11/07/21 Plan of Care End Date 02/05/22 Therapeutic Interventions Therapeutic Interventions Aquatic Therapy,Balance Training,Gait Training,Home Exercise Program,Neuromuscular Re-education,Patient/ Caregiver Education,Self-Care/ Home Management,Therapeutic Activities,Therapeutic Exercises Modalities Cold Pack/Ice Massage,Hot Packs Next Visit Focus/Plan Next Note Type Treatment Note Next Visit Plan Warm up biodex, corner balance and shuttle balance. HEP review. Assess pt ability to perform anter pelv tilt & pelv rotation. Educate in general strengthening ex's of core & LE's. Self care HEP: postural ex's of trunk/hip ROM/strengthening , ankle strengthening. Ther Ex: sit to stand ex to improve LE/core strength. Gait: Improve gait stability and speed.
--- NOTE | 2021-12-14 09:47 | PT.OTN ---
Current Diagnoses Muscle weakness (generalized) (12/14/21) Unsteadiness on feet (12/14/21) Other abnormalities of gait and mobility (12/14/21) Unspecified abnormalities of gait and mobility (12/14/21) Abnormal posture (12/14/21) Physical Therapy Treatment Note PT-OP-A Visit Information Start: 11/01/21 18:51 Freq: Status: Active Protocol: Document 12/14/21 09:06 SP (Rec: 12/14/21 09:49 SP [id number]) Out-Patient Physical Therapy Visit Information Visit Information Visit Type Treatment Note Visit Start Time 09:06 Visit Stop Time 09:47 Total Visit Minutes 41 Visit Number 9 Number of FIT MODEL Visits 4 Evaluation Information Evaluation Date 11/07/21 Precautions Precautions Osteopenia (chiropractor won't touch her back), [place] TKA's ( 2011, 2010), arthritis, occasional falls. PT-OP-B Current Condition Start: 11/01/21 18:51 Freq: Status: Active Protocol: Document 11/07/21 13:03 LRN (Rec: 11/07/21 17:24 LRN [id number]) Current Condition History of Current Condition Onset Date 2-3 yrs ago Current Complaints Has to walk slowly and akwardly and has trouble getting up out of chair. History of Current Condition Past 2-3 yrs started to have walking and balance changes caused her to walk slower, which is an annoyance. Denies dizziness. Sometimes L knee pain. Fell a year ago going up one step tripping on the first step because didn't see it because the grass had grown over it. 1 step into house ( 4 step) and 14 steps inside the house. Prior Treatments and Tests None Future Testing and Treatments Planned None Treatment Goals Patient/Caregiver Goals Pt goal is to improve her muscle strength everywhere. Pt goal is to be able to walk more symmetrically, and faster . Pt agreeable to pool therapy in a month or two. Prior Functional Status Baseline Function- ADL's Independent Baseline Function- Mobility Independent Baseline Function- Gait Ambulated independently without assistive devices. Current Functional Impairments (Reported) Functional Limitations- ADL's Trying to cook uses counters to stabilize herself. Functional Limitations- Mobility/Gait Ambulates with 2 walking sticks outside the home and no assistive devices in the home , wearing orthotics for past 9 months. Personal Factors Other Personal Factors That May Effect Chronicity of condition, Therapy/Recovery osteopenia, Lives with spouse who has cancer in one ear, so she does all cooking and she hangs onto objects to steady herself because she doesn't use walking sticks inside the house. PT-OP-C Subjective Start: 11/01/21 18:51 Freq: Status: Active Protocol: Document 12/14/21 09:06 SP (Rec: 12/14/21 09:49 SP [id number]) OP-PT Subjective Patient Comments Patient Comments Pt stated trying to stay walking tall and do postural ex, balance, strengthening athome. PT-OP-D Balance Start: 11/01/21 18:51 Freq: Status: Active Protocol: Document 11/21/21 09:04 LRN (Rec: 11/21/21 09:51 LRN [id number]) Ho Balance Assessment Evaluation Sitting to Standing Ability Independent w/out Hands Unsupported Stance Safely- 2 minutes Sitting Unsupported, Feet on Floor Safely- 2 minutes Standing to Sitting Ability Safely, Minimal Hand Use Transfer Ability Safely, Minimal Hand Use Unsupported Stance- Eyes Closed Safely, 10 seconds Unsupported Stance- Eyes Open Independent, 1 minute Reaching Forward Standing Confidently, 10 inches Pick- Up Object From Floor Independent/Safe Look Behind Shoulder - Standing Shifts Weight Well Turning 360 Degrees Turns slowly, but safely Unsupported Stance, Alternating Feet on (I)- 8 Steps in > 20 secs Stair Unsupported Tandem Stance Balance Lost- Step/Stand Unilateral Leg Stance Unable,assist to not fall Total Score Ho Total Score (out of 56 points) 45 Ho Impairment Rating 1 to 19% Impaired (Score 45-55 ) PT-OP-E Functional Tests Start: 11/01/21 18:51 Freq: Status: Active Protocol: Document 12/14/21 09:06 SP (Rec: 12/14/21 09:49 SP [id number]) Functional Tests 6 Minute Walk Test Distance 606 ft= 1ft/sec Device Used B trek poles Comments cued posture, foot clearance and stride Timed Up and Go (TUG) Score 20s, 18s Comments posture, speed TUG Impairment Rating 80 to <100% Impaired (Score 18 -19) PT-OP-G Mobility & Gait Start: 11/01/21 18:51 Freq: Status: Active Protocol: Document 11/07/21 13:03 LRN (Rec: 11/07/21 17:24 LRN [id number]) OP Gait Assessment Gait Gait Assistance Required: Independent Able to Maintain Weight Bearing Status Yes During Gait Gait Deviations General Gait Pattern Decreased Stride Length,Flexed Trunk,Lateral Trunk Lean Comments Gait Comments Assistive devices used: 2 walking sticks outside. No assistive device inside home. Has shorter step length with LLE. Stair Climbing Evaluation Comments Stair Climbing Comments Pt reports no problems with stair ambulation, uses 2 railings. PT-OP-J Posture/Palpation/Skin Start: 11/01/21 18:51 Freq: Status: Active Protocol: Document 11/07/21 13:03 LRN (Rec: 11/07/21 17:24 LRN [id number]) Posture Evaluation Position Standing Evaluation View Lateral Head/C-Spine Posture Forward Head L-Spine Posture Flattened Hip Posture (L) Flexed,(R) Flexed Comments Posture Comments Stands in hip flex 50-60 deg's hip flexion. PT-OP-M Strength Start: 11/01/21 18:51 Freq: Status: Active Protocol: Document 11/10/21 13:01 LRN (Rec: 11/10/21 13:50 LRN [id number]) Hip Strength Hip Manual Muscle Testing Right Flexion (L2) 5 Normal Extension (S1) 3+ Fair+ Abduction 3- Fair- External Rotation 3+ Fair+ Internal Rotation 2- Poor- Comments Assessed in supine, sidelie and prone on plinth. Left Flexion (L2) 5 Normal Extension (S1) 3+ Fair+ Abduction 2- Poor- External Rotation 3+ Fair+ Internal Rotation 2- Poor- Comments Assessed in supine, sidelie and prone on plinth. Knee Strength Knee Manual Muscle Testing Right Flexion (S2) 5 Normal Extension (L3) 4 Good Left Flexion (S2) 5 Normal Extension (L3) 4 Good Ankle/Foot Strength Ankle and Foot Manual Muscle Testing Right Dorsiflexion (L4) 5 Normal Plantarflexion (S1) 5 Normal Inversion 5 Normal Eversion (S1) 4 Good Left Dorsiflexion (L4) 5 Normal Plantarflexion (S1) 5 Normal Inversion 5 Normal Eversion (S1) 4+ Good+ PT-OP-Q Treatments Start: 11/01/21 18:51 Freq: Status: Active Protocol: Document 12/14/21 09:06 SP (Rec: 12/14/21 09:49 SP [id number]) Therapeutic Exercises Supine Exercises Reverse Clamshell Supine Exercise Name Reverse Clamshell - hold for next treatment. Side bilateral Resistance discussed continue perform Clamshell Supine Exercise Name Clamshell (L sidelie) Side right Resistance discussed continue perform Reps/Minutes 15' Comments Much phy & v cuing to keep anter pelvtilt and much trng for ant rot pelvs SLR Supine Exercise Name SLR Side bilateral Resistance discussed continue perform Reps/Minutes 15x each Comments Cuing needed for lift range and core stab Sidelying Exercises Clamshell Sidelying Exercise Name Clamshell w/topPplvic anter rot Resistance discussed continue Reps/Minutes 11' R knee lift, 9' L knee lift Comments Much phy & v cuing to keep pelvic stable. Pt not able to keep hips stable Sitting Exercises band walk Sitting Exercise Name reviewed HEP Resistance AROM side stepping Equipment Used contact rail 1 UE book on head Reps/Minutes 10 ft x2 laps Comments cued tall posture, pelvic ant tilt, slow eccentric clear trail leg Knee Ext Sitting Exercise Name Knee ext strengthening- added back in HEP Side bilateral Resistance discussed continue Equipment Used Lev 2 TB loop Reps/Minutes 2x10 Comments good form and pacing Ankle EV Sitting Exercise Name Ankle EV strengthening Side bilateral Resistance - Discussed is doing as HEP at home Equipment Used Lev 3 TB Reps/Minutes 15x each Comments HEP reviewed Sit to Stands Sitting Exercise Name Sit to Stands - extra time for pt to obtain best posture ( tailbone lift) Resistance arms across chest Reps/Minutes 5 reps in sec 22sec Comments cued hip hinge, lost balance backward to sit back inseat x1 self recovery Gait Training Gait Activity 6MWT Description posture, foot clearance, stride, endurance Device Used B [employer] poles Level of Assistance SBA- S Surface firm: carpet/ tile Distance/Duration 606 ft= 1.00 ft /sec Treatment Focus posture, foot clearance, stride, endurance Comments cues as described with description. R>L LE catches floor x3 self recovery, improved clearance with cues posture and increase knee lift . Neuro Re-Education Treatment Balance Activities corner balance Details reviewed HEP Surface firm Equipment corner back, chair front Comments NBOS: EC 30 sec stagger: EC L forward 30s, R forward 19s * cues tall posture, wt bwtn BLE, core and hip abd fac- improved stability. TUG Surface firm Equipment B walk sticks Reps/Duration x3 Comments 20s, 18s. PT-OP-T Assessment and Plan Start: 11/01/21 18:51 Freq: Status: Active Protocol: Document 12/14/21 09:06 SP (Rec: 12/14/21 09:49 SP [id number]) Physical Therapy Assessment Goals Four Impairment Decreased stability with gait per TUG score 17 without asst device. Impairment TUG score 17 without asst device (60<80% impaired, score 16-17). TUG score 20 with walking sticks (100% impaired). Short Term Goal (STG) Improve TUG score without asst device to 15 (40<60% impaired , score 14-15), and with walking sticks to 18 (80<100% impaired, score 18-19). 12/01/21: TUs, 19s, 23s 12/14/21: 20s, 18s. STG Duration 01/06/22 Progressing 12/14/21 [employer] Goal (LTG) Imiprove stability with gait with pt able to report no use of support surfaces to manueuver around her kitchen during meal prep. LTG Duration 02/05/22 Three Impairment Decreased gait ability per DGI score of 14 Impairment DGI 14 (40-<60% impaired, score 10-14) Short Term Goal (STG) Improve safety with gait per DGI score of 19 or higher ( score 15-19 is 20<40% impaired , score 20-23 is 1<20% impaired). 12/08/21: 16/24 20-40 % impaired , fallrisk. STG Duration 01/06/22 progressin12/08/21 Residential Goal (LTG) Pt will be able to walk more symmetrically and faster. 12/14/21: 6MWT 606 ft= 1.00 ft/ sec, decreased foot clearance and posture over distance and R>LLE scuff and caught x1 during assessment, self trek pole recovery, improves with min cues posture. LTG Duration 02/05/22 (12/14/21 progressing) Two Impairment Decreased core and LE strength resulting in poor posture Short Term Goal (STG) Pt will be educated in general strengthening ex's of core & LE's. 12/14/21: Progressing: pt states compliant with LE ex and will continue to perform supine/side HEP. STG Duration 01/06/22 (progressing 12/14/21) [employer]isher Goal (LTG) Pt will demonstrate improved standing posture resulting from improved LE and trunk strength. 12/14/21: side stepping, ankle EV, STS, corner balance, supine: clamshell/ reverse clam,SLR, seated LAQ LTG Duration 02/05/22 (progressin12/14/21 ) One Impairment Pt lacks appropriate self care HEP. Short Term Goal (STG) Pt will be independent with a self care HEP. STG Duration 01/06/22 [employer]isher Goal (LTG) Pt will be independent with a self care aquatic exercise program. (11/10/21: HEP issued: TB ankle EV & knee ext strengthening) 12/01/21: side stepping. 12/08/21: added corner balance to HEP. LTG Duration 02/05/22 (12/08/21: Progressed ) Progress Towards Goals Progress Towards Goals Progressing Toward Goals Progress Comments TUG, 6MWT, DGI Assessment Summary Assessment Pt improving in more conscious of posture, able complete EC up to 30s stagger/NBOS now in corner with very little self recovery sways, finds potsure challenging over distance today didn't realize. NOted decrease foot clearance during 6MWT baseline assessment this tx, she reports uses UE support with trek poles 50% longer distances. Physical Therapy Plan Frequency and Duration Frequency of Treatment 2x/Week Plan of Care Start Date 11/07/21 Plan of Care End Date 02/05/22 Therapeutic Interventions Therapeutic Interventions Aquatic Therapy,Balance Training,Gait Training,Home Exercise Program,Neuromuscular Re-education,Patient/ Caregiver Education,Self-Care/ Home Management,Therapeutic Activities,Therapeutic Exercises Modalities Cold Pack/Ice Massage,Hot Packs Next Visit Focus/Plan Next Note Type Treatment Note Next Visit Plan Warm up biodex, check supine/ side LE/core and standing side stepping HEP, corner balance, shuttle balance helped posture, add shld ext/rows for HEP core strength and balance , continue gait endurance w/ posture, Future tx: add hurdles, wall posture. POC: Assess pt ability to perform anter pelv tilt & pelv rotation. Educate in general strengthening ex's of core & LE's. Self care HEP: postural ex's of trunk/hip ROM/strengthening , ankle strengthening. Ther Ex: sit to stand ex to improve LE/core strength. Gait: Improve gait stability and speed.
--- NOTE | 2021-12-16 15:40 | PT.OTN ---
Current Diagnoses Muscle weakness (generalized) (12/16/21) Unsteadiness on feet (12/16/21) Other abnormalities of gait and mobility (12/16/21) Unspecified abnormalities of gait and mobility (12/16/21) Abnormal posture (12/16/21) Physical Therapy Treatment Note PT-OP-A Visit Information Start: 11/01/21 18:51 Freq: Status: Active Protocol: Document 12/16/21 13:01 LRN (Rec: 12/16/21 15:38 LRN [id number]) Out-Patient Physical Therapy Visit Information Visit Information Visit Type Progress Note Visit Start Time 13:01 Visit Stop Time 13:43 Total Visit Minutes 42 Visit Number 10 Evaluation Information Evaluation Date 11/07/21 Precautions Precautions Osteopenia (chiropractor won't touch her back), [place] TKA's ( 2011, 2010), arthritis, occasional falls. PT-OP-B Current Condition Start: 11/01/21 18:51 Freq: Status: Active Protocol: Document 11/07/21 13:03 LRN (Rec: 11/07/21 17:24 LRN [id number]) Current Condition History of Current Condition Onset Date 2-3 yrs ago Current Complaints Has to walk slowly and akwardly and has trouble getting up out of chair. History of Current Condition Past 2-3 yrs started to have walking and balance changes caused her to walk slower, which is an annoyance. Denies dizziness. Sometimes L knee pain. Fell a year ago going up one step tripping on the first step because didn't see it because the grass had grown over it. 1 step into house ( 4 step) and 14 steps inside the house. Prior Treatments and Tests None Future Testing and Treatments Planned None Treatment Goals Patient/Caregiver Goals Pt goal is to improve her muscle strength everywhere. Pt goal is to be able to walk more symmetrically, and faster . Pt agreeable to pool therapy in a month or two. Prior Functional Status Baseline Function- ADL's Independent Baseline Function- Mobility Independent Baseline Function- Gait Ambulated independently without assistive devices. Current Functional Impairments (Reported) Functional Limitations- ADL's Trying to cook uses counters to stabilize herself. Functional Limitations- Mobility/Gait Ambulates with 2 walking sticks outside the home and no assistive devices in the home , wearing orthotics for past 9 months. Personal Factors Other Personal Factors That May Effect Chronicity of condition, Therapy/Recovery osteopenia, Lives with spouse who has cancer in one ear, so she does all cooking and she hangs onto objects to steady herself because she doesn't use walking sticks inside the house. PT-OP-C Subjective Start: 11/01/21 18:51 Freq: Status: Active Protocol: Document 12/16/21 13:01 LRN (Rec: 12/16/21 15:38 LRN [id number]) OP-PT Subjective Patient Comments Patient Comments 2 days ago got very sore in R hip after walking 4 laps in clinic and walking to cafeteria. Became very sore in the afternoon (3 hrs after therapy) and has been difficult since then. Pain is rated in her L low back as 8/ 10. 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 States it didn't hurt doing it. States she no longer wants to do aquatic therapy due to fears of illness in community from [facility]. PT-OP-D Balance Start: 11/01/21 18:51 Freq: Status: Active Protocol: Document 11/21/21 09:04 LRN (Rec: 11/21/21 09:51 LRN [id number]) Ho Balance Assessment Evaluation Sitting to Standing Ability Independent w/out Hands Unsupported Stance Safely- 2 minutes Sitting Unsupported, Feet on Floor Safely- 2 minutes Standing to Sitting Ability Safely, Minimal Hand Use Transfer Ability Safely, Minimal Hand Use Unsupported Stance- Eyes Closed Safely, 10 seconds Unsupported Stance- Eyes Open Independent, 1 minute Reaching Forward Standing Confidently, 10 inches Pick- Up Object From Floor Independent/Safe Look Behind Shoulder - Standing Shifts Weight Well Turning 360 Degrees Turns slowly, but safely Unsupported Stance, Alternating Feet on (I)- 8 Steps in > 20 secs Stair Unsupported Tandem Stance Balance Lost- Step/Stand Unilateral Leg Stance Unable,assist to not fall Total Score Ho Total Score (out of 56 points) 45 Ho Impairment Rating 1 to 19% Impaired (Score 45-55 ) PT-OP-E Functional Tests Start: 11/01/21 18:51 Freq: Status: Active Protocol: Document 12/14/21 09:06 SP (Rec: 12/14/21 09:49 SP [id number]) Functional Tests 6 Minute Walk Test Distance 606 ft= 1ft/sec Device Used B trek poles Comments cued posture, foot clearance and stride Timed Up and Go (TUG) Score 20s, 18s Comments posture, speed TUG Impairment Rating 80 to <100% Impaired (Score 18 -19) PT-OP-G Mobility & Gait Start: 11/01/21 18:51 Freq: Status: Active Protocol: Document 11/07/21 13:03 LRN (Rec: 11/07/21 17:24 LRN [id number]) OP Gait Assessment Gait Gait Assistance Required: Independent Able to Maintain Weight Bearing Status Yes During Gait Gait Deviations General Gait Pattern Decreased Stride Length,Flexed Trunk,Lateral Trunk Lean Comments Gait Comments Assistive devices used: 2 walking sticks outside. No assistive device inside home. Has shorter step length with LLE. Stair Climbing Evaluation Comments Stair Climbing Comments Pt reports no problems with stair ambulation, uses 2 railings. PT-OP-J Posture/Palpation/Skin Start: 11/01/21 18:51 Freq: Status: Active Protocol: Document 11/07/21 13:03 LRN (Rec: 11/07/21 17:24 LRN [id number]) Posture Evaluation Position Standing Evaluation View Lateral Head/C-Spine Posture Forward Head L-Spine Posture Flattened Hip Posture (L) Flexed,(R) Flexed Comments Posture Comments Stands in hip flex 50-60 deg's hip flexion. PT-OP-M Strength Start: 11/01/21 18:51 Freq: Status: Active Protocol: Document 12/16/21 13:01 LRN (Rec: 12/16/21 15:38 LRN [id number]) Hip Strength Hip Manual Muscle Testing Right Flexion (L2) 5 Normal Abduction 5 Normal Adduction 5 Normal External Rotation 5 Normal Internal Rotation 5 Normal Left Flexion (L2) 5 Normal Extension (S1) 5 Normal Abduction 5 Normal Adduction 5 Normal External Rotation 5 Normal Internal Rotation 5 Normal Comments No pain in lower sacral region with MMT. PT-OP-Q Treatments Start: 11/01/21 18:51 Freq: Status: Active Protocol: Document 12/16/21 13:01 LRN (Rec: 12/16/21 15:38 LRN [id number]) Therapeutic Exercises Sitting Exercises Hip ER/IR/AB/AD/Flex Sitting Exercise Name Resisted Isometric -MMT Side bilateral Comments No pain elicited with MMT. Manual Therapy Treatment Soft Tissue Mobilization Distraction at lumbosacral junction Body Location Lumbosacral junction Mobilization Type Sustained Pressure Intensity/Depth Moderate Body Position Prone Low back Body Location QL R>L Mobilization Type Strumming Body Position Prone R Sacral LAURA Body Location Sacral R lateral LAURA Mobilization Type Sustained Pressure Intensity/Depth Superficial Body Position Prone R Piriformis Body Location R Piriformis Mobilization Type Strumming,Sustained Pressure Intensity/Depth Moderate Body Position Prone Manual Techniques MWM standing Type MWM weight shifting onto R LE. Body Location PA R Sacral border, AP R sacral border Body Position Standing Comments No change in R lower buttock pain on R sacral inferior aspect~S3-S4 level with MWM. MWM walking Type MWM walking. Body Location Distraction L3-L4, L4-L5, L5- S1, PA R Sacral border, AP R sacral border Body Position Standing Comments No significant change with R lower buttock pain on R sacral inferior aspect~S3-S4 level. Pt thought there might have been a little relief initially with distraction of L5-S1, but later felt there was no change. PT-OP-T Assessment and Plan Start: 11/01/21 18:51 Freq: Status: Active Protocol: Document 12/16/21 13:01 LRN (Rec: 12/16/21 15:38 LRN [id number]) Physical Therapy Assessment Rehab Potential Rehabilitation Potential Good Evaluation Complexity Number of Personal Factors/Comorbidities 1-2 Number of Body Systems Impaired 4 or More Clinical Presentation at Evaluation Evolving Impairments Impairments Balance,Gait,Posture,ROM,Soft Tissue Mobility,Strength Goals Four Impairment Decreased stability with gait per TUG score 17 without asst device. Impairment TUG score 17 without asst device (60<80% impaired, score 16-17). TUG score 20 with walking sticks (100% impaired). Short Term Goal (STG) Improve TUG score without asst device to 15 (40<60% impaired , score 14-15), and with walking sticks to 18 (80<100% impaired, score 18-19). 12/01/21: TUs, 19s, 23s 12/14/21: 20s, 18s. STG Duration 01/06/22 (12/14/21: Progressing) Sustainable Products Marketing Manager Goal (LTG) Improve stability with gait with pt able to report no use of support surfaces to manueuver around her kitchen during meal prep. LTG Duration 02/05/22 Three Impairment Decreased gait ability per DGI score of 14 Impairment DGI 14 (40-<60% impaired, score 10-14) Short Term Goal (STG) Improve safety with gait per DGI score of 19 or higher ( score 15-19 is 20<40% impaired , score 20-23 is 1<20% impaired). 12/08/21: 16/24 20-40 % impaired , fall risk. STG Duration 01/06/22 (12/08/21: progressing) Nursing Home Goal (LTG) Pt will be able to walk more symmetrically and faster. 12/14/21: 6MWT 606 ft= 1.00 ft/ sec, decreased foot clearance and posture over distance and R>LLE scuff and caught x1 during assessment, self trek pole recovery, improves with min cues posture. LTG Duration 02/05/22 (12/14/21 progressing) Two Impairment Decreased core and LE strength resulting in poor posture Short Term Goal (STG) Pt will be educated in general strengthening ex's of core & LE's. 12/14/21: Progressing: pt states compliant with LE ex and will continue to perform supine/side HEP. STG Duration 01/06/22 (progressing ) Nursing Home Goal (LTG) Pt will demonstrate improved standing posture resulting from improved LE and trunk strength. 12/14/21: side stepping, ankle EV, STS, corner balance, supine: clamshell/ reverse clam,SLR, seated LAQ LTG Duration 02/05/22 (progressin12/14) One Impairment Pt lacks appropriate self care HEP. Short Term Goal (STG) Pt will be independent with a self care HEP. STG Duration 01/06/22 Sustainable Products Marketing Manager Goal (LTG) Pt will be independent with a self care aquatic exercise program. (11/10/21: HEP issued: TB ankle EV & knee ext strengthening) 12/01/21: side stepping. 12/08/21: added corner balance to HEP. (12/16/21: NOT MET. Pt choosing not to do aquatic program) LTG Duration 02/05/22 (12/16/21: DC GOAL, NO LONGER APPROPRIATE) Assessment Summary Assessment The pt presents today with complaints of pain in R lateral buttock in lower R lateral border of sacrum with walking and moving, ~S3-S4 level. There is no obvious soft tissue injury and there is no pain with hip mobility or MMT. Pain in her R lower sacral region is primarily with weightbearing through the LE. After lowback manual traction through the thighs the pt was able to perform a heel slide with less complaints of R lateral sacral pain; therefore pain appears to be more neural related at sacral level. Pt may need heat to reduce irritation and pain. Pt was progressing nicely with being placed on a home program and with gait stability per TUG and DGI scores. The pt will benefit from continued skilled physical therapy, progressing in her program once she has recovered from her flare up of R LBP, possibly from neural tension strain. We will continue to work towards achieving the above stated goals. Physical Therapy Plan Frequency and Duration Frequency of Treatment 2x/Week Plan of Care Start Date 11/07/21 Plan of Care End Date 02/05/22 Therapeutic Interventions Therapeutic Interventions Balance Training,Gait Training ,Home Exercise Program, Neuromuscular Re-education, Patient/Caregiver Education, Self-Care/Home Management, Therapeutic Activities, Therapeutic Exercises Modalities Cold Pack/Ice Massage,Hot Packs Next Visit Focus/Plan Next Note Type Treatment Note Next Visit Plan Hold warm up biodex. Try prone ex's to strengthen and stabilize back and reduce R LBP. Check supine/side LE/ core and standing side stepping previously issued home ex's, and corner balance ex's; shuttle balance helped posture, add shld ext/rows for HEP core strength and balance , continue gait endurance w/ posture, Future tx: add hurdles, wall posture. POC: Assess pt ability to perform anter pelv tilt & pelv rotation. Educate in general strengthening ex's of core & LE's. Self care HEP: postural ex's of trunk/hip ROM/strengthening , ankle strengthening. Ther Ex: sit to stand ex to improve LE/core strength. Gait: Improve gait stability and speed.
--- NOTE | 2021-12-19 17:40 | PT-OP ANOTE ---
Message received that the pt has tried heat to her low back and found it soothing, but did not take pain away. Called pt, voicemail left to inform pt that I would try again in morning to contact her. Recommended that if her pain is not tolerable that she contact her physician for an appointment or recommendations of care. Will attempt to call pt in morning.
--- NOTE | 2021-12-27 18:40 | PT-OP ANOTE ---
Late entry: Pt phone conversation 12/23/21 @ 6:50p. Pt reported she has a bladder infection that is causing a lot of pain and she is on pain medications and is unable to move much from her bed. Spouse reports he is also having health issues and will be having PT at [facility] so he will keep me up to date on Mrs. Figueroa's progress. She is planning on returning to PT when she is physically able. Holding pt chart for now.
--- NOTE | 2021-12-29 17:04 | PT-OP ANOTE ---
DOG OBEDIENCE INSTRUCTOR called pt, her and stated having extreme spasms in back and L leg that not allowing her much movement. She got an xray today and waiting on results. SHe did state got a dexiscan and was told L side ostoporosis and R side osteopenia. Pt stated will call back when know more, hoping to find if need specialty referral for find further assessment or ok to return to PT and help decrease spasming to mobilize safely.
--- NOTE | 2022-06-04 14:38 | PT.OPDS ---
Current Diagnoses Muscle weakness (generalized) (12/16/21) Unsteadiness on feet (12/16/21) Other abnormalities of gait and mobility (12/16/21) Unspecified abnormalities of gait and mobility (12/16/21) Abnormal posture (12/16/21) Visit Care Team Role Provider Type Ann Gonzalez MD Attending Provider Physician Family Provider Primary Care Provider Referring Provider Specialty: [facility] Address: [address] [place] [address], [phone] Phone: Fax: Email: [email or web address] Visit Number Visit Number 10 Discharge Summary PT-OP-B Current Condition Start: 11/01/21 18:51 Freq: Status: Active Protocol: Document 11/07/21 13:03 LRN (Rec: 11/07/21 17:24 LRN [id number]) Current Condition History of Current Condition Onset Date 2-3 yrs ago Current Complaints Has to walk slowly and akwardly and has trouble getting up out of chair. History of Current Condition Past 2-3 yrs started to have walking and balance changes caused her to walk slower, which is an annoyance. Denies dizziness. Sometimes L knee pain. Fell a year ago going up one step tripping on the first step because didn't see it because the grass had grown over it. 1 step into house ( 4 step) and 14 steps inside the house. Prior Treatments and Tests None Future Testing and Treatments Planned None Treatment Goals Patient/Caregiver Goals Pt goal is to improve her muscle strength everywhere. Pt goal is to be able to walk more symmetrically, and faster . Pt agreeable to pool therapy in a month or two. Prior Functional Status Baseline Function- ADL's Independent Baseline Function- Mobility Independent Baseline Function- Gait Ambulated independently without assistive devices. Current Functional Impairments (Reported) Functional Limitations- ADL's Trying to cook uses counters to stabilize herself. Functional Limitations- Mobility/Gait Ambulates with 2 walking sticks outside the home and no assistive devices in the home , wearing orthotics for past 9 months. Personal Factors Other Personal Factors That May Effect Chronicity of condition, Therapy/Recovery osteopenia, Lives with spouse who has cancer in one ear, so she does all cooking and she hangs onto objects to steady herself because she doesn't use walking sticks inside the house. PT-OP-C Subjective Start: 11/01/21 18:51 Freq: Status: Active Protocol: Document 12/16/21 13:01 LRN (Rec: 12/16/21 15:38 LRN [id number]) OP-PT Subjective Patient Comments Patient Comments 2 days ago got very sore in R hip after walking 4 laps in clinic and walking to cafeteria. Became very sore in the afternoon (3 hrs after therapy) and has been difficult since then. Pain is rated in her L low back as 8/ 10. 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 States it didn't hurt doing it. States she no longer wants to do aquatic therapy due to fears of illness in community from [facility]. PT-OP-D Balance Start: 11/01/21 18:51 Freq: Status: Active Protocol: Document 11/21/21 09:04 LRN (Rec: 11/21/21 09:51 LRN [id number]) Ho Balance Assessment Evaluation Sitting to Standing Ability Independent w/out Hands Unsupported Stance Safely- 2 minutes Sitting Unsupported, Feet on Floor Safely- 2 minutes Standing to Sitting Ability Safely, Minimal Hand Use Transfer Ability Safely, Minimal Hand Use Unsupported Stance- Eyes Closed Safely, 10 seconds Unsupported Stance- Eyes Open Independent, 1 minute Reaching Forward Standing Confidently, 10 inches Pick- Up Object From Floor Independent/Safe Look Behind Shoulder - Standing Shifts Weight Well Turning 360 Degrees Turns slowly, but safely Unsupported Stance, Alternating Feet on (I)- 8 Steps in > 20 secs Stair Unsupported Tandem Stance Balance Lost- Step/Stand Unilateral Leg Stance Unable,assist to not fall Total Score Ho Total Score (out of 56 points) 45 Ho Impairment Rating 1 to 19% Impaired (Score 45-55 ) PT-OP-E Functional Tests Start: 11/01/21 18:51 Freq: Status: Active Protocol: Document 12/14/21 09:06 SP (Rec: 12/14/21 09:49 SP [id number]) Functional Tests 6 Minute Walk Test Distance 606 ft= 1ft/sec Device Used B trek poles Comments cued posture, foot clearance and stride Timed Up and Go (TUG) Score 20s, 18s Comments posture, speed TUG Impairment Rating 80 to <100% Impaired (Score 18 -19) PT-OP-G Mobility & Gait Start: 11/01/21 18:51 Freq: Status: Active Protocol: Document 11/07/21 13:03 LRN (Rec: 11/07/21 17:24 LRN [id number]) OP Gait Assessment Gait Gait Assistance Required: Independent Able to Maintain Weight Bearing Status Yes During Gait Gait Deviations General Gait Pattern Decreased Stride Length,Flexed Trunk,Lateral Trunk Lean Comments Gait Comments Assistive devices used: 2 walking sticks outside. No assistive device inside home. Has shorter step length with LLE. Stair Climbing Evaluation Comments Stair Climbing Comments Pt reports no problems with stair ambulation, uses 2 railings. PT-OP-J Posture/Palpation/Skin Start: 11/01/21 18:51 Freq: Status: Active Protocol: Document 11/07/21 13:03 LRN (Rec: 11/07/21 17:24 LRN [id number]) Posture Evaluation Position Standing Evaluation View Lateral Head/C-Spine Posture Forward Head L-Spine Posture Flattened Hip Posture (L) Flexed,(R) Flexed Comments Posture Comments Stands in hip flex 50-60 deg's hip flexion. PT-OP-M Strength Start: 11/01/21 18:51 Freq: Status: Active Protocol: Document 12/16/21 13:01 LRN (Rec: 12/16/21 15:38 LRN [id number]) Hip Strength Hip Manual Muscle Testing Right Flexion (L2) 5 Normal Abduction 5 Normal Adduction 5 Normal External Rotation 5 Normal Internal Rotation 5 Normal Left Flexion (L2) 5 Normal Extension (S1) 5 Normal Abduction 5 Normal Adduction 5 Normal External Rotation 5 Normal Internal Rotation 5 Normal Comments No pain in lower sacral region with MMT. PT-OP-T Assessment and Plan Start: 11/01/21 18:51 Freq: Status: Active Protocol: Document 06/04/22 14:22 LRN (Rec: 06/04/22 14:38 LRN [id number]) Physical Therapy Assessment Goals Four Impairment Decreased stability with gait per TUG score 17 without asst device. Impairment TUG score 17 without asst device (60<80% impaired, score 16-17). TUG score 20 with walking sticks (100% impaired). Short Term Goal (STG) Improve TUG score without asst device to 15 (40<60% impaired , score 14-15), and with walking sticks to 18 (80<100% impaired, score 18-19). 12/01/21: TUs, 19s, 23s 12/14/21: 20s, 18s. STG Duration 01/06/22 (12/14/21: Progressing) (06/04/22: NOT MET GOAL) Penitentiary Goal (LTG) Improve stability with gait with pt able to report no use of support surfaces to manueuver around her kitchen during meal prep. LTG Duration 02/05/22 (06/04/22: NOT MET GOAL, pt didn't complete rehab program) Three Impairment Decreased gait ability per DGI score of 14 Impairment DGI 14 (40-<60% impaired, score 10-14) Short Term Goal (STG) Improve safety with gait per DGI score of 19 or higher ( score 15-19 is 20<40% impaired , score 20-23 is 1<20% impaired). 12/08/21: 16 20-40 % impaired , fall risk. STG Duration 01/06/22 (12/08/21: progressing) (06/04/22: NOT MET GOAL) Vehicle Upholsterer Goal (LTG) Pt will be able to walk more symmetrically and faster. 12/14/21: 6MWT 606 ft= 1.00 ft/ sec, decreased foot clearance and posture over distance and R>LLE scuff and caught x1 during assessment, self trek pole recovery, improves with min cues posture. LTG Duration 02/05/22 (12/14/21 progressing) (06/04/22: NOT MET GOAL) Two Impairment Decreased core and LE strength resulting in poor posture Short Term Goal (STG) Pt will be educated in general strengthening ex's of core & LE's. 12/14/21: Progressing: pt states compliant with LE ex and will continue to perform supine/side HEP. STG Duration 01/06/22 (progressing ) (06/04/22: NOT MET GOAL) Penitentiary Goal (LTG) Pt will demonstrate improved standing posture resulting from improved LE and trunk strength. 12/14/21: side stepping, ankle EV, STS, corner balance, supine: clamshell/ reverse clam,SLR, seated LAQ LTG Duration 02/05/22 (progressed ) (06/04/22: NOT MET GOAL) One Impairment Pt lacks appropriate self care HEP. Short Term Goal (STG) Pt will be independent with a self care HEP. STG Duration 01/06/22 (06/04/22: NOT MET GOAL, pt didn't complete rehab program) Penitentiary Goal (LTG) Pt will be independent with a self care aquatic exercise program. (11/10/21: HEP issued: TB ankle EV & knee ext strengthening) 12/01/21: side stepping. 12/08/21: added corner balance to HEP. (12/16/21: NOT MET. Pt choosing not to do aquatic program) LTG Duration 02/05/22 (12/16/21: DC GOAL, NO LONGER APPROPRIATE) Assessment Summary Assessment The pt was last seen 12/16/21 and at that time had complaints of pain in R lateral buttock in the lower R lateral border of her sacrum with walking and moving, ~S3- S4 level. There was no obvious soft tissue injury and no pain with hip mobility or MMT. Pain in her R lower sacral region was primarily with LE weightbearing. After manual LB traction (traction through thighs) the pt was able to perform a heel slide with less complaints of R lateral sacral pain; therefore pain appeared to be more neural related at sacral level. She showed overall improvement with gait stability per TUG and DGI scores. Pt was progressing nicely on a home program. The pt has not been able to return to therapy due to pain and other health issues. Her plan of care has and since she has had other health issues, it is recommended that the pt be seen by the referring physician for follow up assessment and a new referral sent for physical therapy if still appropriate. Physical Therapy Plan Discharge Physical Therapy Discharge Reasons No Longer Attending PT Discharge Comments See assessment above. Thank you for your referral.
== END 2022-07-12 16:51 | disposition home or self-care (01) ==
LOC: PHYS 13:00
PROVIDERS: Family Provider Family Medicine; PCP Family Medicine; Referring Provider Family Medicine; Visit Provider Family Medicine
DX: R26.89 Other abnormalities of gait and mobility (principal); R26.9 Unspecified abnormalities of gait and mobility; M62.81 Muscle weakness (generalized); R29.3 Abnormal posture; R26.81 Unsteadiness on feet
CPT/HCPCS: 97110; 97112; 97116; 97140; 97162; 97535

== ENCOUNTER → 2021-12-22 16:04 | Outpatient (CLI) | payer MEDICARE, SELFPAY | PROVIDERS: Family Provider Family Medicine; PCP Family Medicine; Visit Provider Registered Nurse Diabetes Educator | DX: R82.90 Unspecified abnormal findings in urine (principal) | CPT/HCPCS: 87077; 87086; 87186 ==

== ENCOUNTER → 2021-12-29 14:38 | Outpatient (CLI) | payer MEDICARE, SELFPAY ==
--- NOTE | 2021-12-29 14:40 | DI.RAD.S_ITS ---
PROCEDURE: XR HIP W PEL IF DONE ALAINA MIN 4V INDICATIONS: back and hip pain TECHNIQUE: AP pelvis with lateral view(s) of the right and left hip(s). COMPARISON: None. FINDINGS: Bones: No fractures or dislocations. Pelvic ring appears intact. No suspicious bony lesions. Mild bilateral hip osseous hypertrophy compatible with mild osteoarthritis. Soft tissues: The visualized bowel gas pattern is normal. No suspicious soft tissue calcifications. IMPRESSION: Mild bilateral hip osteoarthritis. Dictated by: Janet Plata MD, PhD on 12/29/2021 at 16:12 Approved by: Janet Plata MD, PhD on 12/29/2021 at 16:14
--- NOTE | 2021-12-29 14:40 | DI.RAD.S_ITS ---
PROCEDURE: XR LUMBAR SPINE MIN 4V INDICATIONS: back and hip pain TECHNIQUE: 5 views of the lumbar spine were acquired, including bilateral oblique views. COMPARISON: None. FINDINGS: Bones: 5 nonrib-bearing vertebrae are present. There is 5 millimeters of L2-L3 anterolisthesis, there is 9 millimeters of L3-L4 anterolisthesis. There is 8 millimeters of L4-L5 anterolisthesis. Convex left scoliosis of the lumbar spine. No vertebral body compression fractures. No suspicious bony lesions. Moderate L2-L3, L3-L4 and L4-L5 degenerative disc disease. Mild L5-S1 degenerative disc disease. Moderate L2-L3, L3-L4, L4-L5 and L5-S1 facet arthropathy. Mild L1-L2 facet arthropathy. Soft tissues: Overlying bowel gas pattern is normal. No suspicious soft tissue calcifications. Oblique images: No pars defects. IMPRESSION: 1. Multilevel degenerative disc disease. 2. Multilevel facet arthropathy. 3. No fracture. No acute osseous lesion. If symptoms and/or clinical suspicion for pathology persists, evaluation with MRI should be considered for further assessment. 4. Grade 1 L2-L3, L3-L4 and L4-L5 degenerative spondylolisthesis. 5. Convex left scoliosis. Dictated by: Janet Plata MD, PhD on 12/29/2021 at 16:14 Approved by: Janet Plata MD, PhD on 12/29/2021 at 16:16
== END ==
PROVIDERS: Family Provider Family Medicine; PCP Family Medicine; Referring Provider Family Medicine; Visit Provider Family Medicine
DX: M25.559 Pain in unspecified hip (principal); M54.50 Low back pain, unspecified; M62.830 Muscle spasm of back; M51.36 Other intervertebral disc degeneration, lumbar region; M47.816 Spondylosis without myelopathy or radiculopathy, lumbar region; M43.16 Spondylolisthesis, lumbar region; M41.9 Scoliosis, unspecified; M16.0 Bilateral primary osteoarthritis of hip
CPT/HCPCS: 72110; 73522

== ENCOUNTER → 2022-01-05 15:22 | Outpatient (CLI) | payer MEDICARE, SELFPAY ==
[2022-01-05 18:40] LABS: Appearance Urine UA CLEAR; Bilirubin Urine UA NEGATIVE (NEGATIVE); Color Urine UA YELLOW; Glucose Urine UA NEGATIVE (Negative); Ketones Urine UA NEGATIVE (NEGATIVE); Leukocyte Esterase Urine UA NEGATIVE (NEGATIVE); Nitrite Urine UA NEGATIVE (Negative); Occult Blood Urine UA NEGATIVE (Negative); Protein Urine UA NEGATIVE (Negative); Specific Gravity Urine UA <=1.005 (1.000-1.035); Urobilinogen Urine UA 0.2 E.U./dL (0.2)
[2022-01-05 18:43] LABS: pH Urine UA 6.5 (4.5-8.0)
[2022-01-05 19:16] LABS: RBC Urine 0-1/HPF (0-5/HPF)
[2022-01-05 19:17] LABS: Bacteria Urine None Seen; Squamous Epithelial Cell Urine None Seen (0-5/HPF); WBC Urine None Seen (0-5/HPF)
== END ==
PROVIDERS: Family Provider Family Medicine; PCP Pediatrics; Visit Provider Obstetrics & Gynecology
DX: N39.0 Urinary tract infection, site not specified (principal); N39.41 Urge incontinence
CPT/HCPCS: 81001; 87086

== ENCOUNTER → 2022-01-13 13:56 | Outpatient (CLI) | payer MEDICARE, SELFPAY ==
--- NOTE | 2022-01-13 13:58 | DI.MRI.S_ITS ---
PROCEDURE: MR LUMBAR SPINE WO CON INDICATIONS: left leg radiculopathy with disc disease and poss stenosis TECHNIQUE: Noncontrast sagittal T1 spin echo and T2 fast echo, sagittal STIR, and T2 fast spin echo through the lumbar spine. In cases with scoliosis, additional coronal T2 fast spin echo may be performed. COMPARISON: [facility] [place], CR, SPINE LUMB 2 OR 3VW, 12/22/2014, 8:41. [facility], CR, XR LUMBAR SPINE MIN 4V, 12/29/2021, 14:53. [facility], CR, L-SPINE 2-3 VIEWS, 01/22/2009, 12:50. FINDINGS: Image quality: Excellent. Alignment and Curvature: There is [id number] levoconvex lumbar scoliosis. Grade 1 anterolisthesis is seen at L2-L3, L3-L4, and L4-L5. Associated pars defects are not seen. Bone Marrow: Marrow is of normal overall signal. There is abnormal STIR signal seen involving S1 at and S2, with deformity seen involving the anterior superior aspect of S2. This process involves both sacral ala. Spinal Cord: Conus medullaris terminates at the L1 level. Visualized cord demonstrates normal signal and size. Paraspinous Soft Tissues: No paravertebral masses. T11-T12: Moderate loss of disc height is seen. Mild generalized disc bulge is seen. There is moderate left-sided and no significant right-sided neural foraminal narrowing. The central canal is widely patent. T12-L1: Normal appearance. L1-L2: Normal appearance. L2-L3: At least moderate loss of disc height and disc signal can be seen. Moderate disc bulge is seen, which is eccentric to the right side. There is moderate facet hypertrophy seen. Moderate bilateral neural foraminal narrowing is seen. Moderate central canal narrowing is seen. L3-L4: Moderate loss of disc height is seen. Loss of disc signal is seen. Reactive marrow endplate changes are seen, which are hyperintense on T1-weighted and T2-weighted imaging and most consistent with fatty metaplasia (Modic type II changes). Moderate disc bulge is seen, which is eccentric to the right. At least moderate facet hypertrophy is seen. Associated hypertrophy of the ligamentum flavum can be seen. Moderate to severe bilateral neural foraminal narrowing can be seen, right worse than left. There is a degree of compression seen upon the exiting nerve roots. Severe central canal is seen, as on series 6, image 18. The degree of central canal narrowing is worsened by epidural fat posteriorly. L4-L5: At least moderate loss of disc height and disc signal can be seen on the left side. Moderate generalized disc bulge is seen. Moderate facet joint hypertrophy is seen. There is ciyt-tq-fetuprsq right-sided and at least moderate left-sided neural foraminal narrowing. Moderate central canal narrowing is seen. L5-S1: The disc height is well-preserved. Loss of disc signal is seen at this level. Mild generalized disc bulge is seen. Mild to moderate facet hypertrophy is seen. There is mild right-sided and moderate left-sided neural foraminal narrowing. Moderate central canal narrowing is seen, which is exacerbated by epidural fat. IMPRESSION: Sacral fracture, likely related to an insufficiency fracture. If clinically appropriate, please consider a follow-up CT for further evaluation. Multiple levels of lumbar spine degenerative change are seen, which are overall worst at the L3-L4 level, where there is moderate to severe bilateral neural foraminal narrowing and severe central canal narrowing present. Opnc-bo-pnlsohjq levoconvex scoliosis. Dictated by: Chago Garcia M.D. on 01/13/2022 at 14:37 Approved by: Chago Garcia M.D. on 01/13/2022 at 14:43
== END ==
PROVIDERS: Family Provider Family Medicine; PCP Pediatrics; Referring Provider Pediatrics; Visit Provider Pediatrics
DX: M51.16 Intervertebral disc disorders with radiculopathy, lumbar region (principal); S32.10XA Unspecified fracture of sacrum, initial encounter for closed fracture; M47.26 Other spondylosis with radiculopathy, lumbar region; M47.27 Other spondylosis with radiculopathy, lumbosacral region; M48.061 Spinal stenosis, lumbar region without neurogenic claudication; M48.07 Spinal stenosis, lumbosacral region; M41.86 Other forms of scoliosis, lumbar region
CPT/HCPCS: 72148

== ENCOUNTER → 2022-01-23 13:44 | Outpatient (CLI) | payer MEDICARE, SELFPAY ==
--- NOTE | 2022-01-23 13:46 | DI.CT.S_ITS ---
PROCEDURE: CT LUMBAR SPINE WO CON INDICATIONS: Sacral fracture TECHNIQUE: Noncontrast 3 mm thick sections acquired from the T12 level to the sacrum. Sagittal and coronal reformats were constructed. For radiation dose reduction, the following was used: automated exposure control. COMPARISON: [facility], , MR LUMBAR SPINE WO CON, 01/13/2022, 14:49. FINDINGS: Fractures with evidence of remodeling and sclerosis noted through bilateral sacral ala. Minimal displacement noted along the anterior cortex. Degenerative disc disease and arthropathy in the lower lumbar spine with grade 1 anterior spondylolisthesis at L2-3, L3-4 and L4-5 is again noted, unchanged from the prior. Central and foraminal stenosis is concordant with the prior MRI, including severe central and bilateral foraminal stenosis at L3-4 IMPRESSION: 1. Multiple bilateral sacral ala fractures with minimal displacement and evidence of interval healing 1. Multilevel degenerative disc disease and arthropathy resulting in varying degrees of central foraminal stenosis concordant with the prior CT, including severe central and bilateral foraminal stenosis at L3-4 Approved by: Jay Mcintosh M.D. on 01/23/2022 at 14:52
== END ==
PROVIDERS: Family Provider Family Medicine; PCP Pediatrics; Referring Provider Pediatrics; Visit Provider Pediatrics
DX: M51.36 Other intervertebral disc degeneration, lumbar region (principal); M47.816 Spondylosis without myelopathy or radiculopathy, lumbar region; M48.061 Spinal stenosis, lumbar region without neurogenic claudication; S32.19XD Other fracture of sacrum, subsequent encounter for fracture with routine healing; R93.7 Abnormal findings on diagnostic imaging of other parts of musculoskeletal system; M54.9 Dorsalgia, unspecified; M43.16 Spondylolisthesis, lumbar region; M19.90 Unspecified osteoarthritis, unspecified site
CPT/HCPCS: 72131

== ENCOUNTER → 2022-01-30 14:48 | Outpatient (CLI) | payer MEDICARE, SELFPAY ==
[2022-01-30 15:43] LABS: Appearance Urine UA CLEAR; Bilirubin Urine UA NEGATIVE (NEGATIVE); Color Urine UA YELLOW; Glucose Urine UA NEGATIVE (Negative); Ketones Urine UA NEGATIVE (NEGATIVE); Leukocyte Esterase Urine UA 3+ (NEGATIVE); Nitrite Urine UA POSITIVE (Negative); Occult Blood Urine UA NEGATIVE (Negative); Protein Urine UA NEGATIVE (Negative); Specific Gravity Urine UA 1.015 (1.000-1.035); Urobilinogen Urine UA 0.2 E.U./dL (0.2)
[2022-01-30 15:52] LABS: pH Urine UA 6.5 (4.5-8.0)
[2022-01-30 15:53] LABS: Bacteria Urine Many (>30); Culture Indicated Urine Specimen Cultured; RBC Urine None Seen (0-5/HPF); Squamous Epithelial Cell Urine 1-5 /HPF (0-5/HPF); WBC Urine 1-5/HPF (0-5/HPF)
== END ==
PROVIDERS: Family Provider Family Medicine; PCP Pediatrics; Referring Provider Obstetrics & Gynecology; Visit Provider Obstetrics & Gynecology
DX: R82.90 Unspecified abnormal findings in urine (principal); Z87.440 Personal history of urinary (tract) infections
CPT/HCPCS: 81001; 87077; 87086; 87186

== ENCOUNTER → 2022-06-08 12:58 | Outpatient (CLI) | payer MEDICARE, SELFPAY | PROVIDERS: Family Provider Family Medicine; Visit Provider Nurse Practitioner Family | DX: S81.802A Unspecified open wound, left lower leg, initial encounter (principal) | CPT/HCPCS: 87070; 87075; 87077; 87205 ==

== ENCOUNTER → 2022-10-10 11:48 | Outpatient (CLI) | payer MEDICARE, SELFPAY ==
--- NOTE | 2022-10-10 | DI.US.S_ITS ---
PROCEDURE: US CAROTID DOPPLER BI INDICATIONS: BILATERAL CAROTID ARTERY STENOSIS TECHNIQUE: Color and pulse Doppler interrogation was performed of both carotid systems, with image documentation and velocity measurements. COMPARISON: None. FINDINGS: Stenosis calculations are based on SRU (Society of Radiologists in Ultrasound) criteria. Right side: Brachial blood pressure: 109/59 mm Hg. Common carotid artery peak systolic velocity: 109 cm/sec. Internal carotid artery peak systolic velocity: 3 cm/sec. Internal carotid artery end diastolic velocity: 34 cm/sec. External carotid artery peak systolic velocity: 66 cm/sec. ICA/CCA peak systolic ratio: 0.9 . Gil scale imaging description: Mild calcific plaque at the bifurcation Percent internal carotid artery stenosis: Less than 50% . Vertebral artery: Flow direction is antegrade. Left side: Brachial blood pressure: 108/65 mm Hg. Common carotid artery peak systolic velocity: 138 cm/sec. Internal carotid artery peak systolic velocity: 99 cm/sec. Internal carotid artery end diastolic velocity: 33 cm/sec. External carotid artery peak systolic velocity: 89 cm/sec. ICA/CCA peak systolic ratio: 0.7 . Gil scale imaging description: Mild calcific plaque at the bifurcation Percent internal carotid artery stenosis: Less than 50% . Vertebral artery: Flow direction is antegrade. IMPRESSION: 1. Less than 50% bilateral internal carotid artery stenosis. 2. Antegrade vertebral artery flow bilaterally. Dictated by: Angelita Andino M.D. on 10/10/2022 at 14:18 Transcribed by: KEL on 10/10/2022 at 14:19 Approved by: Angelita Andino M.D. on 10/10/2022 at 16:41
== END ==
PROVIDERS: Family Provider Family Medicine; PCP Family Medicine; Referring Provider Internal Medicine; Visit Provider Internal Medicine
DX: I65.23 Occlusion and stenosis of bilateral carotid arteries (principal)
CPT/HCPCS: 93880

== ENCOUNTER → 2023-01-13 15:06 | Outpatient (CLI) | payer MEDICARE, SELFPAY | PROVIDERS: Family Provider Family Medicine; PCP Family Medicine; Visit Provider Physician Assistant | DX: L08.9 Local infection of the skin and subcutaneous tissue, unspecified (principal) | CPT/HCPCS: 87070; 87075; 87205 ==

== ENCOUNTER → 2023-02-08 13:52 | Outpatient (CLI) | payer MEDICARE, SELFPAY ==
--- NOTE | 2023-02-08 | DI.MG.S_ITS ---
BILATERAL DIGITAL SCREENING MAMMOGRAM 3D/2D WITH CAD: 02/08/2023 CLINICAL: Routine screening. Comparison is made to exams dated: 12/16/2020 mammogram, 05/15/2019 mammogram, and 04/12/2018 mammogram - [facility]. There are scattered areas of fibroglandular density in both breasts (category b / 25%-50% glandular tissue). Current study was also evaluated with a Computer Aided Detection (CAD) system. No significant masses, calcifications, or other findings are seen in either breast. There has been no significant interval change. IMPRESSION: NEGATIVE There is no mammographic evidence of malignancy. A 1 year screening mammogram is recommended. Based on the Tyrer Cuzick model (a risk assessment model) the patient's lifetime risk is 0.5% and her 10 year risk is 0.0%. According to the ACR, ACS, and NCCN guidelines, an annual breast MRI exam along with mammogram is recommended if the patient's lifetime risk is 20% or greater. This exam was interpreted at Station ID: [id number]. NOTE: For mammograms, a report in lay terms will be sent to the patient. Approximately 15% of breast malignancies will not be visualized mammographically. In the management of a palpable breast mass, a negative mammogram must not discourage biopsy of a clinically suspicious lesion. Electronically Signed By: Ovidio sequeira/kusum:02/08/2023 14:29:54 copy to: Stacia Johnson letter sent: Normal Exam ACR BI-RADS Category 1: Negative [id number]
== END ==
PROVIDERS: Family Provider Family Medicine; PCP Family Medicine; Referring Provider Family Medicine; Visit Provider Family Medicine
DX: Z12.31 Encounter for screening mammogram for malignant neoplasm of breast (principal)
CPT/HCPCS: 77063; 77067

== ENCOUNTER → 2023-06-13 07:10 | Outpatient (CLI) | payer MEDICARE, SELFPAY ==
[2023-06-13 08:08] LABS: Add Manual Diff / Slide Review NO; Basophils Absolute Auto 0 /uL (0-100); Basophils Percent Auto 0.9 % (0-2); Eosinophils Absolute Auto 400 /uL (0-450); Eosinophils Percent Auto 6.9 % (2-4); Hematocrit 29.6 % (36-46); Hemoglobin 9.7 g/dL (12.0-16.0); Lymphocytes Absolute Auto 1300 /uL (1100-4500); Lymphocytes Percent Auto 25.5 % (25-40); Mean Corpuscular HGB Conc 32.8 % (30-36); Mean Corpuscular Hemoglobin 26.4 PG (26-34); Mean Corpuscular Volume 80.5 fL (80-100); Monocytes Absolute Auto 500 /uL (0-900); Neutrophils Absolute Auto 3000 /uL (1500-7000); Neutrophils Percent Auto 57.7 % (50-75); Platelet Count 276 X10^3/uL (150-400); Red Blood Cell Count 3.68 X10^6/uL (4.0-5.2); Red Cell Distribution Width 14.8 % (11.6-14.8); White Blood Cell Count 5.2 X10^3/uL (4.5-11.0)
[2023-06-13 08:38] LABS: Alanine Aminotransferase 19 IU/L (<35); Albumin 3.6 g/dL (3.5-5.0); Albumin Globulin Ratio 1.3 (1.0-2.8); Alkaline Phosphatase 58 U/L (38-126); Aspartate Aminotransferase 22 IU/L (14-36); BUN Creatinine Ratio 47.5 (6-22); Bilirubin Total 0.7 mg/dL (0.2-1.3); Blood Urea Nitrogen 28 mg/dL (7-17); Calcium 9.1 mg/dL (8.4-10.2); Carbon Dioxide 26 mmol/L (22-32); Chloride 104 mmol/L (98-107); Estimated Glomerular Filt Rate > 60 mL/min (>60); Globulin 2.7 g/dL (1.7-4.1); Glucose 94 mg/dL (80-110); HEMOLYSIS < 15 (0-50); Potassium 4.3 mmol/L (3.4-5.1); Sodium 135 mmol/L (137-145); Total Protein 6.3 g/dL (6.3-8.2)
[2023-06-13 08:42] LABS: High Sensitivity CRP - Cardiac 1.5 mg/L (1.0-3.0)
[2023-06-13 08:48] LABS: Free T3, Triiodothyronine Free 4.93 pg/mL (2.77-5.27); Free T4, Direct Thyroxine 1.37 ng/dL (0.78-2.19)
[2023-06-13 08:49] LABS: Vitamin D 25 Hydroxy (D3) 33.4 ng/mL (30.0-100.0)
[2023-06-13 09:01] LABS: Thyroid Stimulating Hormone 2.43 uIU/mL (0.47-4.68)
== END ==
PROVIDERS: Family Provider Family Medicine; PCP Family Medicine; Referring Provider Family Medicine; Visit Provider Family Medicine
DX: E03.9 Hypothyroidism, unspecified (principal); E55.9 Vitamin D deficiency, unspecified; I35.0 Nonrheumatic aortic (valve) stenosis; Z95.2 Presence of prosthetic heart valve; M62.838 Other muscle spasm; M81.0 Age-related osteoporosis without current pathological fracture
CPT/HCPCS: 36415; 80053; 82306; 84439; 84443; 84481; 85025; 86140

== ENCOUNTER → 2023-08-08 11:07 | Outpatient (CLI) | payer MEDICARE, SELFPAY ==
[2023-08-08 12:06] LABS: Add Manual Diff / Slide Review NO; Basophils Absolute Auto 100 /uL (0-100); Basophils Percent Auto 0.8 % (0-2); Eosinophils Absolute Auto 300 /uL (0-450); Eosinophils Percent Auto 3.6 % (2-4); Hematocrit 33.7 % (36-46); Hemoglobin 10.9 g/dL (12.0-16.0); Lymphocytes Absolute Auto 1300 /uL (1100-4500); Lymphocytes Percent Auto 17.9 % (25-40); Mean Corpuscular HGB Conc 32.4 % (30-36); Mean Corpuscular Hemoglobin 26.5 PG (26-34); Mean Corpuscular Volume 81.9 fL (80-100); Monocytes Absolute Auto 600 /uL (0-900); Neutrophils Absolute Auto 5000 /uL (1500-7000); Neutrophils Percent Auto 69.7 % (50-75); Platelet Count 276 X10^3/uL (150-400); Red Blood Cell Count 4.11 X10^6/uL (4.0-5.2); Red Cell Distribution Width 17.7 % (11.6-14.8); White Blood Cell Count 7.2 X10^3/uL (4.5-11.0)
[2023-08-08 12:21] LABS: HEMOLYSIS < 15 (0-50); Iron 55 ug/dL (37-170)
[2023-08-08 12:34] LABS: Percent Iron Saturation 15 % (15-50); Total Iron Binding Capacity 364 ug/dL (265-497); Transferrin 316 mg/dL (206-381)
[2023-08-08 12:46] LABS: Ferritin 14 ng/mL (11-264)
== END ==
PROVIDERS: Family Provider Family Medicine; PCP Family Medicine; Referring Provider Family Medicine; Visit Provider Family Medicine
DX: D64.9 Anemia, unspecified (principal)
CPT/HCPCS: 36415; 82728; 83540; 83550; 85025

== ENCOUNTER 2023-08-29 10:15 | Outpatient (RCR) | payer MEDICARE, SELFPAY | END 2023-08-29 12:15 | LOC: CAR 10:15 | PROVIDERS: Family Provider Family Medicine; PCP Family Medicine; Referring Provider Internal Medicine Interventional Cardiology; Visit Provider Internal Medicine Interventional Cardiology | DX: Z95.2 Presence of prosthetic heart valve (principal) | CPT/HCPCS: 93798 ==

== ENCOUNTER → 2023-11-16 10:14 | Outpatient (CLI) | payer MEDICARE, SELFPAY ==
--- NOTE | 2023-11-16 10:17 | DI.RAD.S_ITS ---
Bone Density Report Name: AVRIL BRANCH Age: 83 Sex: Female Ethnicity: White Date of : 1940 Indication: postmenopausal osteoporosis; monitoring treatment; prior fracture; Referring Provider: RICCARDO PICKETT Study: Bone densitometry was performed. Exam Date: November 16, 2023 Accession number: [id number] Bone Density: Region BMD T-score Z-score Classification AP Spine(L1-L4) 0.884 -1.5 1.3 Osteopenia Femoral Neck (Left) 0.613 -2.1 0.3 Osteopenia Total Hip (Left) 0.574 -3.0 -0.8 Osteoporosis Femoral Neck (Right) 0.600 -2.2 0.2 Osteopenia Total Hip (Right) 0.653 -2.4 -0.1 Osteopenia Total Hip Mean 0.614 -2.7 -0.5 Osteoporosis World Health Organization criteria for BMD impression classify patients as: Normal (T-score at or above -1.0), Osteopenia (T-score between -1.0 and -2.5), or Osteoporosis (T-score at or below -2.5). 10-year Fracture Risk: FRAX not reported because: Some T-score for Spine Total or Hip Total or Femoral Neck at or below -2.5 Prior hip or vertebral fracture Treated for osteoporosis Previous Exams: -- Region Exam Age BMD T-score BMD Change BMD Change Date g/cm2 vs Baseline vs Previous -- AP Spine (L1-L4) 11/16/2023 83 0.884 -1.5 0.032 (3.8%)# 0.007 (0.8%)# 11/14/2021 81 0.878 -1.5 0.025 (3.0%)# 0.028 (3.3%)# 05/15/2019 79 0.850 -1.8 -0.003 (-0.3%) -0.067 (-7.3%)* 02/19/2017 76 0.917 -1.2 0.064 (7.5%)* -0.026 (-2.7%)* 02/12/2015 74 0.942 -1.0 0.090 (10.6%)* -0.057 (-5.7%)* 01/25/2011 70 0.999 -0.4 0.147 (17.2%)* 0.039 (4.0%)* 01/07/2008 67 0.961 -0.8 0.108 (12.7%)* 0.108 (12.7%)* 07/13/2004 64 0.852 -1.8 Total Hip(Left) 11/16/2023 83 0.574 -3.0 -0.176 (-23.5%)# -0.018 (-3.0%)# 11/14/2021 81 0.592 -2.9 -0.159 (-21.2%)# -0.061 (-9.4%)# 05/15/2019 79 0.653 -2.4 -0.098 (-13.0%)* -0.056 (-7.9%)* 02/19/2017 76 0.709 -1.9 -0.042 (-5.5%)* -0.052 (-6.8%)* 02/12/2015 74 0.761 -1.5 0.010 (1.3%) -0.040 (-5.0%)* 01/25/2011 70 0.800 -1.2 0.050 (6.6%)* 0.033 (4.2%)* 01/07/2008 67 0.768 -1.4 0.017 (2.3%) 0.017 (2.3%) 07/13/2004 64 0.751 -1.6 Total Hip(Right) 11/16/2023 83 0.653 -2.4 -0.115 (-14.9%)# 0.004 (0.5%)# 11/14/2021 81 0.649 -2.4 -0.118 (-15.4%)# -0.025 (-3.7%)# 05/15/2019 79 0.675 -2.2 -0.093 (-12.1%)* -0.066 (-8.9%)* 02/19/2017 76 0.741 -1.7 -0.027 (-3.5%) -0.016 (-2.2%) 02/12/2015 74 0.757 -1.5 -0.011 (-1.4%) -0.022 (-2.8%) 01/25/2011 70 0.778 -1.3 0.011 (1.4%) -0.016 (-2.0%) 01/07/2008 67 0.794 -1.2 0.027 (3.5%) 0.027 (3.5%) 07/13/2004 64 0.768 -1.4 -- *Denotes significance at 95% confidence level, LSC for AP Spine = 0.022 g/cm2, LSC for Total Hip = 0.027 g/cm2 # Denotes dissimilar scan types or analysis methods Impression: The patient has established osteoporosis, based on the Left Total Hip T-score and the existence of a prior fracture. The patient has risk factors, including: previous fracture. No significant bone loss was observed. Discussion: PATIENT UNDER TREATMENT WITH NO SIGNIFICANT BMD LOSS SINCE LAST EXAM. In an untreated patient, BMD typically declines with age. A lack of decline or gain is usually a sign that treatment is efficacious and fracture risk is reduced. It is important to ask patients whether they are taking their medications and to encourage continued and appropriate compliance with their osteoporosis therapies to reduce fracture risk. It is also important to review their risk factors and encourage appropriate calcium and vitamin D intakes, exercise, fall prevention and other lifestyle measures. Follow-Up: Consider a repeat BMD and Vertebral Fracture Assessment (VFA) exam in 2 years or sooner if medically necessary, to reassess this patient's status. Reported by: VICENTE ROBBINS M.D. on 11/16/2023 11:36:00 AM.
== END ==
LOC: RAD 10:15
PROVIDERS: Family Provider Family Medicine; PCP Family Medicine; Referring Provider Family Medicine; Visit Provider Family Medicine
DX: M81.0 Age-related osteoporosis without current pathological fracture (principal)
CPT/HCPCS: 77080

== ENCOUNTER → 2023-11-22 08:50 | Outpatient (CLI) | payer MEDICARE, SELFPAY ==
--- NOTE | 2023-11-22 08:51 | DI.CT.S_ITS ---
PROCEDURE: CT LUMBAR SPINE WO CON INDICATIONS: evaluate for worsening spinal stenosis TECHNIQUE: Noncontrast 3 mm thick sections acquired from the T12 level to the sacrum. Sagittal and coronal reformats were constructed. For radiation dose reduction, the following was used: automated exposure control. COMPARISON: [facility], CT, CT LUMBAR SPINE WO CON, 01/23/2022, 13:53. FINDINGS: Image quality: Excellent. Bones: Moderate levocurvature centered at L2-L3. 6 mm anterolisthesis L2 on L3. 7 mm anterolisthesis L3 on L4. 6 mm anterolisthesis L4 on L5. Deformity of the S2 vertebral body from the or zonal component of sacral insufficiency fractures. No acute vertebral body compression fractures. No suspicious lytic or blastic bony lesions. No pars defects. T12-L1: No canal stenosis or foraminal stenosis. L1-L2: No canal stenosis or foraminal stenosis. L2-L3: Anterolisthesis of L2 on L3. Prominent facet and ligament hypertrophy. Moderate canal stenosis. Hmkw-yp-[id number] left foraminal stenosis. Findings are stable. L3-L4: Anterolisthesis of L3 on L4. Posterior disc bulge. Prominent facet and ligament hypertrophy. Severe canal stenosis. Canal stenosis appears progressed. Severe right foraminal narrowing with right foraminal L3 nerve root impingement. Moderate left foraminal narrowing with flattening deformity on the exiting left L3 nerve root. L4-L5: Anterolisthesis of L4 on L5. Prominent facet and ligament hypertrophy. Moderate to severe canal stenosis appears somewhat progressed. Eesk-yt-[id number] bilateral foraminal stenosis. L5-S1: No canal stenosis. Moderate left foraminal stenosis. Sacrum: Bilateral sacral insufficiency fractures have healed. Soft tissues: No retroperitoneal masses or hematomas. Visualized aorta is normal in caliber. IMPRESSION: 1. Interval healing of bilateral sacral insufficiency fractures with a horizontal component involving S2. 2. No acute compression fractures. 3. Moderate levocurvature. 4. Grade 1 anterolisthesis of L2 on L3, L3 on L4, and L4 on L5. 5. Prominent underlying multilevel facet arthropathy 6. Progressive canal stenosis at L3-L4 and L4-L5. Canal stenosis is moderate at L2-L3, severe at L3-L4, and moderate to severe at L4-L5. 7. Multilevel foraminal narrowing as described above, including severe right foraminal narrowing at L3-L4. Dictated by: Tristen Rebollar M.D. on 11/22/2023 at 9:55 Approved by: Tristen Rebollar M.D. on 11/22/2023 at 10:14
== END ==
LOC: CT 08:51
PROVIDERS: Family Provider Family Medicine; PCP Family Medicine; Referring Provider Family Medicine; Visit Provider Family Medicine
DX: M51.16 Intervertebral disc disorders with radiculopathy, lumbar region (principal); M43.16 Spondylolisthesis, lumbar region; M48.061 Spinal stenosis, lumbar region without neurogenic claudication; M84.48XD Pathological fracture, other site, subsequent encounter for fracture with routine healing
CPT/HCPCS: 72131

== ENCOUNTER 2023-11-22 10:39 | Emergency (ER) | payer MEDICARE, SELFPAY ==
[2023-11-22 10:45] VITALS: TEMP 36.9; BMI 26.9
[2023-11-22 10:54] VITALS: BP 125/58; PULSE 62; RESP 19; O2SAT 98
--- NOTE | 2023-11-22 10:54 | DI.RAD.S_ITS ---
PROCEDURE: XR CHEST 1V INDICATIONS: Shortness of breath TECHNIQUE: One view of the chest was acquired. COMPARISON: [facility], , CHEST 2 VIEW, 12/20/2011, 13:37. FINDINGS: Surgical changes and devices: Valve replacement. Lungs and pleura: Lungs are clear. Trace left effusion. Mediastinum: Retrocardiac lucency is present suggestive hiatal hernia.. Heart size is enlarged. Bones and chest wall: No suspicious bony lesions. Overlying soft tissues appear unremarkable. IMPRESSION: Minimal left effusion. Dictated by: Alondra Ansari M.D. on 11/22/2023 at 11:39 Approved by: Alondra Ansari M.D. on 11/22/2023 at 11:39
[2023-11-22 11:00] VITALS: PULSE 62; RESP 23; O2SAT 100
[2023-11-22 11:01] VITALS: BP 107/53; PULSE 61; RESP 21; TEMP 36.9; O2SAT 100
[2023-11-22 11:26] LABS: Add Manual Diff / Slide Review NO; Basophils Absolute Auto 100 /uL (0-100); Basophils Percent Auto 0.9 % (0-2); Eosinophils Absolute Auto 200 /uL (0-450); Eosinophils Percent Auto 3.9 % (2-4); Hemoglobin 11.9 g/dL (12.0-16.0); Lymphocytes Absolute Auto 1300 /uL (1100-4500); Lymphocytes Percent Auto 21.1 % (25-40); Mean Corpuscular HGB Conc 33.1 % (30-36); Mean Corpuscular Hemoglobin 28.6 PG (26-34); Mean Corpuscular Volume 86.5 fL (80-100); Monocytes Absolute Auto 500 /uL (0-900); Monocytes Percent Auto 7.7 % (3-14); Neutrophils Absolute Auto 4100 /uL (1500-7000); Neutrophils Percent Auto 66.4 % (50-75); Platelet Count 247 X10^3/uL (150-400); Red Blood Cell Count 4.16 X10^6/uL (4.0-5.2); Red Cell Distribution Width 15.1 % (11.6-14.8); White Blood Cell Count 6.2 X10^3/uL (4.5-11.0)
[2023-11-22 11:38] LABS: Alanine Aminotransferase 19 IU/L (<35); Albumin 4.1 g/dL (3.5-5.0); Albumin Globulin Ratio 1.4 (1.0-2.8); Alkaline Phosphatase 69 U/L (38-126); Aspartate Aminotransferase 24 IU/L (14-36); BUN Creatinine Ratio 58.8 (6-22); Bilirubin Total 0.7 mg/dL (0.2-1.3); Blood Urea Nitrogen 30 mg/dL (7-17); Calcium 8.9 mg/dL (8.4-10.2); Carbon Dioxide 24 mmol/L (22-32); Chloride 107 mmol/L (98-107); Creatine Kinase 47 U/L (30-135); Estimated Glomerular Filt Rate > 60 mL/min (>60); Globulin 2.9 g/dL (1.7-4.1); Glucose 99 mg/dL (80-110); HEMOLYSIS < 15 (0-50); Lipase 114 U/L (23-300); Potassium 4.1 mmol/L (3.4-5.1); Sodium 135 mmol/L (137-145)
[2023-11-22 11:50] LABS: NT-proBNP (BNP-Adult 18+) 336 pg/mL (<450); Troponin I < 0.012 ng/mL (0.01-0.034)
--- NOTE | 2023-11-22 11:53 | ED_ITS ---
HPI - General Adult General Chief complaint: Dizziness Stated complaint: has Pace maker, SOB and light headed Time Seen by Provider: 11/22/23 10:53 Source: patient Mode of arrival: Ambulatory Limitations: no limitations History of Present Illness HPI narrative: Patient is an 83-year-old female. In March of last year underwent a aortic valve replacement and pacemaker placement. She was here at the hospital today for x-rays of her lumbar spine. She was then scheduled to go to physical therapy. She states that she felt more fatigued than normal potentially yesterday afternoon and this morning. Somewhat more short of breath and lightheaded. Since they were here in the hospital they stop by the emergency department. When I went to evaluate the patient she stated that she was feeling much better. Denies chest pain, palpitations, headache, shortness of breath, cough. No lower extremity swelling. Related Data Home Medications Medication Instructions Recorded Confirmed cyclosporine 0.05 % eye drops in a 0.4 ml OP Q12HP ##0 05/17/11 11/07/23 dropperette (Restasis) metoprolol succinate 25 mg 25 mg PO DAILY 01/28/18 11/07/23 tablet,extended release 24 hr ascorbic acid (vitamin C) 500 mg 500 mg PO DAILY 12/26/21 11/07/23 tablet clopidogrel 75 mg tablet 75 mg PO DAILY 03/26/23 11/07/23 Previous Rx's Medication Instructions Recorded estradiol 2 mg (7.5 mcg/24 hour) 1 vag ring vaginal [id number] #1 ea 06/25/23 vaginal ring (Estring) progesterone 50 - 75 mg topical DAILY #1 applic 09/25/23 Allergies Allergy/AdvReac Type Severity Reaction Status Date / Time Sulfa (Sulfonamide Allergy Mild ITCHY, Verified 11/07/23 10:59 Antibiotics) IRRITABLE, [SULFA (SULFONAMIDE MOOD CHANGE ANTIBIOTICS)] Review of Systems Review of Systems Narrative: See HPI Patient History Medical History Osteopenia (02/05/15) 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 Shoulder pain Osteopenia (~1999) History of wrist fracture (~1950) Arthritis of foot (~1999) Cervical spine disease (~2013) Dry skin Chickenpox Measles Mumps Hearing loss Cataracts, bilateral Urinary incontinence, urge (~1999) Hemorrhoids (~1959) Murmur (~2010) Hyperlipidemia (08/29/13) Urinary incontinence (06/02/11) Surgical History Anesthesia complication Surgical procedure planned (~1964) History of bladder suspension procedure (~2001) Pilonidal cyst (~1999) History of vein stripping (~1965) History of knee replacement (~2011) History of knee replacement (~2010) Status post hysterectomy with oophorectomy (~1979) History of cataract removal with insertion of prosthetic lens Status post appendectomy (~1949) History of tonsillectomy (~1949) Family History Father No problems noted. Mother No problems noted. Grandfather No problems noted. Social History Smoking Status: Never smoker alcohol intake: never substance use type: does not use Smoking Status: Never smoker alcohol intake frequency: holidays/special occasions only Alcohol type: beer Substance Use Type: does not use Exam Initial Vital Signs Initial Vital Signs: Vital Signs Temperature 98.4 F 11/22/23 10:45 Const General: cooperative, comfortable and No ill appearing HENMT Head: normal to inspection and normocephalic Mouth: oral mucosae normal Resp Effort & Inspection: normal respiratory effort Auscultation: clear to auscultation bilaterally Cardio Rate: regular rate Rhythm: regular rhythm Heart Sounds: no murmurs GI Inspection: normal to inspection Skin General: no rashes or lesions noted Neuro General: patient alert, patient awake and moves all extremities Speech: speech normal Extrem General: normal to inspection and capillary refill normal Course Orders Ordered: ED Orders 11/22/23 10:54 XR chest 1V Stat 11/22/23 10:58 EKG-12 Lead Stat 11/22/23 11:18 Complete Blood Count AUTO DIFF Stat Comprehensive Metabolic Panel Stat Lipase Stat NT-proBNP (BNP-Adult 18+) Stat Troponin & CK Cardiac Panel Stat Vital Signs Vital signs: Vital Signs - 8 hr 11/22/23 13:32 Temperature 98.6 F Pulse Rate 60 Respiratory Rate 20 Blood Pressure 118/78 Pulse Oximetry 99 Oxygen Delivery Method Room Air Medical Decision Making Lab Data Lab results reviewed: Yes I reviewed the patient's lab results. 11/22/23 11:18 11/22/23 11:18 Labs: Lab Results 11/22/23 Range/Units 11:18 WBC 6.2 (4.5-11.0) X10^3/uL RBC 4.16 (4.0-5.2) X10^6/uL Hgb 11.9 L (12.0-16.0) g/dL Hct 36.0 (36-46) % MCV 86.5 (80-100) fL MCH 28.6 (26-34) PG MCHC 33.1 (30-36) % RDW 15.1 H (11.6-14.8) % Plt Count 247 (150-400) X10^3/uL Neut % (Auto) 66.4 (50-75) % Lymph % (Auto) 21.1 L (25-40) % Menard % (Auto) 7.7 (3-14) % Eos % (Auto) 3.9 (2-4) % Baso % (Auto) 0.9 (0-2) % Neut # (Auto) 4100 (0882-7793) /uL Lymph # (Auto) 1300 (5861-7213) /uL Menard # (Auto) 500 (0-900) /uL Eos # (Auto) 200 (0-450) /uL Baso # (Auto) 100 (0-100) /uL Sodium 135 L (137-145) mmol/L Potassium 4.1 (3.4-5.1) mmol/L Chloride 107 (98-107) mmol/L Carbon Dioxide 24 (22-32) mmol/L BUN 30 H (7-17) mg/dL Creatinine 0.51 L (0.52-1.04) mg/dL Estimated GFR > 60 (>60) mL/min BUN/Creatinine Ratio 58.8 H (6-22) Glucose 99 (80-110) mg/dL Calcium 8.9 (8.4-10.2) mg/dL Total Bilirubin 0.7 (0.2-1.3) mg/dL AST 24 (14-36) IU/L ALT 19 (<35) IU/L Alkaline Phosphatase 69 (38-126) U/L Total Creatine Kinase 47 (30-135) U/L Troponin I < 0.012 (0.01-0.034) ng/mL NT-Pro-B Natriuret Pep 336 (<450) pg/mL Total Protein 7.0 (6.3-8.2) g/dL Albumin 4.1 (3.5-5.0) g/dL Globulin 2.9 (1.7-4.1) g/dL Albumin/Globulin Ratio 1.4 (1.0-2.8) Lipase 114 (23-300) U/L Imaging Data Chest x-ray: Radiologist's Impression: PROCEDURE: XR CHEST 1V INDICATIONS: Shortness of breath TECHNIQUE: One view of the chest was acquired. COMPARISON: [facility], , CHEST 2 VIEW, 12/20/2011, 13:37. FINDINGS: Surgical changes and devices: Valve replacement. Lungs and pleura: Lungs are clear. Trace left effusion. Mediastinum: Retrocardiac lucency is present suggestive hiatal hernia.. Heart size is enlarged. Bones and chest wall: No suspicious bony lesions. Overlying soft tissues appear unremarkable. IMPRESSION: Minimal left effusion. ECG Data Attestation: I personally reviewed and interpreted this ECG as follows: Interpretation: Sinus bradycardia Ventricular rate of 59 Normal axis QRS [address] T wave changes MDM Narrative Medical decision making narrative: Chest x-ray shows no signs of pneumonia labs are unremarkable. Troponins negative. She states she is feeling much better. There was no signs of fluid overload. Low suspicion for ACS. Low suspicion for pneumonia. Clinically not in heart failure. We will hold on further workup for now and have patient continue to take all of her current medications. Will discharge home with follow-up with her primary doctor. She was given return precautions. She expressed understanding and agreement. Discharge Plan Departure Patient Disposition: Home Clinical Impression: Dizziness Instructions: DI for Dizziness-Nonvertigo Activity Restrictions/Additional Instructions: Recommend that you continue to take all of your medications as directed. Keep all of your scheduled medical appointments. Return to the emergency department for new or worsening symptoms. Prescriptions: No Action cyclosporine [Restasis] 1 EACH dropperette 0.4 ml OP Q12HP Qty: 0 Estring 2 mg (7.5 mcg /24 hour) ring 1 vag ring vaginal [id number] Qty: 1 3RF Hold Instructions: backordered. clopidogrel 75 mg tablet 75 mg PO DAILY metoprolol succinate 25 mg tablet extended release 24 hr 25 mg PO DAILY ascorbic acid (vitamin C) 500 mg tablet 500 mg PO DAILY progesterone 50 - 75 mg topical DAILY Qty: 1 0RF Referrals: Triny Garcia DO [Primary Care Provider] - Stand Alone Forms: Patient Portal/API
[2023-11-22 13:32] VITALS: BP 118/78; PULSE 60; RESP 20; TEMP 37; O2SAT 99
== END 2023-11-22 13:35 | disposition home or self-care (01) ==
PROVIDERS: Emergency Provider Emergency Medicine; Family Provider Family Medicine; PCP Family Medicine
DX: R42 Dizziness and giddiness (principal); R06.02 Shortness of breath; Z79.01 Long term (current) use of anticoagulants; Z95.2 Presence of prosthetic heart valve; Z95.0 Presence of cardiac pacemaker; M51.16 Intervertebral disc disorders with radiculopathy, lumbar region; M43.16 Spondylolisthesis, lumbar region; M48.061 Spinal stenosis, lumbar region without neurogenic claudication; M84.48XD Pathological fracture, other site, subsequent encounter for fracture with routine healing
CPT/HCPCS: 36415; 71045; 72131; 80053; 82550; 83690; 83880; 84484; 85025; 93005; 99283; 99284

== ENCOUNTER → 2024-03-03 12:31 | Outpatient (CLI) | payer MEDICARE, SELFPAY ==
[2024-03-03 14:12] LABS: Add Manual Diff / Slide Review NO; Basophils Absolute Auto 0 /uL (0-100); Basophils Percent Auto 0.6 % (0-2); Eosinophils Absolute Auto 200 /uL (0-450); Eosinophils Percent Auto 3.4 % (2-4); Hematocrit 38.4 % (36-46); Hemoglobin 12.8 g/dL (12.0-16.0); Lymphocytes Absolute Auto 1400 /uL (1100-4500); Lymphocytes Percent Auto 21.3 % (25-40); Mean Corpuscular HGB Conc 33.4 % (30-36); Mean Corpuscular Hemoglobin 29.9 PG (26-34); Mean Corpuscular Volume 89.7 fL (80-100); Monocytes Absolute Auto 400 /uL (0-900); Monocytes Percent Auto 6.7 % (3-14); Neutrophils Absolute Auto 4300 /uL (1500-7000); Platelet Count 259 X10^3/uL (150-400); Red Blood Cell Count 4.28 X10^6/uL (4.0-5.2); Red Cell Distribution Width 14.8 % (11.6-14.8); White Blood Cell Count 6.3 X10^3/uL (4.5-11.0)
[2024-03-03 14:43] LABS: BUN Creatinine Ratio 44.8 (6-22); Blood Urea Nitrogen 26 mg/dL (7-17); Calcium 8.9 mg/dL (8.4-10.2); Carbon Dioxide 23 mmol/L (22-32); Chloride 104 mmol/L (98-107); Estimated Glomerular Filt Rate > 60 mL/min (>60); Glucose 90 mg/dL (80-110); HEMOLYSIS < 15 (0-50); Potassium 4.6 mmol/L (3.4-5.1); Sodium 134 mmol/L (137-145)
== END ==
PROVIDERS: Family Provider Family Medicine; PCP Family Medicine; Referring Provider Internal Medicine Interventional Cardiology; Visit Provider Internal Medicine Interventional Cardiology
DX: I35.0 Nonrheumatic aortic (valve) stenosis (principal)
CPT/HCPCS: 36415; 80048; 85025

== ENCOUNTER 2024-12-24 10:06 | Inpatient (IN) | payer MEDICARE, SELFPAY ==
[2024-12-24] VITALS (77 sets, daily range): BP systolic 79–131; BP diastolic 42–71; PULSE 63–86; RESP 12–28; TEMP 36.4; O2SAT 89–100; BMI 26.9
--- NOTE | 2024-12-24 10:18 | DI.RAD.S_ITS ---
PROCEDURE: XR CHEST 1V INDICATIONS: Chest Pain TECHNIQUE: One view of the chest was acquired. COMPARISON: [facility], CR, XR CHEST 1V, 11/22/2023, 11:18. FINDINGS: Surgical changes and devices: Prosthetic heart valve and lead less pacer are seen Lungs and pleura: Left basilar atelectasis is noted. No focal infiltrate. No pleural effusions or pneumothorax. Mediastinum: Mediastinal contours appear normal. Heart size is normal. Bones and chest wall: No suspicious bony lesions. Suggestion of moderate to large hiatal hernia. IMPRESSION: Moderate to large hiatal hernia with left basilar atelectasis. No focal infiltrate, pleural effusion or pneumothorax. Dictated by: Colton Ivey M.D. on 12/24/2024 at 10:36 Approved by: Colton Ivey M.D. on 12/24/2024 at 10:39
--- NOTE | 2024-12-24 10:23 | PC.NURSE ---
Patient blood pressure trending down off epi drip. Dr Chaidez aware. Verbal order for 1L normal saline and continue to hold epi.
--- NOTE | 2024-12-24 10:25 | EKG_ITS ---
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
[2024-12-24] MEDS: SODIUM CHLORIDE 0.9% 1,000 ML 1000 ML IV ×2 (10:27→11:29)
[2024-12-24 10:30] LABS: INR 1.1 (0.9-1.3); Prothrombin Time 12.2 SECONDS (9.4-12.5)
--- NOTE | 2024-12-24 10:31 | ED.SYNCOPE ---
HPI - Syncope General Chief Complaint: Syncope Stated Complaint: Syncope/Unresponsive Time Seen by Provider: 12/24/24 10:29 Source: EMS Mode of arrival: EMS History of Present Illness HPI narrative: 84-year-old female history of Pacemaker, TAVR procedure on March 13, 2023 presents today with a witnessed syncopal so while on the toilet seat by and family. Initially was called to the restroom for her being itchy all over after taking amoxicillin for dental prophylaxis. Subsequently she passed out on the toilet seat. Of note, this did happen before. According to family this happened to 3 months ago almost identical situation where she was admitted to [facility]. Patient denies headache, dizziness, blurred vision, difficulty speaking, weakness in arms, or legs, chest pain, shortness breath, cough, nausea, vomiting, diarrhea. Brought in by EMS given epinephrine 6 and then follow up by epi drip at for an hour for low blood pressure prior to arrival. Other than what is stated 14 point review of system is negative Related Data Home Medications Medication Instructions Recorded Confirmed cyclosporine 0.05 % eye drops in a 0.4 ml OP Q12HP ##0 05/17/11 10/27/24 dropperette (Restasis) metoprolol succinate 25 mg 25 mg PO DAILY 01/28/18 10/27/24 tablet,extended release 24 hr ascorbic acid (vitamin C) 500 mg 500 mg PO DAILY 12/26/21 10/27/24 tablet [id number] 6 mg-30 tab PO 12/14/23 10/27/24 mg-50 mg tablet (Medi-Doze) aspirin 81 mg tablet,delayed 81 mg PO DAILY 03/28/24 10/27/24 release fluorouracil 5 % topical cream 1 applic topical BID 03/28/24 10/27/24 [employer] Rescue Sleep PO 08/28/24 10/27/24 Natural Sleep Previous Rx's Medication Instructions Recorded nitrofurantoin macrocrystal 50 mg 50 mg PO ONCE PM #90 caps 05/26/24 capsule estradiol 2 mg (7.5 mcg/24 hour) 1 vag ring vaginal [id number] #1 ea 08/26/24 vaginal ring (Estring) Allergies Allergy/AdvReac Type Severity Reaction Status Date / Time Sulfa (Sulfonamide Allergy Mild ITCHY, Verified 12/24/24 10:17 Antibiotics) IRRITABLE, [SULFA (SULFONAMIDE MOOD CHANGE ANTIBIOTICS)] Review of Systems Review of Systems ROS Unobtainable: All systems reviewed & are unremarkable except as noted in HPI and below Patient History Medical History (Updated 12/24/24 @ 17:32 by Abhishek Chaidez, ) History of chronic urinary tract infection TIA (transient ischemic attack) (~05/07/24) Anemia (~06/2023) Chronic left shoulder pain Aortic valve stenosis, severe Recurrent UTI (urinary tract infection) Muscle spasm of left lower extremity Urinary retention Urge incontinence Varicose veins of legs Osteopenia (02/05/15) 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 Shoulder pain Osteopenia (~1999) History of wrist fracture (~1949) Arthritis of foot (~1999) Cervical spine disease (~2013) Dry skin Chickenpox Measles Mumps Hearing loss Cataracts, bilateral Urinary incontinence, urge (~1999) Hemorrhoids (~1959) Murmur (~2010) Hyperlipidemia (08/29/13) Urinary incontinence (06/02/11) Surgical History (System 12/10/24 @ 10:22 by Mandeep Eagle) S/P placement of cardiac pacemaker S/P TAVR (transcatheter aortic valve replacement) (~2022) Anesthesia complication Surgical procedure planned (~1964) History of bladder suspension procedure (~2001) Pilonidal cyst (~1999) History of vein stripping (~1965) History of knee replacement (~2011) History of knee replacement (~2010) Status post hysterectomy with oophorectomy (~1979) History of cataract removal with insertion of prosthetic lens Status post appendectomy (~1949) History of tonsillectomy (~1949) Family History (System 12/10/24 @ 10:22 by Mandeep Eagle) Father No problems noted. Mother No problems noted. Grandfather No problems noted. Social History (System 12/10/24 @ 10:22 by Mandeep Eagle) marital status: number of children: 4 Smoking Status: Never smoker alcohol intake: never substance use type: does not use caffeine: Yes Smoking Status: Never smoker alcohol intake frequency: holidays/special occasions only Alcohol type: beer Exam Narrative Exam Narrative: GENERAL: [84] year old patient appears stated age. Well-developed patient, in mild distress. HEAD: Atraumatic. Normocephalic. EYES: Pupils equal round and reactive. Extraocular motions intact. No scleral icterus. No injection or drainage. ENT: Nose without bleeding, purulent drainage. Throat without erythema, tonsillar hypertrophy or exudate. Airway patent. NECK: Trachea midline. Non tender CARDIOVASCULAR: Regular rate and rhythm without murmurs, gallops, or rubs. RESPIRATORY: Clear to auscultation. Breath sounds equal bilaterally. No wheezes, rales, or rhonchi. GASTROINTESTINAL: Abdomen soft, non-tender, nondistended. EXTREMITIES: No edema or joint tenderness. BACK: Nontender without deformity or crepitance. No flank tenderness. NEURO: AOx3. GCS 15 nonfocal neuro exam, [id number], opposite heel to raza, negative pronator drift, 5/5 upper and lower extremity SKIN: No rash or erythema of visible areas Initial Vital Signs Initial Vital Signs: Vital Signs Pulse Rate 85 12/24/24 10:08 Respiratory Rate 12 12/24/24 10:08 Blood Pressure 115/58 L 12/24/24 10:08 Pulse Oximetry 97 12/24/24 10:08 Oxygen Delivery Method Nasal Cannula 12/24/24 10:08 Oxygen Flow Rate 2 12/24/24 10:08 Course Orders Ordered: ED Orders 12/24/24 10:00 Complete Blood Count AUTO DIFF Stat Comprehensive Metabolic Panel Stat Lactate (Lactic Acid) Stat Lipase Stat Magnesium Stat NT-proBNP (BNP-Adult 18+) Stat PTT Partial Thromboplastin Colt Stat Prothrombin Time INR Stat Troponin & CK Cardiac Panel Stat 12/24/24 10:18 XR chest 1V Stat EKG-12 Lead Stat RT Consult Eval and Treat NOW 12/24/24 10:24 Blood Culture Stat 12/24/24 10:50 CT angio chest PE protocol Stat CT head/brain wo con Stat Sodium Chloride (Normal Saline 0.9%) 1,000 mls @ 1,000 mls/hr IV BOLUS ONE Stop: 12/24/24 12:24 Last Admin: 12/24/24 11:29 Dose: 1,000 mls/hr Documented By: TAMMIE Discontinued Medications Aspirin (Aspirin 81 Mg Chew Tab) 324 mg PO NOW ONE Stop: 12/24/24 10:19 Last Admin: 12/24/24 10:27 Dose: Not Given Documented By: TAMMIE Sodium Chloride (Normal Saline 0.9%) 1,000 mls @ 1,000 mls/hr IV BOLUS ONE Stop: 12/24/24 11:23 Last Infusion: 12/24/24 11:34 Dose: Infused Documented By: Admin: 12/24/24 10:27 Dose: 1,000 mls/hr Documented By: TAMMIE Vital Signs Vital signs: Vital Signs - 8 hr 12/24/24 10:08 12/24/24 10:11 12/24/24 10:12 Pulse Rate 85 83 86 Respiratory Rate 12 Blood Pressure 115/58 L Pulse Oximetry 97 95 95 Oxygen Delivery Method Nasal Cannula Oxygen Flow Rate 2 12/24/24 10:12 12/24/24 10:15 12/24/24 10:15 Pulse Rate 83 Respiratory Rate Blood Pressure 115/58 L 99/54 L Pulse Oximetry 89 L Oxygen Delivery Method Oxygen Flow Rate 12/24/24 10:18 12/24/24 10:18 12/24/24 10:20 Pulse Rate 78 78 Respiratory Rate 20 21 Blood Pressure 86/47 L Pulse Oximetry 99 96 Oxygen Delivery Method Oxygen Flow Rate 12/24/24 10:20 12/24/24 10:25 12/24/24 10:25 Pulse Rate 76 Respiratory Rate 18 Blood Pressure 87/49 L 83/45 L Pulse Oximetry 93 Oxygen Delivery Method Oxygen Flow Rate 12/24/24 10:30 12/24/24 10:30 12/24/24 10:35 Pulse Rate 77 Respiratory Rate 22 Blood Pressure 82/45 L 84/50 L Pulse Oximetry Oxygen Delivery Method Oxygen Flow Rate 12/24/24 10:35 12/24/24 10:40 12/24/24 10:40 Pulse Rate 74 73 Respiratory Rate 20 21 Blood Pressure 81/51 L Pulse Oximetry 100 99 Oxygen Delivery Method Nasal Cannula Oxygen Flow Rate 2 12/24/24 10:45 12/24/24 10:45 12/24/24 10:50 Pulse Rate 75 74 Respiratory Rate 22 20 Blood Pressure 80/52 L Pulse Oximetry 98 95 Oxygen Delivery Method Nasal Cannula Oxygen Flow Rate 2 12/24/24 10:50 12/24/24 10:55 12/24/24 10:55 Pulse Rate 72 Respiratory Rate 19 Blood Pressure 79/42 L 89/54 L Pulse Oximetry 91 Oxygen Delivery Method Oxygen Flow Rate 12/24/24 11:00 12/24/24 11:00 12/24/24 11:05 Pulse Rate 73 72 Respiratory Rate 20 17 Blood Pressure 88/51 L Pulse Oximetry 98 97 Oxygen Delivery Method Nasal Cannula Oxygen Flow Rate 2 12/24/24 11:05 12/24/24 11:30 12/24/24 11:37 Pulse Rate 77 79 Respiratory Rate 18 20 Blood Pressure 91/53 L Pulse Oximetry 97 97 Oxygen Delivery Method Nasal Cannula Oxygen Flow Rate 2 12/24/24 11:37 Pulse Rate Respiratory Rate Blood Pressure 100/55 L Pulse Oximetry Oxygen Delivery Method Oxygen Flow Rate MDM - Syncope Lab Data 12/24/24 10:00 12/24/24 10:00 Labs: Lab Results 12/24/24 Range/Units 10:00 WBC 5.9 (4.5-11.0) X10^3/uL RBC 4.56 (4.0-5.2) X10^6/uL Hgb 13.1 (12.0-16.0) g/dL Hct 40.1 (36-46) % MCV 87.8 (80-100) fL MCH 28.7 (26-34) PG MCHC 32.7 (30-36) % RDW 14.9 H (11.6-14.8) % Plt Count 319 (150-400) X10^3/uL Neut % (Auto) 41.2 L (50-75) % Lymph % (Auto) 48.6 H (25-40) % [place] % (Auto) 7.0 (3-14) % Eos % (Auto) 2.8 (2-4) % Baso % (Auto) 0.4 (0-2) % Neut # (Auto) 2400 (4476-6194) /uL Lymph # (Auto) 2900 (3626-1456) /uL [place] # (Auto) 400 (0-900) /uL Eos # (Auto) 200 (0-450) /uL Baso # (Auto) 0 (0-100) /uL PT 12.2 (9.4-12.5) SECONDS INR 1.1 (0.9-1.3) APTT 33 (25.1-36.5) SECONDS Sodium 135 L (137-145) mmol/L Potassium 4.0 (3.4-5.1) mmol/L Chloride 104 (98-107) mmol/L Carbon Dioxide 18 L (22-32) mmol/L BUN 31 H (7-17) mg/dL Creatinine 0.81 (0.52-1.04) mg/dL Estimated GFR > 60 (>60) mL/min BUN/Creatinine Ratio 38.3 H (6-22) Glucose 187 H (70-99) mg/dL Lactate 3.9 H (0.7-2.1) mmol/L Calcium 9.1 (8.4-10.2) mg/dL Magnesium 2.2 (1.6-2.3) mg/dL Total Bilirubin 1.0 (0.2-1.3) mg/dL AST 34 (14-36) IU/L ALT 28 (<35) IU/L Alkaline Phosphatase 76 (38-126) U/L Total Creatine Kinase 66 (30-135) U/L Troponin I < 0.012 (0.01-0.034) ng/mL NT-Pro-B Natriuret Pep 411 (<450) pg/mL Total Protein 6.9 (6.3-8.2) g/dL Albumin 4.1 (3.5-5.0) g/dL Globulin 2.8 (1.7-4.1) g/dL Albumin/Globulin Ratio 1.5 (1.0-2.8) Lipase 174 (23-300) U/L Imaging Data Chest x-ray: Radiologist's Impression: [address] [address] XRay Report Signed Patient: Tracy Figueroa MR#: [id number] : 1940 Acct:[id number] Age/Sex: 84 / F Date of Service: 12/24/24 Loc: ED Accession Number: [id number] Procedure: XR chest 1V Ordering Provider: Abhishek Chaidez D.O. PROCEDURE: XR CHEST 1V INDICATIONS: Chest Pain TECHNIQUE: One view of the chest was acquired. COMPARISON: [facility], , XR CHEST 1V, 11/22/2023, 11:18. FINDINGS: Surgical changes and devices: Prosthetic heart valve and lead less pacer are seen Lungs and pleura: Left basilar atelectasis is noted. No focal infiltrate. No pleural effusions or pneumothorax. Mediastinum: Mediastinal contours appear normal. Heart size is normal. Bones and chest wall: No suspicious bony lesions. Suggestion of moderate to large hiatal hernia. IMPRESSION: Moderate to large hiatal hernia with left basilar atelectasis. No focal infiltrate, pleural effusion or pneumothorax. CT scan - head: Radiologist's Impression: [address] [address] [address] Scan Report Signed Patient: Tracy Figueroa MR#: [id number] : 1940 Acct:[id number] Age/Sex: 84 / F Date of Service: 12/24/24 Loc: ED Accession Number: [id number] Procedure: CT head/brain wo con Ordering Provider: Abhishek Chaidez D.O. PROCEDURE: CT HEAD/BRAIN WO CON INDICATIONS: syncope TECHNIQUE: Noncontrast 4.5 mm thick angled axial sections acquired from the foramen magnum to the vertex, with coronal and sagittal reformats. For radiation dose reduction, the following was used: automated exposure control, adjustment of mA and/or kV according to patient size. COMPARISON: [facility], CT, CT HEAD WITHOUT CONTRAST, 10/14/2024, 20:48. FINDINGS: Image quality: Diagnostic. CSF spaces: Basal cisterns are patent. No extra-axial fluid collections. The ventricles are symmetric in size and shape. Brain: No intracranial bleeds or mass effect. There is cerebral volume loss, with resultant ventricular and sulcal prominence. There are periventricular and deep white matter chronic small vessel ischemic changes. There is intracranial internal carotid artery atherosclerosis. Skull and face: Calvarium and visualized facial bones appear intact, without suspicious lesions. Sinuses: Visualized sinuses and mastoids are clear. IMPRESSION: No acute intracranial pathology. Dictated by: Janet Plata MD, PhD on 12/24/2024 at 11:31 Approved by: Janet Plata MD, PhD on 12/24/2024 at 11:[address] [address] [address] Scan Report Signed Patient: Tracy Figueroa MR#: [id number] : 1940 Acct:[id number] Age/Sex: 84 / F Date of Service: 12/24/24 Loc: ED Accession Number: [id number] Procedure: CT angio chest PE protocol Ordering Provider: Abhishek Chaidez D.O. PROCEDURE: CT ANGIO CHEST PE PROTOCOL INDICATIONS: syncope TECHNIQUE: After the administration of intravenous contrast, 2 mm thick sections acquired from the pulmonary apices to the posterior costophrenic angles. 3-dimensional maximum intensity projection (MIP) coronal and sagittal reformats were then acquired through the thorax. For radiation dose reduction, the following was used: automated exposure control, adjustment of mA and/or kV according to patient size. COMPARISON: [facility], CR, XR CHEST 1V, 12/24/2024, 10:19. FINDINGS: Image quality: Diagnostic. Pulmonary arteries: Pulmonary arteries are normal in size, and demonstrate no intraluminal filling defects to suggest central pulmonary embolism. Bilateral subsegmental pulmonary artery branches are suboptimally opacified. Small distal pulmonary emboli cannot be entirely excluded. Lower Neck: No enlarged lymph nodes. Thyroid: No thyroid nodules which require sonographic follow up, per consensus guidelines. Axillae: No enlarged lymph nodes. Chest Wall: Unremarkable. Bones: No aggressive appearing bony lesions. Lungs and Pleura: No pneumothorax or pleural effusions. Compressive atelectasis in posterior medial aspect of left lung base adjacent to patient's known large hiatal hernia is noted. Mild dependent atelectasis in posterior aspect of bilateral lung bases are seen. No suspicious pulmonary nodules. Mild centrilobular emphysema. Heart: Heart size is enlarged. No pericardial effusion. Prosthetic aortic valve is seen. Thoracic Vessels: No aortic aneurysm. Mediastinum and Sondra: No enlarged lymph nodes. Esophagus: No wall thickening. Large hiatal hernia. Upper Abdomen: Visualized upper abdomen solid organs and bowel loops appear normal. Likely simple cyst is seen in left hepatic lobe. IMPRESSION: 1. No central pulmonary embolus. Bilateral subsegmental pulmonary artery branches are suboptimally opacified, small distal pulmonary emboli cannot be entirely excluded. 2. Large hiatal hernia with adjacent left lower lobe compressive atelectasis. Dependent atelectasis in posterior aspect of bilateral lung garcia. Mild centrilobular emphysema. No pleural effusion or pneumothorax. 3. Cardiomegaly, no pericardial effusion. Prosthetic aortic valve in place. No mediastinal or hilar lymphadenopathy. Dictated by: Colton Ivey M.D. on 12/24/2024 at 11:58 Approved by: Colton Ivey M.D. on 12/24/2024 at 12:02 ECG Data Interpretation: NSR IRBBB HR 77 MN 162 QRS [address]-t wave change MDM Narrative Medical decision making narrative: All lab work, vital signs, nurse triage note, medication list, and all previous ER visits all reviewed. Case discussed with Dr. Dougherty facility security officer on-call 1st set of troponin was normal 2nd set went up to 0.048 and 3rd set went up to 0.051. EKG was sinus rhythm with no STT wave changes. Case discussed with Dr. Dougherty on-call who was able to review the most recent cardiology visit and believes this to be micturition syncope and to monitor the patient with serial cardiac enzymes to admit overnight and get an echo in the morning and if it did not show any new motion abnormalities then this would be demand ischemia. Differential diagnosis includes allergic reaction to amoxicillin, vasovagal syncope, type [address] OK[address] Case discussed with Dr[address] Ramirez who has graciously accepted patient for inpatient admission. Discharge Plan Departure Patient Disposition: Admitted as Observation Clinical Impression: Elevated troponin Syncope Qualifiers: Syncope type: vasovagal syncope Qualified Code(s): R55 - Syncope and collapse Prescriptions: No Action cyclosporine [Restasis] 1 EACH dropperette 0.4 ml OP Q12HP Qty: 0 nitrofurantoin macrocrystal 50 mg capsule 50 mg PO ONCE PM Qty: 90 2RF Estring 2 mg (7.5 mcg /24 hour) ring 1 vag ring vaginal [id number] Qty: 1 3RF Hold Instructions: backordered. Medi-Doze 6-30-50 mg tablet PO metoprolol succinate 25 mg tablet extended release 24 hr 25 mg PO DAILY ascorbic acid (vitamin C) 500 mg tablet 500 mg PO DAILY fluorouracil 5 % cream 1 applic topical BID aspirin 81 mg tablet,delayed release (DR/EC) 81 mg PO DAILY [employer] Rescue Sleep Natural Sleep PO Referrals: Triny Garcia DO [Primary Care Provider] - Admit Date/Time: 12/24/24 17:28 Admit Provider: Quinn Ramirez
[2024-12-24 10:33] LABS: PTT Partial Thromboplastin Tim 33 SECONDS (25.1-36.5)
[2024-12-24 10:34] LABS: Alanine Aminotransferase 28 IU/L (<35); Albumin 4.1 g/dL (3.5-5.0); Albumin Globulin Ratio 1.5 (1.0-2.8); Alkaline Phosphatase 76 U/L (38-126); Aspartate Aminotransferase 34 IU/L (14-36); BUN Creatinine Ratio 38.3 (6-22); Blood Urea Nitrogen 31 mg/dL (7-17); Calcium 9.1 mg/dL (8.4-10.2); Carbon Dioxide 18 mmol/L (22-32); Chloride 104 mmol/L (98-107); Creatine Kinase 66 U/L (30-135); Estimated Glomerular Filt Rate > 60 mL/min (>60); Globulin 2.8 g/dL (1.7-4.1); Glucose 187 mg/dL (70-99); HEMOLYSIS 15 (0-50); Lactate (Lactic Acid) 3.9 mmol/L (0.7-2.1); Lipase 174 U/L (23-300); Magnesium 2.2 mg/dL (1.6-2.3); Sodium 135 mmol/L (137-145); Total Protein 6.9 g/dL (6.3-8.2)
[2024-12-24 10:46] LABS: Add Manual Diff / Slide Review NO; Basophils Absolute Auto 0 /uL (0-100); Basophils Percent Auto 0.4 % (0-2); Eosinophils Absolute Auto 200 /uL (0-450); Eosinophils Percent Auto 2.8 % (2-4); Hematocrit 40.1 % (36-46); Hemoglobin 13.1 g/dL (12.0-16.0); Lymphocytes Absolute Auto 2900 /uL (1100-4500); Lymphocytes Percent Auto 48.6 % (25-40); Mean Corpuscular HGB Conc 32.7 % (30-36); Mean Corpuscular Hemoglobin 28.7 PG (26-34); Mean Corpuscular Volume 87.8 fL (80-100); Monocytes Absolute Auto 400 /uL (0-900); Neutrophils Absolute Auto 2400 /uL (1500-7000); Neutrophils Percent Auto 41.2 % (50-75); Platelet Count 319 X10^3/uL (150-400); Red Blood Cell Count 4.56 X10^6/uL (4.0-5.2); Red Cell Distribution Width 14.9 % (11.6-14.8); White Blood Cell Count 5.9 X10^3/uL (4.5-11.0)
[2024-12-24 10:47] LABS: NT-proBNP (BNP-Adult 18+) 411 pg/mL (<450); Troponin I < 0.012 ng/mL (0.01-0.034)
--- NOTE | 2024-12-24 10:49 | PC.NURSE ---
Pt arrived to ED via EMS after syncopal episode that left pt unresponsive. Pt went to use bathroom prior to leaving for dentist appt and had syncopal episode while on toilet. Pt takes amoxicillin prior to dental work due to heart valve replacement. reports that similar episode happened last time she took amoxicillin and believes that it was an allergic reaction. Pt states that she began to feel very itchy and dizzy and then passed out. Pt hypotensive. EMS reports that pt unrepsonsive upon arrival to scene and 6mcg of push-dose epi given by EMS and epi drip started by EMS at 4mcg/min. Pt arrived diaphoretic and confused but rousable to sound and touch. A&Ox3 at the time of triage. Pt 98% on RA. Hx of valve replacement & pacemaker. Dr Chaidez gave verbal order to stop epi drip and begin 1000mL IV bolus.
--- NOTE | 2024-12-24 10:50 | DI.CT.S_ITS ---
PROCEDURE: CT ANGIO CHEST PE PROTOCOL INDICATIONS: syncope TECHNIQUE: After the administration of intravenous contrast, 2 mm thick sections acquired from the pulmonary apices to the posterior costophrenic angles. 3-dimensional maximum intensity projection (MIP) coronal and sagittal reformats were then acquired through the thorax. For radiation dose reduction, the following was used: automated exposure control, adjustment of mA and/or kV according to patient size. COMPARISON: [facility], CR, XR CHEST 1V, 12/24/2024, 10:19. FINDINGS: Image quality: Diagnostic. Pulmonary arteries: Pulmonary arteries are normal in size, and demonstrate no intraluminal filling defects to suggest central pulmonary embolism. Bilateral subsegmental pulmonary artery branches are suboptimally opacified. Small distal pulmonary emboli cannot be entirely excluded. Lower Neck: No enlarged lymph nodes. Thyroid: No thyroid nodules which require sonographic follow up, per consensus guidelines. Axillae: No enlarged lymph nodes. Chest Wall: Unremarkable. Bones: No aggressive appearing bony lesions. Lungs and Pleura: No pneumothorax or pleural effusions. Compressive atelectasis in posterior medial aspect of left lung base adjacent to patient's known large hiatal hernia is noted. Mild dependent atelectasis in posterior aspect of bilateral lung bases are seen. No suspicious pulmonary nodules. Mild centrilobular emphysema. Heart: Heart size is enlarged. No pericardial effusion. Prosthetic aortic valve is seen. Thoracic Vessels: No aortic aneurysm. Mediastinum and Sondra: No enlarged lymph nodes. Esophagus: No wall thickening. Large hiatal hernia. Upper Abdomen: Visualized upper abdomen solid organs and bowel loops appear normal. Likely simple cyst is seen in left hepatic lobe. IMPRESSION: 1. No central pulmonary embolus. Bilateral subsegmental pulmonary artery branches are suboptimally opacified, small distal pulmonary emboli cannot be entirely excluded. 2. Large hiatal hernia with adjacent left lower lobe compressive atelectasis. Dependent atelectasis in posterior aspect of bilateral lung garcia. Mild centrilobular emphysema. No pleural effusion or pneumothorax. 3. Cardiomegaly, no pericardial effusion. Prosthetic aortic valve in place. No mediastinal or hilar lymphadenopathy. Dictated by: Colton Ivey M.D. on 12/24/2024 at 11:58 Approved by: Colton Ivey M.D. on 12/24/2024 at 12:02
--- NOTE | 2024-12-24 10:50 | DI.CT.S_ITS ---
PROCEDURE: CT HEAD/BRAIN WO CON INDICATIONS: syncope TECHNIQUE: Noncontrast 4.5 mm thick angled axial sections acquired from the foramen magnum to the vertex, with coronal and sagittal reformats. For radiation dose reduction, the following was used: automated exposure control, adjustment of mA and/or kV according to patient size. COMPARISON: [facility], CT, CT HEAD WITHOUT CONTRAST, 10/14/2024, 20:48. FINDINGS: Image quality: Diagnostic. CSF spaces: Basal cisterns are patent. No extra-axial fluid collections. The ventricles are symmetric in size and shape. Brain: No intracranial bleeds or mass effect. There is cerebral volume loss, with resultant ventricular and sulcal prominence. There are periventricular and deep white matter chronic small vessel ischemic changes. There is intracranial internal carotid artery atherosclerosis. Skull and face: Calvarium and visualized facial bones appear intact, without suspicious lesions. Sinuses: Visualized sinuses and mastoids are clear. IMPRESSION: No acute intracranial pathology. Dictated by: Janet Plata MD, PhD on 12/24/2024 at 11:31 Approved by: Janet Plata MD, PhD on 12/24/2024 at 11:34
--- NOTE | 2024-12-24 11:49 | PC.NURSE ---
Pt a&ox4. Skin pink, warm & dry. GCS 15. BP trending upward 99/52 w/MAP [address] Chaidez notified of pt status.
[2024-12-24 12:00] LABS: Reflexed Lactate in 2 Hours Y
[2024-12-24 12:45] LABS: Lactate 2HR (Lactic Acid Rflx) 2.6 mmol/L (0.7-2.1)
--- NOTE | 2024-12-24 13:04 | PC.NURSE ---
Pt judy and a&Ox4. States that she still feels slightly off. VS WNL.
[2024-12-24 14:07] LABS: Troponin I 0.048 ng/mL (0.01-0.034)
--- NOTE | 2024-12-24 14:10 | EKG_ITS ---
[address] [address] [place] [address] Test Date: 2024-12-24 Pat Name: Tracy Figueroa Department: [facility] Room: Gender: Female Physical Therapy Assistant: BJ : 1940 Requested By: Order Number: [id number] Reading MD: Quinn Ramirez Measurements Intervals Backus Rate: 74 P: 45 SC: 188 QRS: -3 QRSD: 90 T: -14 QT: 398 QTc: 441 Interpretive Statements Normal sinus rhythm Nonspecific ST abnormality Electronically Signed On 12-24-2024 16:23:28 PDT by Quinn Ramirez
[2024-12-24 16:14] LABS: Troponin I 0.051 ng/mL (0.01-0.034)
--- NOTE | 2024-12-24 16:43 | PC.NURSE ---
Bilateral LE wounds dressed with xeroform gauze and kerlix. Pt tolerated well.
--- NOTE | 2024-12-24 16:44 | PC.NURSE ---
Pt up to bedside commode with stand by assistance. Unable to produce urine. Pad changed. A&Ox4 and denies dizziness.
--- NOTE | 2024-12-24 18:37 | P.HP_ITS ---
History of Present Illness History of Present Illness Date Patient Seen: 12/24/24 Time Patient Seen: 18:37 Chief complaint: Syncope/Unresponsive Narrative: The patient is an 84-year-old female who has been to her for 64 years. 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 All of these procedures happened in [place]. She was followed by Dr. Pratt. Her PCP is Aicha flores. She presents today with a syncopal episode. Her believes that this related to an allergic reaction to amoxicillin which she took to prepare for a dental procedure. He states she had a similar episode on a dental procedure day and therefore correlates this to the amoxicillin. She did not have an obvious rash or angioedema. She did have a syncopal episode today while on the toilet, urinating. He does not believe that this is vasovagal are associated with going to the bathroom in the past. She also does have a degree of cognitive impairment. She was accompanied by her son as well. The patient was apparently unresponsive for possibly 15 minutes but did have a pulse. Ultimately 911 was called and she was brought to the ER where she was relatively stable but had very mild elevation of her troponins. The case was discussed with Dr. Dougherty of [facility] who recommended serial enzymes and an ultrasound tomorrow to rule out wall motion abnormalities. He felt this may be demand ischemia related to micturition syncope. The patient was feel strongly that this relates to amoxicillin. I reassured the him that there maybe some lack of clarity in exactly what happened ultimately but that we would want to be sure that there was no evidence of cardiac arrhythmia or ischemia at this time and that he would likely avoid amoxicillin in the future regardless. 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 Shoulder pain Osteopenia (~1999) History of wrist fracture (~1949) Arthritis of foot (~1999) Cervical spine disease (~2013) Dry skin Chickenpox Measles Mumps Hearing loss Cataracts, bilateral Urinary incontinence, urge (~1999) Hemorrhoids (~1959) Murmur (~2010) Hyperlipidemia (08/29/13) Urinary incontinence (06/02/11) Surgical History S/P placement of cardiac pacemaker S/P TAVR (transcatheter aortic valve replacement) (~2022) Anesthesia complication Surgical procedure planned (~1964) History of bladder suspension procedure (~2001) Pilonidal cyst (~1999) History of vein stripping (~1965) History of knee replacement (~2011) History of knee replacement (~2010) Status post hysterectomy with oophorectomy (~1979) History of cataract removal with insertion of prosthetic lens Status post appendectomy (~1949) History of tonsillectomy (~1949) Family History Father No problems noted. Mother No problems noted. Grandfather No problems noted. Social History marital status: number of children: 4 Smoking Status: Never smoker alcohol intake: never substance use type: does not use caffeine: Yes Meds Home Medications and Allergies Home Medications Medication Instructions Recorded Confirmed Type cyclosporine 0.05 % eye drops in a 0.4 ml OP Q12HP ##0 05/17/11 10/27/24 History dropperette (Restasis) metoprolol succinate 25 mg 25 mg PO DAILY 01/28/18 10/27/24 History tablet,extended release 24 hr ascorbic acid (vitamin C) 500 mg 500 mg PO DAILY 12/26/21 10/27/24 History tablet [id number] 6 mg-30 tab PO 12/14/23 10/27/24 History mg-50 mg tablet (Medi-Doze) aspirin 81 mg tablet,delayed 81 mg PO DAILY 03/28/24 10/27/24 History release fluorouracil 5 % topical cream 1 applic topical BID 03/28/24 10/27/24 History nitrofurantoin macrocrystal 50 mg 50 mg PO ONCE PM #90 caps 05/26/24 10/27/24 Rx capsule estradiol 2 mg (7.5 mcg/24 hour) 1 vag ring vaginal [id number] #1 ea 08/26/24 10/27/24 Rx vaginal ring (Estring) Bach Flower Remedies Rescue Sleep PO 08/28/24 10/27/24 History Natural Sleep Allergies Allergy/AdvReac Type Severity Reaction Status Date / Time Sulfa (Sulfonamide Allergy Mild ITCHY, Verified 12/24/24 10:17 Antibiotics) IRRITABLE, [SULFA (SULFONAMIDE MOOD CHANGE ANTIBIOTICS)] Review of Systems Review of Systems Narrative: All else reviewed and otherwise unremarkable except as noted in the history and physical. Exam Vital Signs (past 8 hours): - 12/24/24 10:40 12/24/24 10:40 12/24/24 10:45 Pulse Rate 73 75 Respiratory Rate 21 22 Blood Pressure 81/51 L Pulse Oximetry 99 98 Oxygen Delivery Method Nasal Cannula Oxygen Flow Rate 2 12/24/24 10:45 12/24/24 10:50 12/24/24 10:50 Pulse Rate 74 Respiratory Rate 20 Blood Pressure 80/52 L 79/42 L Pulse Oximetry 95 Oxygen Delivery Method Nasal Cannula Oxygen Flow Rate 2 12/24/24 10:55 12/24/24 10:55 12/24/24 11:00 Pulse Rate 72 73 Respiratory Rate 19 20 Blood Pressure 89/54 L Pulse Oximetry 91 98 Oxygen Delivery Method Nasal Cannula Oxygen Flow Rate 2 12/24/24 11:00 12/24/24 11:05 12/24/24 11:05 Pulse Rate 72 Respiratory Rate 17 Blood Pressure 88/51 L 91/53 L Pulse Oximetry 97 Oxygen Delivery Method Oxygen Flow Rate 12/24/24 11:30 12/24/24 11:37 12/24/24 11:37 Pulse Rate 77 79 Respiratory Rate 18 20 Blood Pressure 100/55 L Pulse Oximetry 97 97 Oxygen Delivery Method Nasal Cannula Oxygen Flow Rate 2 12/24/24 11:40 12/24/24 11:42 12/24/24 11:42 Pulse Rate 79 76 Respiratory Rate 28 H 22 Blood Pressure 101/54 L Pulse Oximetry 96 96 Oxygen Delivery Method Oxygen Flow Rate 12/24/24 11:45 12/24/24 11:45 12/24/24 11:50 Pulse Rate 76 78 Respiratory Rate 20 22 Blood Pressure 99/52 L Pulse Oximetry 96 90 L Oxygen Delivery Method Oxygen Flow Rate 12/24/24 11:50 12/24/24 11:55 12/24/24 11:55 Pulse Rate 75 Respiratory Rate 17 Blood Pressure 92/54 L 101/56 L Pulse Oximetry 92 Oxygen Delivery Method Oxygen Flow Rate 12/24/24 12:00 12/24/24 12:00 12/24/24 12:05 Pulse Rate 74 73 Respiratory Rate 16 16 Blood Pressure 105/59 L Pulse Oximetry 94 94 Oxygen Delivery Method Oxygen Flow Rate 12/24/24 12:05 12/24/24 12:10 12/24/24 12:10 Pulse Rate 71 Respiratory Rate 14 Blood Pressure 116/56 L 111/56 L Pulse Oximetry 95 Oxygen Delivery Method Oxygen Flow Rate 12/24/24 12:15 12/24/24 12:15 12/24/24 12:20 Pulse Rate 70 72 Respiratory Rate 17 19 Blood Pressure 109/55 L Pulse Oximetry 97 Oxygen Delivery Method Oxygen Flow Rate 12/24/24 12:20 12/24/24 12:25 12/24/24 12:25 Pulse Rate 72 Respiratory Rate 17 Blood Pressure 108/68 114/71 Pulse Oximetry Oxygen Delivery Method Oxygen Flow Rate 12/24/24 12:30 12/24/24 12:30 12/24/24 12:36 Pulse Rate 64 67 Respiratory Rate 15 15 Blood Pressure 108/57 L Pulse Oximetry 94 Oxygen Delivery Method Oxygen Flow Rate 12/24/24 12:36 12/24/24 12:40 12/24/24 12:40 Pulse Rate 63 Respiratory Rate 19 Blood Pressure 119/59 L 105/55 L Pulse Oximetry 93 Oxygen Delivery Method Oxygen Flow Rate 12/24/24 12:45 12/24/24 12:45 12/24/24 12:51 Pulse Rate 64 64 Respiratory Rate 19 16 Blood Pressure 130/60 Pulse Oximetry 100 100 Oxygen Delivery Method Oxygen Flow Rate 12/24/24 12:51 12/24/24 12:55 12/24/24 12:55 Pulse Rate 63 Respiratory Rate 15 Blood Pressure 112/60 113/58 L Pulse Oximetry 99 Oxygen Delivery Method Oxygen Flow Rate 12/24/24 12:59 12/24/24 12:59 12/24/24 13:00 Pulse Rate 76 67 Respiratory Rate 20 19 Blood Pressure 110/59 L Pulse Oximetry 99 99 Oxygen Delivery Method Oxygen Flow Rate 12/24/24 13:00 12/24/24 14:40 12/24/24 14:45 Pulse Rate 78 Respiratory Rate 23 Blood Pressure 131/58 L 95/53 L Pulse Oximetry 97 Oxygen Delivery Method Oxygen Flow Rate 12/24/24 14:45 12/24/24 14:50 12/24/24 14:50 Pulse Rate 83 Respiratory Rate 20 Blood Pressure 115/59 L 115/62 Pulse Oximetry 97 Oxygen Delivery Method Oxygen Flow Rate 12/24/24 14:55 12/24/24 14:55 12/24/24 15:00 Pulse Rate 80 82 Respiratory Rate 20 20 Blood Pressure 111/59 L Pulse Oximetry 97 97 Oxygen Delivery Method Oxygen Flow Rate 12/24/24 15:00 12/24/24 15:05 12/24/24 15:05 Pulse Rate 81 Respiratory Rate 22 Blood Pressure 96/52 L 101/55 L Pulse Oximetry 95 Oxygen Delivery Method Oxygen Flow Rate 12/24/24 15:11 12/24/24 15:11 12/24/24 15:15 Pulse Rate 78 Respiratory Rate 18 Blood Pressure 102/56 L 107/52 L Pulse Oximetry 96 Oxygen Delivery Method Oxygen Flow Rate 12/24/24 15:15 12/24/24 15:20 12/24/24 15:20 Pulse Rate 79 77 Respiratory Rate 17 15 Blood Pressure 92/49 L Pulse Oximetry 94 94 Oxygen Delivery Method Oxygen Flow Rate 12/24/24 15:26 12/24/24 15:26 12/24/24 15:30 Pulse Rate 83 81 Respiratory Rate 21 21 Blood Pressure 112/53 L Pulse Oximetry Oxygen Delivery Method Oxygen Flow Rate 12/24/24 15:30 12/24/24 15:35 12/24/24 15:35 Pulse Rate 77 Respiratory Rate 19 Blood Pressure 99/54 L 103/55 L Pulse Oximetry 96 Oxygen Delivery Method Oxygen Flow Rate 12/24/24 15:40 12/24/24 15:40 12/24/24 15:45 Pulse Rate 78 Respiratory Rate 21 Blood Pressure 99/51 L 99/55 L Pulse Oximetry 97 Oxygen Delivery Method Oxygen Flow Rate 12/24/24 15:45 12/24/24 15:50 12/24/24 15:50 Pulse Rate 76 77 Respiratory Rate 21 24 Blood Pressure 92/51 L Pulse Oximetry 96 96 Oxygen Delivery Method Oxygen Flow Rate 12/24/24 15:55 12/24/24 15:55 12/24/24 16:00 Pulse Rate 75 75 Respiratory Rate 25 H 23 Blood Pressure 94/52 L Pulse Oximetry 95 96 Oxygen Delivery Method Oxygen Flow Rate 12/24/24 16:00 12/24/24 16:05 12/24/24 16:05 Pulse Rate 72 Respiratory Rate 21 Blood Pressure 102/51 L 100/51 L Pulse Oximetry 95 Oxygen Delivery Method Oxygen Flow Rate 12/24/24 16:10 12/24/24 16:10 12/24/24 16:25 Pulse Rate 74 Respiratory Rate 21 Blood Pressure 103/55 L 104/63 Pulse Oximetry 95 Oxygen Delivery Method Oxygen Flow Rate 12/24/24 16:25 12/24/24 16:30 12/24/24 16:31 Pulse Rate 73 67 66 Respiratory Rate 22 25 H 21 Blood Pressure Pulse Oximetry 98 97 97 Oxygen Delivery Method Oxygen Flow Rate 12/24/24 16:31 12/24/24 16:36 12/24/24 16:36 Pulse Rate 65 Respiratory Rate 22 Blood Pressure 130/58 L 121/65 Pulse Oximetry 99 Oxygen Delivery Method Oxygen Flow Rate 12/24/24 16:40 12/24/24 16:40 12/24/24 16:45 Pulse Rate 66 69 Respiratory Rate 20 24 Blood Pressure 114/62 Pulse Oximetry 99 99 Oxygen Delivery Method Oxygen Flow Rate 12/24/24 16:45 12/24/24 16:51 12/24/24 16:51 Pulse Rate 75 Respiratory Rate 23 Blood Pressure 114/59 L 115/59 L Pulse Oximetry 99 Oxygen Delivery Method Oxygen Flow Rate 12/24/24 16:56 12/24/24 16:56 12/24/24 17:00 Pulse Rate 74 73 Respiratory Rate 21 22 Blood Pressure 84/65 L Pulse Oximetry 100 98 Oxygen Delivery Method Oxygen Flow Rate 12/24/24 17:05 12/24/24 17:05 12/24/24 17:10 Pulse Rate 74 Respiratory Rate 23 Blood Pressure 94/50 L 96/51 L Pulse Oximetry 97 Oxygen Delivery Method Oxygen Flow Rate 12/24/24 17:10 12/24/24 17:16 12/24/24 17:16 Pulse Rate 77 75 Respiratory Rate 21 22 Blood Pressure 112/53 L Pulse Oximetry 97 96 Oxygen Delivery Method Oxygen Flow Rate 12/24/24 17:20 12/24/24 17:20 12/24/24 17:25 Pulse Rate 76 Respiratory Rate 22 Blood Pressure 106/51 L 95/50 L Pulse Oximetry 96 Oxygen Delivery Method Oxygen Flow Rate 12/24/24 17:25 12/24/24 17:30 12/24/24 17:31 Pulse Rate 75 74 Respiratory Rate 23 23 Blood Pressure 87/53 L Pulse Oximetry 96 95 Oxygen Delivery Method Oxygen Flow Rate 12/24/24 17:31 12/24/24 17:33 12/24/24 17:33 Pulse Rate 74 73 Respiratory Rate 23 23 Blood Pressure 86/53 L Pulse Oximetry 96 96 Oxygen Delivery Method Oxygen Flow Rate 12/24/24 17:35 12/24/24 17:35 12/24/24 17:40 Pulse Rate 81 75 Respiratory Rate 22 26 H Blood Pressure 85/50 L Pulse Oximetry 96 96 Oxygen Delivery Method Oxygen Flow Rate 12/24/24 17:40 12/24/24 17:45 12/24/24 17:45 Pulse Rate 73 Respiratory Rate 26 H Blood Pressure 85/48 L 93/51 L Pulse Oximetry 96 Oxygen Delivery Method Oxygen Flow Rate Oxygen Delivery Method Nasal Cannula Oxygen Flow Rate 2 Narrative Exam Narrative: NAD, alert and oriented, fluent speech, calm. Knows the year but not the month. Normocephalic skull, EOMI, anicteric sclera, symmetric pupils. Oropharynx unremarkable, no droop. Neck supple, midline trachea, no adenopathy. Lungs clear, normal rate and effort. Heart regular, no murmur gallop or rub. Abdomen is soft, non distended and non tender. Extremities are free of edema. Skin is free of rash or lesions. Joints are not swollen or deformed. Judgment appears to be normal. Objective ECG Impression: Intervals [place] Rate: 74 P: 45 AK: 188 QRS: -3 QRSD: 90 T: -14 QT: 398 QTc: 441 Interpretive Statements Normal sinus rhythm Nonspecific ST abnormality Imaging Multiple studies:: Radiologist's impression: Head CT: No acute intracranial pathology. Chest CTA: 1. No central pulmonary embolus. Bilateral subsegmental pulmonary artery branches are suboptimally opacified, small distal pulmonary emboli cannot be entirely excluded. 2. Large hiatal hernia with adjacent left lower lobe compressive atelectasis. Dependent atelectasis in posterior aspect of bilateral lung garcia. Mild centrilobular emphysema. No pleural effusion or pneumothorax. 3. Cardiomegaly, no pericardial effusion. Prosthetic aortic valve in place. No mediastinal or hilar lymphadenopathy. Chest x-ray: Moderate to large hiatal hernia with left basilar atelectasis. No focal infiltrate, pleural effusion or pneumothorax. Labs 12/24/24 10:00 12/24/24 10:00 Labs: Laboratory Results - last 24 hr 12/24/24 12/24/24 12/24/24 10:00 12:30 13:37 WBC 5.9 RBC 4.56 Hgb 13.1 Hct 40.1 MCV 87.8 MCH 28.7 MCHC 32.7 RDW 14.9 H Plt Count 319 Neut % (Auto) 41.2 L Lymph % (Auto) 48.6 H [place] % (Auto) 7.0 Eos % (Auto) 2.8 Baso % (Auto) 0.4 Neut # (Auto) 2400 Lymph # (Auto) 2900 [place] # (Auto) 400 Eos # (Auto) 200 Baso # (Auto) 0 PT 12.2 INR 1.1 APTT 33 Sodium 135 L Potassium 4.0 Chloride 104 Carbon Dioxide 18 L BUN 31 H Creatinine 0.81 Estimated GFR > 60 BUN/Creatinine Ratio 38.3 H Glucose 187 H Lactate 3.9 H 2.6 H Calcium 9.1 Magnesium 2.2 Total Bilirubin 1.0 AST 34 ALT 28 Alkaline Phosphatase 76 Total Creatine Kinase 66 Troponin I < 0.012 0.048 H NT-Pro-B Natriuret Pep 411 Total Protein 6.9 Albumin 4.1 Globulin 2.8 Albumin/Globulin Ratio 1.5 Lipase 174 12/24/24 15:42 WBC RBC Hgb Hct MCV MCH MCHC RDW Plt Count Neut % (Auto) Lymph % (Auto) [place] % (Auto) Eos % (Auto) Baso % (Auto) Neut # (Auto) Lymph # (Auto) [place] # (Auto) Eos # (Auto) Baso # (Auto) PT INR APTT Sodium Potassium Chloride Carbon Dioxide BUN Creatinine Estimated GFR BUN/Creatinine Ratio Glucose Lactate Calcium Magnesium Total Bilirubin AST ALT Alkaline Phosphatase Total Creatine Kinase Troponin I 0.051 H NT-Pro-B Natriuret Pep Total Protein Albumin Globulin Albumin/Globulin Ratio Lipase Assessment & Plan Assessment & Plan narrative: 1. Syncopal episode, present on admission and active. 2. Family concern for possible reaction to amoxicillin, present on admission and active. 3. Possible demand ischemia, present on admission and active. 4. Lactic acidosis, present on admission and active. 5. Cognitive impairment, present on admission and stable. 6. Aortic valve replacement, present on admission and stable. 7. Pacemaker, present on admission and presumably stable. Plan: -avoid further amoxicillin -serial troponins -cardiac echo in the morning -IV fluids and recheck lactic acid -cardiac telemetry Anticipate 1 midnight in the hospital, supports observation status. We had a lengthy conversation regarding resuscitation wishes and the POLST. They have not heard this, and we are given copies of it. She was full resuscitation, her is her proxy decision maker. Time-Based Coding :: 35 min spent with patient and on the chart (including review of chart, obtaining history, exam, reviewing outside data, placing orders, documenting exam and treatment plan, and counseling patient) on 12/24. Quality MIPS - Admit I confirm the patient?s Advance Care Plan is present, Code status is documented, Surrogate decision maker is in patient?s record [If Yes, STOP here]: Yes MIPS - Meds 'Current medications' to include all prescriptions, [id number] products, herbals, cannabis/cannabidiol products, and vitamin/mineral/dietary (nutritional) supplements. I have utilized all available resources to obtain, update, or review the patient?s current medications. [If Yes, STOP here]: Yes
--- NOTE | 2024-12-24 18:48 | PC.WOUNDPHOT ---
Wound Photos 1) Right raza skin tear 2) Left lateral leg skin tear
--- NOTE | 2024-12-24 18:49 | DI.ECHO.S_ITS ---
[facility] : : [id number] : [place] : : [id number] : : Phone: [phone] Echocardiogram Report + + :Name: AVRIL BRANCH Study Date: 12/25/2024 Height: 64 in : :[facility] ReadingLocation: Weight: 157 lb : : Gender: Female BSA: 1.8 m2 : :: 1940 Age: 84 yrs BP: 126/56 mmHg: :Reason For Study: SYNCOPE : :Ordering Physician: ROBERT, : :AURA Fay Performed By: Krystin Bonds : :Referring: AURA JONES : + + Interpretation Summary 1) Normal left ventricular thickness, size, wall motion, and systolic function (EF 60-65%). 2) Normal right ventricular size and function. There is Micra pacemaker device seated in the right ventricular apex. 3) The left atrium is severely dilated. The right atrium is moderately dilated. 4) There is a bioprosthetic aortic valve that is well seated and opens well (mean gradient 7mmHg). No aortic regurgitation is present. 5) Short tachycardia episode up to 103bpm that could be atrial tachycardia. See image #44. 6) Compared to the Echo done 10/15/2024, no significant change. Procedure: A two-dimensional transthoracic echocardiogram with color flow and Doppler was performed. The study quality was technically adequate. Comparison is made with the echocardiogram of 10/15/2024. The patient was in sinus rhythm with heart rates between 55-79 bpm during the exam. Left Ventricle: The left ventricle is normal in size and wall thickness. The ejection fraction is estimated to be 60-65%. Left ventricular systolic function appears normal without focal wall motion abnormalities. Diastolic function could not be accurately assessed due to confounding valvular disease. Right Ventricle: The right ventricle is normal size. The right ventricular systolic function is normal. There is Micra pacemaker device seated in the right ventricular apex. Atria: The left atrium is severely dilated. The right atrium is moderately dilated. There is no Doppler evidence for an interatrial shunt. Mitral Valve: The mitral valve leaflets are moderately calcified. There is moderate mitral annular calcification. There is mild mitral stenosis. The mitral valve mean gradient is 5.8 mmHg. There is mild mitral regurgitation. There are multiple regurgitant jets present. Aortic Valve: Aortic valve is replaced by history of via 26 mm Chow RAZA 3 ultra Reselia valve. There is a bioprosthetic aortic valve. The prosthetic aortic valve is well-seated. The prosthetic aortic valve appears to open well. The peak aortic velocity is 1.86 m/sec. The aortic valve mean gradient is 7.4 mmHg. The calculated aortic valve area is 1.7 cm2. No aortic regurgitation is present. Tricuspid Valve: The tricuspid valve leaflets are thin and pliable. There is mild tricuspid regurgitation. The right ventricular systolic pressure is estimated to be at least 40 mmHg based on an estimated right atrial pressure of 8 mm Hg. Pulmonic Valve: The pulmonic valve leaflets are thin and pliable; valve motion is normal. There is mild pulmonic regurgitation. Great Vessels: The aortic root is normal size. The dimensions of the ascending aorta are normal. The IVC is dilated (diameter is greater than 2.1 cm) yet it collapses greater than 50% with a sniff. This suggests a right atrial pressure of 8 mm Hg. Pericardium/ Pleura There is no pericardial effusion. There is no pleural effusion. MMode/2D Measurements & Calculations LVIDd: 4.4 cm LVOT diam: 2.0 cm LVIDs: 2.6 cm asc Aorta Diam: 3.2 cm FS: 40.9 % Ao Arch Diam (Prox Trans): 3.5 cm IVSd: 0.86 cm LVPWd: 0.71 cm LV rao. diameter/BSA (cm/m^2): 2.5 LV sys. diameter/BSA (cm/m^2): 1.5 LA A2 area: 25.6 cm2 RA long axis: 5.7 cm LA A4 area: 33.8 cm2 RA area: 23.0 cm2 LA length (vol): 7.4 cm RA vol: 78.2 ml LA vol: 99.9 ml RA : 44.3 ml/m2 LA vol index: 56.6 ml/m2 IVC diam: 2.1 cm RVD1 (basal): 3.8 cm RVD2 (mid): 2.9 cm TAPSE: 1.7 cm Doppler Measurements & Calculations Ao V2 max: 186.8 cm/sec LVOT Max Jono: 104.2 cm/sec Ao V2 mean: 123.0 cm/sec LV V1 max P.3 mmHg Ao max P.0 mmHg LV V1 VTI: 18.7 cm Ao mean P.4 mmHg GARFIELD(I,D): 1.5 cm2 Ao V2 VTI: 37.9 cm GARFIELD(V,D): 1.7 cm2 sev ratio: 0.49 GARFIELD indexed to BSA (cm^2/m^2): 0.86 MV E max jono: 141.6 cm/sec TR max jono: 281.4 cm/sec MV A max jono: 130.4 cm/sec TR max P.7 mmHg MV E/A: 1.1 PA V2 max: 78.3 cm/sec Med Peak E' Jono: 7.9 cm/sec PA V2 mean: 56.3 cm/sec E/E' med: 18.0 PA mean P.4 mmHg Lat Peak E' Jono: 8.0 cm/sec PA pr(Accel): 34.5 mmHg E/E' lat: 17.7 E/e' average: 17.9 MV dec time: 0.26 sec MVA(VTI): 1.3 cm2 MV V2 mean: 110.8 cm/sec SV(LVOT): 57.7 ml MV mean P.8 mmHg MV V2 VTI: 44.6 cm MV P1/2t-pr_phl: 103.7 msec Reading Physician:04:[id number] PM
[2024-12-24] MEDS: SODIUM CHLORIDE 0.45% 1,000 ML 100 ML IV (19:05)
[2024-12-24 22:09] LABS: Lactate (Lactic Acid) 0.9 mmol/L (0.7-2.1)
[2024-12-24 22:29] LABS: Troponin I 0.123 ng/mL (0.01-0.034)
[2024-12-25] VITALS (7 sets, daily range): BP systolic 103–143; BP diastolic 56–95; PULSE 65–85; RESP 16–20; TEMP 36.4–36.6; O2SAT 96–100
[2024-12-25] MEDS: ENOXAPARIN 100 MG/ML SYRINGE 70 MG SUBCUT ×2 (02:50→14:49)
[2024-12-25 05:08] LABS: BUN Creatinine Ratio 38.5 (6-22); Blood Urea Nitrogen 20 mg/dL (7-17); Calcium 8.4 mg/dL (8.4-10.2); Carbon Dioxide 20 mmol/L (22-32); Chloride 109 mmol/L (98-107); Estimated Glomerular Filt Rate > 60 mL/min (>60); Glucose 100 mg/dL (70-99); HEMOLYSIS < 15 (0-50); Sodium 134 mmol/L (137-145)
[2024-12-25] MEDS: SODIUM CHLORIDE 0.45% 1,000 ML 100 ML IV (05:12)
--- NOTE | 2024-12-25 05:23 | PM.EVENT ---
Event Note Event Note (Rapid Response, Code, or fall): Was notified that patient trop increase from 0.05 to 0.12. Patient has no chest pain but came in for syncope. Will start therapeutic lovenox now empericially while conitnue to trend trops and obtain EKG and echo.
[2024-12-25 05:28] LABS: Troponin I 0.198 ng/mL (0.01-0.034)
[2024-12-25] MEDS: ACETAMINOPHEN 325 MG TABLET 650 MG PO (07:41)
[2024-12-25] MEDS: ASPIRIN EC 81 MG TABLET PO (09:12)
[2024-12-25 10:34] LABS: Troponin I 0.138 ng/mL (0.01-0.034)
--- NOTE | 2024-12-25 15:45 | CM.DANOTE ---
Addendum entered by JODY Juárez 12/25/24 15:54: ADD: Spouse also confirms that pt has very mild cog impairment that only happens on rare occasions when she might give slightly wrong answers or is forgetful but states pt typically is very A&O x3 at baseline. BF Original Note: Patient is an 84 yo female who was admitted INPT Status on 12/24/24 for Syncopal Episode. Pt has M[employer] and [employer] for insurance and her PCP is Dr. Triny Garcia. EMR was reviewed. Per MD, pt with hx of pacemaker, mild cog impairment and plan of Echo to r/o any ischemic changes vs medication reaction as spouse states pt had similar with antibiotic in the recent past. PT ordered and pending. SW met bedside with pt and spouse and explained role and they confirm they live at home in [place] and are mostly independent with ADLs. Pt typically furniture surfs at home but does have cane and FWW and w/c if needed for longer distances. Pt also bathes independently with use of a bath bench. They confirm that they have been 64 yrs and spouse is 92 yo retired Psychiatrist and they have 5 adult children but the closes is their son Robin who lives in [place] with his and family and is available for assist if needed. They have completed POA pwk along with advanced directives but they need to get a copy from home. 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 They do not have any formal CG or supportive services in place but pt is already established with outpt PT once a week and Cardio Pulmonary Rehab. They deny any hx of HH or SNF but have begun briefly considering LTC options as they both are aging but have a fixed income but do have some funds to hire hospital housekeeper and maybe a CG for a few hours if needed. Spouse and pt preference is to d/c home if pt close to baseline with ambulation and no bp/syncope issues continue. Per RN, pt was SBA to bedside commode today. Plan: SW to follow closely for PT eval to confirm safe plan of home with spouse and local family support when stable and r/o HH vs resumption of outpt PT and Cardio Pulm rehab. SW to notify TCM group at d/c for outpt f/u as pt's PCP is Dr. Garcia. JODY Juárez Discharge Planning/Care Management CM Discharge Assessment Start: 12/24/24 17:52 Freq: Status: Active Protocol: Document 12/25/24 15:41 BF (Rec: 12/25/24 15:43 BF [id number]) Discharge Planning Assessment Assigned Electroplater Automatic JODY Zuleta DPOA/Assigned Designee Name Spouse Martínez and son Robin Advance Directives? Yes Advance Directives on File No History Provided By Patient,Significant Other, Medical Record Has Patient been admitted in last 30 No days? Prior Living Arrangements House Household Members spouse Type of transporation used prior to Relies on Others admit Comment spouse drives currently Independent with ADL's Yes: mostly, spouse assists some Is patient alert and oriented? Yes: very mild occasional cog impairment Needs Assistance With Managing Medications,Home Chores / Shopping Caregiver for Another No Community Services used prior to Physical Therapy admission: DME Already Rented / Owned Bath Bench,Wheelchair,FWW / Walker,Cane Patient/Family Preference Home with Home Health,OP PT Therapy Comment Pending PT/OT eval ongoing outpt PT vs HH Barriers to Discharge No Discharge Plan Home Community Services Physical Therapy Transportation Arrangement Spouse bedside and can transport at d/c Additional Comment Pending pt's mobility and likely PT eval Whiteboard Updated in Patient Room with Yes name and ext. # of Electroplater Automatic Review Status In Process Please Provide Date Initial DC 12/25/24 Assessment Was Performed Next Review Type Continued Stay Review
[2024-12-25 16:56] LABS: Troponin I 0.114 ng/mL (0.01-0.034)
--- NOTE | 2024-12-25 18:30 | P.PN_ITS ---
Subjective Subjective Interval history: 84 F admitted after a syncopal episode, rising troponin overnight, started on lovenox for possible NSTEMI yesterday given uncertain etiology. Patient feels much improved today. Troponin has since downtrended. This is her second episode after taking amoxicillin per spouse. Exam Vital Signs (past 8 hours): - 12/25/24 11:00 12/25/24 12:00 12/25/24 17:00 Temperature 97.6 F 97.6 F Pulse Rate 66 65 72 Respiratory Rate 16 16 17 Blood Pressure 121/95 H 143/74 H Pulse Oximetry 96 98 Oxygen Flow Rate 0 0 Oxygen Delivery Method Nasal Cannula Oxygen Flow Rate 0 Narrative Exam Narrative: NAD, alert and oriented, fluent speech, calm. Knows the year but not the month. Normocephalic skull, EOMI, anicteric sclera, symmetric pupils. Oropharynx unremarkable, no droop. Neck supple, midline trachea, no adenopathy. Lungs clear, normal rate and effort. Heart regular, no murmur gallop or rub. Abdomen is soft, non distended and non tender. Extremities are free of edema. Skin is free of rash or lesions. Joints are not swollen or deformed. Judgment appears to be normal. Objective Labs 12/24/24 10:00 12/25/24 04:36 Labs: Laboratory Results - last 24 hr 12/24/24 12/25/24 12/25/24 21:48 04:36 09:55 Sodium 134 L Potassium 4.0 Chloride 109 H Carbon Dioxide 20 L BUN 20 H Creatinine 0.52 Estimated GFR > 60 BUN/Creatinine Ratio 38.5 H Glucose 100 H Lactate 0.9 Calcium 8.4 Troponin I 0.123 H* 0.198 H* 0.138 H* 12/25/24 16:13 Sodium Potassium Chloride Carbon Dioxide BUN Creatinine Estimated GFR BUN/Creatinine Ratio Glucose Lactate Calcium Troponin I 0.114 H [facility] Medical History History of chronic urinary tract infection TIA (transient ischemic attack) (~05/07/24) Anemia (~06/2023) Chronic left shoulder pain Aortic valve stenosis, severe Recurrent UTI (urinary tract infection) Muscle spasm of left lower extremity Urinary retention Urge incontinence Varicose veins of legs Osteopenia (02/05/15) 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 Shoulder pain Osteopenia (~1999) History of wrist fracture (~1949) Arthritis of foot (~1999) Cervical spine disease (~2013) Dry skin Chickenpox Measles Mumps Hearing loss Cataracts, bilateral Urinary incontinence, urge (~1999) Hemorrhoids (~1959) Murmur (~2010) Hyperlipidemia (08/29/13) Urinary incontinence (06/02/11) Surgical History S/P placement of cardiac pacemaker S/P TAVR (transcatheter aortic valve replacement) (~2022) Anesthesia complication Surgical procedure planned (~1964) History of bladder suspension procedure (~2001) Pilonidal cyst (~1999) History of vein stripping (~1965) History of knee replacement (~2011) History of knee replacement (~2010) Status post hysterectomy with oophorectomy (~1979) History of cataract removal with insertion of prosthetic lens Status post appendectomy (~1949) History of tonsillectomy (~1949) Family History Father No problems noted. Mother No problems noted. Grandfather No problems noted. Social History marital status: number of children: 4 household members: spouse Smoking Status: Never smoker alcohol intake: never substance use type: does not use caffeine: Yes Assessment & Plan Assessment & Plan narrative: 1. Syncopal episode, present on admission and active. 2. Family concern for possible reaction to amoxicillin, present on admission and active. 3. Possible demand ischemia or NSTEMI, present on admission and active. 4. Lactic acidosis, present on admission and active. 5. Cognitive impairment, present on admission and stable. 6. Aortic valve replacement, present on admission and stable. 7. Pacemaker, present on admission and presumably stable. Plan: -avoid further amoxicillin -troponin has peaked at 0.198. given rising and unclear etiology, will complete 48 hours of lovenox for possible NSTEMI. -TTE with normal EF, no wall motion abnormalities. -can stop IV fluids. -cardiac telemetry to continue, restart home metoprolol and monitor overnight to see if any bradycardia or events with resumption of this. Dispo: inpatient, anticipate discharge possibly tomorrow after completion of Lovenox therapy if no events after resumption of home beta poli. Code: She was full resuscitation, her is her proxy decision maker. Additional history obtained via discussion with patient's spouse today. Time-Based Coding :: [TOTAL MINUTES] spent with patient and on the chart (including review of chart, obtaining history, exam, reviewing outside data, placing orders, documenting exam and treatment plan, and counseling patient) on [DATE].
[2024-12-25] MEDS: METOPROLOL ER 25 MG TABLET 12.5 MG PO (20:51)
--- NOTE | 2024-12-25 20:52 | PC.NURSE ---
Addendum entered by Celi Lui R.N. 12/25/24 21:05: RN informed crystalizer operator, and Charge requested to double check patient understands importance of medication and taking VS q4hrs, Patient was educated on importance of medication and q4vs but still requested not to be woken up and did not want to have any disturbance tonight so she could rest. Original Note: night time nanny RN did physical assessment and patient communicated that she did not want to be woken up at 0130 for next injection of Rx ordered. RN educated patient on importance of medication but patient still refused stating she would rather sleep than take the medication. Patient verbalized understanding and had no further questions but requested to get as much sleep as possible .
[2024-12-26 04:50] LABS: Add Manual Diff / Slide Review NO; Basophils Absolute Auto 100 /uL (0-100); Eosinophils Absolute Auto 300 /uL (0-450); Hematocrit 33.6 % (36-46); Hemoglobin 11.2 g/dL (12.0-16.0); Lymphocytes Absolute Auto 1400 /uL (1100-4500); Mean Corpuscular HGB Conc 33.2 % (30-36); Mean Corpuscular Hemoglobin 28.6 PG (26-34); Mean Corpuscular Volume 86.2 fL (80-100); Monocytes Absolute Auto 400 /uL (0-900); Monocytes Percent Auto 8.5 % (3-14); Neutrophils Absolute Auto 3000 /uL (1500-7000); Neutrophils Percent Auto 57.5 % (50-75); Platelet Count 233 X10^3/uL (150-400); Red Cell Distribution Width 14.7 % (11.6-14.8); White Blood Cell Count 5.2 X10^3/uL (4.5-11.0)
--- NOTE | 2024-12-26 04:59 | EKG_ITS ---
[place] [address] [place] [id number] Test Date: 2024-12-26 Pat Name: Tracy Figueroa Department: [facility] Room: 216 Gender: Female Heel Shaver: medina : 1940 Requested By: Order Number: [id number] Reading MD: Willy Cifuentes Measurements Intervals [place] Rate: 61 P: ND: QRS: -49 QRSD: 150 T: 84 QT: 484 QTc: 487 Interpretive Statements Ventricular-paced rhythm with occasional sinus complexes Electronically Signed On 12-26-2024 19:08:18 PDT by Willy Cifuentes
[2024-12-26 05:06] LABS: Blood Urea Nitrogen 17 mg/dL (7-17); Calcium 8.8 mg/dL (8.4-10.2); Carbon Dioxide 20 mmol/L (22-32); Chloride 108 mmol/L (98-107); Estimated Glomerular Filt Rate > 60 mL/min (>60); Glucose 105 mg/dL (70-99); HEMOLYSIS < 15 (0-50); Magnesium 2.1 mg/dL (1.6-2.3); Potassium 3.9 mmol/L (3.4-5.1); Sodium 134 mmol/L (137-145)
[2024-12-26 05:18] LABS: Troponin I 0.077 ng/mL (0.01-0.034)
[2024-12-26 05:30] VITALS: BP 144/87; PULSE 70; RESP 18; TEMP 36.2; O2SAT 95
[2024-12-26] MEDS: ASPIRIN EC 81 MG TABLET PO (08:19)
--- NOTE | 2024-12-26 08:39 | PC.NURSE ---
Addendum entered by Kirsty Moon R.N. 12/26/24 08:40: She denies chest pain. Original Note: Patient is confused, she is getting up and down from chair. Chair alarm is on. Patient up to use the bathroom and did void. Dr.Holman ramos that patient is going to be discharged home today.
[2024-12-26 09:30] VITALS: BP 159/71; PULSE 69; RESP 23; TEMP 36.5; O2SAT 95
--- NOTE | 2024-12-26 09:35 | PM.DS.1 ---
History of Present Illness History of Present Illness Date Patient Seen: 12/26/24 Time Patient Seen: 18:37 Chief complaint: Syncope/Unresponsive Narrative: Per admitting provider, The patient is an 84-year-old female who has been to her for 64 years. 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 All of these procedures happened in [place]. She was followed by Dr. Pratt. Her PCP is Aicha garcia. She presents today with a syncopal episode. Her believes that this related to an allergic reaction to amoxicillin which she took to prepare for a dental procedure. He states she had a similar episode on a dental procedure day and therefore correlates this to the amoxicillin. She did not have an obvious rash or angioedema. She did have a syncopal episode today while on the toilet, urinating. He does not believe that this is vasovagal are associated with going to the bathroom in the past. She also does have a degree of cognitive impairment. She was accompanied by her son as well. The patient was apparently unresponsive for possibly 15 minutes but did have a pulse. Ultimately 911 was called and she was brought to the ER where she was relatively stable but had very mild elevation of her troponins. The case was discussed with Dr. Dougherty of [facility] who recommended serial enzymes and an ultrasound tomorrow to rule out wall motion abnormalities. He felt this may be demand ischemia related to micturition syncope. The patient was feel strongly that this relates to amoxicillin. I reassured the him that there maybe some lack of clarity in exactly what happened ultimately but that we would want to be sure that there was no evidence of cardiac arrhythmia or ischemia at this time and that he would likely avoid amoxicillin in the future regardless. Discharge Providers Provider Date of admission: 12/24/24 17:28 Discharge Date: 12/26/24 Primary care physician: Triny Garcia DO Consults: 12/25/24 15:44 Consult to Physical Therapy Evaluate & Treat Comment: Physician Instructions: Evaluate and Treat Discharge provider: Willy Cifuentes DO Summary Hospital Course Discharge Diagnosis: 1. Syncopal episode, present on admission and active. 2. Family concern for possible reaction to amoxicillin, present on admission and active. 3. Possible demand ischemia or NSTEMI, present on admission and active. 4. Lactic acidosis, present on admission and active. 5. Cognitive impairment, present on admission and stable. 6. Aortic valve replacement, present on admission and stable. 7. Pacemaker, present on admission and presumably stable. Hospital Course: This is an 84 year old female with PMH of aortic valve replacement, PPM, cognitive impairment who presented after a possible syncopal episode. Per family she was unresponsive for approximately 15 minutes, but continued to have a pulse. By the time of EMS arrival, she was hemodynamically stable. Upon presentation to the ER she had a mildly elevated lactate and elevated troponin. Cardiology recommended observation, troponin trending, and echocardiogram. Troponin did rise initially overnight, and was started on lovenox for possible NSTEMI. After this her troponin began to decrease. She did refuse initial dosing per nursing staff report, but TTE was ultimately unremarkable without wall motion abnormalities. Telemetry was further unremarkable after admission. Her home beta poli was re-initiated without evidence for bradycardia either. She continued to mobilize well, without dizziness, chest pain or dyspnea. She was discharged home without changes to her regular medications. It is possible she did have a reaction to amoxicillin, this was added to her allergy list here. Time Spent with Patient Time spent: Greater than 30 minutes Exam Vital Signs (past 8 hours): - 12/26/24 05:30 Temperature 97.1 F L Pulse Rate 70 Respiratory Rate 18 Blood Pressure 144/87 H Pulse Oximetry 95 Oxygen Flow Rate 0 Oxygen Delivery Method Nasal Cannula Oxygen Flow Rate 0 Narrative Exam Narrative: NAD, alert and oriented, fluent speech, calm. Knows the year but not the month. Normocephalic skull, EOMI, anicteric sclera, symmetric pupils. Oropharynx unremarkable, no droop. Neck supple, midline trachea, no adenopathy. Lungs clear, normal rate and effort. Heart regular, no murmur gallop or rub. Abdomen is soft, non distended and non tender. Extremities are free of edema. Skin is free of rash or lesions. Joints are not swollen or deformed. Judgment appears to be normal. Objective Labs 12/26/24 04:21 12/26/24 04:21 Labs: Laboratory Results - last 24 hr 12/25/24 12/25/24 12/26/24 09:55 16:13 04:21 WBC 5.2 RBC 3.90 L Hgb 11.2 L Hct 33.6 L MCV 86.2 MCH 28.6 MCHC 33.2 RDW 14.7 Plt Count 233 Neut % (Auto) 57.5 Lymph % (Auto) 27.0 D [place] % (Auto) 8.5 Eos % (Auto) 6.0 H Baso % (Auto) 1.0 Neut # (Auto) 3000 Lymph # (Auto) 1400 [place] # (Auto) 400 Eos # (Auto) 300 Baso # (Auto) 100 Sodium 134 L Potassium 3.9 Chloride 108 H Carbon Dioxide 20 L BUN 17 Creatinine 0.50 L Estimated GFR > 60 BUN/Creatinine Ratio 34.0 H Glucose 105 H Calcium 8.8 Magnesium 2.1 Troponin I 0.138 H* 0.114 H 0.077 H [facility] Medical History History of chronic urinary tract infection TIA (transient ischemic attack) (~05/07/24) Anemia (~06/2023) Chronic left shoulder pain Aortic valve stenosis, severe Recurrent UTI (urinary tract infection) Muscle spasm of left lower extremity Urinary retention Urge incontinence Varicose veins of legs Osteopenia (02/05/15) 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 Shoulder pain Osteopenia (~1999) History of wrist fracture (~1949) Arthritis of foot (~1999) Cervical spine disease (~2013) Dry skin Chickenpox Measles Mumps Hearing loss Cataracts, bilateral Urinary incontinence, urge (~1999) Hemorrhoids (~1959) Murmur (~2010) Hyperlipidemia (08/29/13) Urinary incontinence (06/02/11) Surgical History S/P placement of cardiac pacemaker S/P TAVR (transcatheter aortic valve replacement) (~2022) Anesthesia complication Surgical procedure planned (~1964) History of bladder suspension procedure (~2001) Pilonidal cyst (~1999) History of vein stripping (~1965) History of knee replacement (~2011) History of knee replacement (~2010) Status post hysterectomy with oophorectomy (~1979) History of cataract removal with insertion of prosthetic lens Status post appendectomy (~1949) History of tonsillectomy (~1949) Family History Father No problems noted. Mother No problems noted. Grandfather No problems noted. Social History marital status: number of children: 4 household members: spouse Smoking Status: Never smoker alcohol intake: never substance use type: does not use caffeine: Yes Discharge Plan Discharge Plan Patient Disposition: Home Provider Discharge Comment: You were admitted to the hospital after an episode of syncope. I think it is reasonable this may have been an allergic reaction to amoxicillin. You were treated for elevated troponins but your heart ultrasound showed a normal appearing heart. No changes to your current home medications are recommended. Discharge orders & Medications Prescriptions: Continued cyclosporine [Restasis] 1 EACH dropperette 0.4 ml OP Q12HP Qty: 0 nitrofurantoin macrocrystal 50 mg capsule 50 mg PO ONCE PM Qty: 90 2RF Estring 2 mg (7.5 mcg /24 hour) ring 1 vag ring vaginal [id number] Qty: 1 3RF Hold Instructions: backordered. metoprolol succinate 25 mg tablet extended release 24 hr 12.5 mg PO BEDTIME Patient Comments: pt states that she does not remember the exact dose ascorbic acid (vitamin C) 500 mg tablet 500 mg PO DAILY fluorouracil 5 % cream 1 applic topical BID Rx Instructions: pt states that she has not used this in a while aspirin 81 mg tablet,delayed release (DR/EC) 81 mg PO DAILY Follow up/Referrals: Triny Garcia DO [Primary Care Provider] - Diet/Activity/Treatments Diet: Diet as Tolerated and Regular Activity: As tolerated, no restrictions Visit Report/Discharge Packet Instructions: Cardiac Troponin Stand Alone Forms: Patient Portal/API, Stroke Signs & Symptoms Discharge Data Primary Care Provider: Triny Garcia
--- NOTE | 2024-12-26 11:51 | CM.DPNOTE ---
DCP Continued: Reviewed EMR and team rounds for pt?s medical status. Per MD, pt cleared to discharge home with family. Cancelled PT orders. DCP notified TCM group of pt discharge home as pt PCP is Dr. Garcia. Plan: Pt discharged home with family. CM Team will continue to follow for coordination of discharge plans. ABBIE Panda
== END 2024-12-26 10:54 | disposition home or self-care (01) | DRG 281 ==
LOC: ED 10:29 → AC 17:32
PROVIDERS: Internal Medicine; Admitting Provider Hospitalist; Emergency Provider Family Medicine; Family Provider Family Medicine; PCP Family Medicine; Referring Provider Family Medicine; Visit Provider Hospitalist
DX: I21.4 Non-ST elevation (NSTEMI) myocardial infarction (principal); E87.20 Acidosis, unspecified; R55 Syncope and collapse; I24.89 Other forms of acute ischemic heart disease; T36.0X5A Adverse effect of penicillins, initial encounter; G31.84 Mild cognitive impairment of uncertain or unknown etiology; Z95.2 Presence of prosthetic heart valve; Z95.0 Presence of cardiac pacemaker; Z88.0 Allergy status to penicillin
CPT/HCPCS: 36415; 51798; 70450; 71045; 71275; 80048; 80053; 82550; 83605; 83690; 83735; 83880; 84484; 85025; 85610; 85730; 87040; 93005; 93306; 96360; 96361; 99285; J1650; J7050; Q9967